=== PATIENT | female | born 1965 | race Asian ===

== ENCOUNTER 2017-09-02 23:56 | Emergency (ER) | payer OTHER ==
[2017-09-03 00:10] VITALS: BP 138/87
--- NOTE | 2017-09-03 02:49 | ED Physician Documentation ---
PD HPI SKIN - Stated complaint Stated Complaint: BODY PAIN - Chief complaint Chief Complaint: General - History obtained from History obtained from: Patient - History of Present Illness Timing - onset: How many days ago (chronic, but more severe past few days) Pain level now: 6 Location: Bodywide (pain is most pronounced in bilateral knees, ankles, and wrists) Associated symptoms: Joint pain. No: Fever Similar symptoms before: Diagnosis (psoriasis) - Additional information Additional information: patient with chronic and severe psoriasis c/o significantly worsening extent of skin lesions as well as joint pains over past few days. recently ran out of topical steroid. 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: None : None HEENT: None Psych: Depression, Anxiety Musculoskeletal: None Derm: Psoriasis - Past Surgical History Past Surgical History: No /GROUP CARE WORKER: section, Dilation and currettage - Present Medications Home Medications: Ambulatory Orders Medication Instructions Recorded Confirmed Lisinopril 40 mg PO DAILY 04/10/13 10/28/14 Simvastatin [Zocor] 40 mg PO HS 04/10/13 10/28/14 metFORMIN [Glucophage] 1,000 tab PO BID 04/10/13 10/28/14 Aspirin [Aspirin EC] 325 mg PO QDAC 11/15/13 10/28/14 Insulin Glargine,Hum.rec.anlog 50 units SQ BID 11/15/13 10/28/14 [Lantus] Gabapentin 400 mg PO TID 10/28/14 10/28/14 Hydroxyzine HCl 50 mg PO QID 10/28/14 10/28/14 Lorazepam [Ativan] 1 mg PO TID PRN #5 tablet 10/28/14 Propranolol [Inderal] 10 mg PO BID 10/28/14 10/28/14 Quetiapine Fumarate [Seroquel] 25 mg PO BID 10/28/14 10/28/14 Tizanidine/Irr Cntr-Irr Comb#2 4 mg PO QID 10/28/14 10/28/14 [Comfort Pac-Tizanidine Kit] Trazodone HCl 50 mg PO DAILY 10/28/14 10/28/14 Venlafaxine HCl [Venlafaxine HCl 225 mg PO DAILY 10/28/14 10/28/14 ER] Zolpidem [Ambien] 10 mg PO DAILY 10/28/14 10/28/14 Prednisone 10 mg PO [id number] #1 tab.ds.pk 09/03/17 oxyCODONE/ACET 5/325 [Percocet 5 1 - 2 each PO Q6H PRN #14 tablet 09/03/17 mg/325 mg] - Allergies Allergies/Adverse Reactions: Allergies Allergy/AdvReac Type Severity Reaction Status Date / Time tramadol Allergy Unknown Anxiety Verified 09/03/17 00:10 bupropion HCl * AdvReac Unknown Anxiety Verified 09/03/17 00:10 [From Wellbutrin] fluoxetine HCl * AdvReac Unknown Hallucinati Verified 09/03/17 00:10 [From Prozac] ons rosiglitazone AdvReac Unknown Rash Verified 09/03/17 00:10 - Social History Does the pt smoke?: Yes Smoking Status: Current every day smoker Does the pt drink ETOH?: Yes Does the pt have substance abuse?: Yes - Immunizations Immunizations are current?: Yes - POLST Patient has POLST: No PD ED PE NORMAL - Vitals Vital signs reviewed: Yes - General General: Alert and oriented X 3, No acute distress, Well developed/nourished PD ED PE EXPANDED - Derm Derm: Rash (extensive, diffuse psoriasis that appears to be body-wide) - Extremities Extremities: Pedal edema bilateral Results - Vitals Vitals: Vital Signs - 24 hr 09/03/17 03:13 Heart Rate 84 Respiratory 16 Rate O2 Saturation 99 Oxygen O2 Source Room air PD MEDICAL DECISION MAKING - ED course Complexity details: reviewed old records, considered differential, d/w patient Departure - Departure Disposition: 01 Home, Self Care Clinical Impression: Psoriasis Condition: Good Instructions: ED Psoriasis Follow-Up: LAN LEYVA [Primary Care Provider] - Prescriptions: oxyCODONE/ACET 5/325 [Percocet 5 mg/325 mg] 1 - 2 each PO Q6H PRN #14 tablet PRN Reason: Pain Prednisone 10 mg PO [id number] #1 tab.ds.pk Discharge Date/Time: 09/03/17 03:15
[2017-09-03] MEDS ORDERED: oxyCODONE/ACET 5/325 Prepack 4 PO STA (03:01)
[2017-09-03] MEDS ORDERED: predniSONE 20 MG TABLET PO STA (03:02)
[2017-09-03] MEDS ORDERED: predniSONE 20 MG TABLET ONE (03:11)
[2017-09-03] MEDS ORDERED: oxyCODONE/ACET 5/325 Prepack 4 PO ONE (03:11)
== END 2017-09-03 03:15 | disposition home or self-care (01) ==
LOC: ED 23:56
DX: L40.9 Psoriasis, unspecified (principal); I10 Essential (primary) hypertension; E11.9 Type 2 diabetes mellitus without complications; F17.200 Nicotine dependence, unspecified, uncomplicated; Z79.82 Long term (current) use of aspirin; Z79.4 Long term (current) use of insulin
CPT/HCPCS: 99283; J7512

== ENCOUNTER 2018-04-16 10:53 | Outpatient (CLI) | payer OTHER ==
[2018-04-16 12:45] LABS: BASOPHILS # (AUTO) 0.1 10^3/uL (0.0-0.1); BASOPHILS % (AUTO) 0.8 %; EOSINOPHILS # (AUTO) 0.2 10^3/uL (0.0-0.7); EOSINOPHILS % (AUTO) 2.7 %; HGB - HEMOGLOBIN 12.5 g/dL (12.0-16.0); LYMPHOCYTES # (AUTO) 1.8 10^3/uL (1.5-3.5); LYMPHOCYTES % (AUTO) 23.2 %; MEAN CORPUSCULAR HEMOGLOBIN 29.9 pg (27.0-31.0); MEAN CORPUSCULAR HGB CONC 34.4 g/dL (32.0-36.0); MEAN PLATELET VOLUME 8.5 fL (7.9-10.8); MONOCYTES # (AUTO) 0.5 10^3/uL (0.0-1.0); MONOCYTES % (AUTO) 6.8 %; NEUTROPHILS # (AUTO) 5.3 10^3/uL (1.5-6.6); NEUTROPHILS % (AUTO) 66.5 %; PLT - PLATELET COUNT 169 10^3/uL (130-450); RED BLOOD COUNT 4.18 10^6/uL (4.20-5.40); RED CELL DISTRIBUTION WIDTH 12.7 % (12.0-15.0)
[2018-04-16 12:56] LABS: BUN - BLOOD UREA NITROGEN 19 mg/dL (6-20); CALCIUM 8.6 mg/dL (8.5-10.3); CARBON DIOXIDE - CO2 29 mmol/L (21-32); CHLORIDE 93 mmol/L (101-111); CHOL/HDL RATIO 5.3 (<4.4); CHOLESTEROL 231 mg/dL; CREATININE 0.9 mg/dL (0.4-1.0); GFR - MDRD 66 (>89); GLUCOSE 309 mg/dL (70-100); HDL CHOLESTEROL 44 mg/dL; LDL CHOLESTEROL,CALCULATED 161 mg/dL; LDL/HDL RATIO 3.7 (<4.4); SODIUM 130 mmol/L (135-145); VLDL CHOLESTEROL 26 mg/dL
[2018-04-16 13:10] LABS: HB2 TOTAL 13.4 g/dL; HEMOGLOBIN A1C 1.65 g/dL; HEMOGLOBIN A1C % 13.4 % (4.6-6.2)
== END 2018-04-16 10:54 ==
LOC: LAB.N 10:53
PROVIDERS: ATTEND Physician Assistant Medical
DX: Z00.00 Encounter for general adult medical examination without abnormal findings (principal); I10 Essential (primary) hypertension; E11.9 Type 2 diabetes mellitus without complications; L04.9 Acute lymphadenitis, unspecified; F11.20 Opioid dependence, uncomplicated; F31.81 Bipolar II disorder
CPT/HCPCS: 36415; 80048; 80061; 83036; 83721; 84443; 85025

== ENCOUNTER 2018-05-07 08:31 | Day surgery (SDC) | payer OTHER ==
[2018-05-07] MEDS ORDERED: LACTATED RINGERS 1,000 ML IV ONE (09:10)
[2018-05-07] MEDS ORDERED: INSULIN REGULAR HUMAN 100 UNIT/1 ML 10 ML MDV ONE (09:43)
[2018-05-07] MEDS ORDERED: fentaNYL 100 MCG/2 ML VIAL IVP ONE (10:15)
[2018-05-07] MEDS ORDERED: MIDAZOLAM 2 MG/2 ML VIAL IVP ONE (10:15)
[2018-05-07] MEDS: INSULIN REGULAR HUMAN 100 UNIT/1 ML 10 ML MDV ONE ×2 (10:56→10:58)
[2018-05-07] MEDS ORDERED: SODIUM CHLORIDE FLUSH 0.9% 10 ML SYRINGE ONE (11:06)
[2018-05-07 11:28] VITALS: BP 99/67
== END 2018-05-07 08:32 | disposition home or self-care (01) ==
LOC: SDS 08:31
PROVIDERS: ATTEND Surgery
PROC: 0DJD8ZZ Inspection of Lower Intestinal Tract, Via Natural or Artificial Opening Endoscopic (ICD-10-PCS; principal; 2018-05-07 10:00)
DX: Z12.11 Encounter for screening for malignant neoplasm of colon (principal); E11.9 Type 2 diabetes mellitus without complications; I10 Essential (primary) hypertension; E78.5 Hyperlipidemia, unspecified; Z79.4 Long term (current) use of insulin; Z79.84 Long term (current) use of oral hypoglycemic drugs; L40.0 Psoriasis vulgaris; Z87.891 Personal history of nicotine dependence
CPT/HCPCS: 45378; J1815; J7120

== ENCOUNTER 2018-09-23 16:59 | Outpatient (CLI) | payer OTHER | END 2018-09-23 17:00 | disposition critical access hospital (66) | LOC: EMS 16:59 | PROVIDERS: ATTEND Surgery | DX: R11.10 Vomiting, unspecified (principal); R47.81 Slurred speech | CPT/HCPCS: A0425; A0427 ==

== ENCOUNTER 2018-09-23 17:23 | Emergency (ER) | payer OTHER ==
[2018-09-23] MEDS ORDERED: SODIUM CHLORIDE 0.9% 1,000 ML IV ONE (17:45)
[2018-09-23] MEDS ORDERED: THIAMINE INJ 100 MG in SODIUM CHLORIDE 0.9% 50 ML IV STA (17:45)
[2018-09-23 18:12] LABS: MUDS CUTOFF CONCENTRATIONS CUTOFF CONC BELOW:
--- NOTE | 2018-09-23 18:20 | ED Physician Documentation ---
History of Present Illness - Stated complaint Stated Complaint: ETOH - Chief complaint Chief Complaint: General - History obtained from History obtained from: Patient, EMS - History of Present Illness Timing: Today (52-year-old woman, I am getting a different history from the nurse's notes then I am from the patient's. The nurse's notes were reviewed, I guess she was somnolent at home. She is awake and alert for me and says she is having trouble sleeping and would like something to help her sleep. She has had a lot of trouble with her demented father and his behavior at home and she plans for him to be soon going back to the [facility]. She has no specific complaints other than wanting to me to sleep. 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 : None HEENT: None Psych: Depression, Anxiety Musculoskeletal: None Derm: Psoriasis - Past Surgical History Past Surgical History: No /REGISTRATION SCHEDULING SPECIALIST: section, Dilation and currettage - Present Medications Home Medications: Ambulatory Orders Medication Instructions Recorded Confirmed Lisinopril 40 mg PO DAILY 04/10/13 05/07/18 Simvastatin [Zocor] 40 mg PO HS 04/10/13 05/07/18 Insulin Glargine,Hum.rec.anlog 50 units SQ DAILY PM 11/15/13 05/07/18 [Lantus] Gabapentin 1 mg PO TID 10/28/14 05/07/18 Hydroxyzine HCl 50 mg PO QID PRN 10/28/14 10/28/14 Venlafaxine HCl [Venlafaxine HCl 225 mg PO DAILY 10/28/14 05/07/18 ER] Zolpidem [Ambien] 10 mg PO DAILY 10/28/14 05/07/18 Aspirin [Adult Aspirin Regimen] 1 mg PO DAILY 05/06/18 05/07/18 metFORMIN [Glucophage] 1 mg PO BID 05/06/18 05/07/18 - Allergies Allergies/Adverse Reactions: Allergies Allergy/AdvReac Type Severity Reaction Status Date / Time tramadol Allergy Unknown Anxiety Verified 09/03/17 00:10 bupropion HCl * AdvReac Unknown Anxiety Verified 09/03/17 00:10 [From Wellbutrin] fluoxetine HCl * AdvReac Unknown Hallucinati Verified 09/03/17 00:10 [From Prozac] ons rosiglitazone AdvReac Unknown Rash Verified 09/03/17 00:10 - Social History Does the pt smoke?: Yes Smoking Status: Current every day smoker Does the pt drink ETOH?: Yes ETOH Use: Liquor Does the pt have substance abuse?: Yes - Immunizations Immunizations are current?: Yes - POLST Patient has POLST: No PD ED PE NORMAL - Vitals Vital signs reviewed: Yes - General General: Alert and oriented X 3, No acute distress - HEENT HEENT: PERRL, EOMI - Neck Neck: Supple, no meningeal sign, No bony TTP - Derm Derm: Other (Chronic bad psoriasis) - Neuro Neuro: Alert and oriented X 3, Normal speech - Psych Psych: Normal mood, Normal affect Results - Vitals Vitals: Vital Signs - 24 hr 09/23/18 17:27 Temperature 36.2 C L Heart Rate 103 H Respiratory 20 Rate Blood Pressure 114/74 O2 Saturation 100 Oxygen O2 Source Room air - Labs Labs: Laboratory Tests 09/23/18 09/23/18 09/23/18 18:00 18:20 18:20 WBC 4.4 L RBC 4.64 Hgb 13.8 Hct 40.1 MCV 86.5 MCH 29.7 MCHC 34.4 RDW 13.6 Plt Count 250 MPV 7.9 Neut # (Auto) 1.8 Lymph # (Auto) 2.1 [place] # (Auto) 0.4 Eos # (Auto) 0.1 Baso # (Auto) 0.1 Absolute Nucleated RBC 0.01 Nucleated RBC % 0.2 Sodium 136 Potassium 4.5 Chloride 98 L Carbon Dioxide 26 Anion Gap 12.0 BUN 18 Creatinine 1.1 H Estimated GFR (MDRD) 53 L Glucose 370 H Calcium 8.6 Total Bilirubin 0.5 AST 62 H ALT 45 Alkaline Phosphatase 84 Total Protein 7.5 Albumin 3.5 Globulin 4.0 Albumin/Globulin Ratio 0.9 L Lipase 54 H Urine Color YELLOW Urine Clarity CLEAR Urine pH 7.0 Ur Specific [place] 1.010 Urine Protein NEGATIVE Urine Glucose (UA) >=1000 H Urine Ketones NEGATIVE Urine Occult Blood NEGATIVE Urine Nitrite NEGATIVE Urine Bilirubin NEGATIVE Urine Urobilinogen 0.2 (NORMAL) Ur Leukocyte Esterase NEGATIVE Ur Microscopic Review NOT INDICATED Urine Culture Comments NOT INDICATED Salicylates < 6.0 Urine Opiates Screen NEGATIVE Ur Oxycodone Screen NEGATIVE Urine Methadone Screen NEGATIVE Ur Propoxyphene Screen NEGATIVE Acetaminophen < 10 L Ur Barbiturates Screen NEGATIVE Ur Tricyclics Screen NEGATIVE Ur Phencyclidine Scrn NEGATIVE Ur Amphetamine Screen NEGATIVE U Methamphetamines Scrn NEGATIVE U Benzodiazepines Scrn NEGATIVE Urine Cocaine Screen NEGATIVE U Cannabinoids Screen NEGATIVE Ethyl Alcohol 160.0 PD MEDICAL DECISION MAKING - ED course ED course: 52-year-old woman presents after being obtunded at home related to alcohol abuse but complaining of poor sleep with no evidence of obtundation here. She was observed and had normal mental status. Labs as shown. She was given 2 trazodone to go for tonight. 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 Follow-up with your physician. You can also call Paulie napoles for outpatient alcohol counseling, .
[2018-09-23 18:21] LABS: BILIRUBIN,URINE NEGATIVE (NEGATIVE); GLUCOSE, URINE (UA) >=1000 mg/dL (NEGATIVE); KETONES,URINE (UA) NEGATIVE (NEGATIVE); LEUKOCYTE ESTERASE, URINE NEGATIVE (NEGATIVE); NITRITE,URINE NEGATIVE (NEGATIVE); OCCULT BLOOD,URINE NEGATIVE (NEGATIVE); PROTEIN,URINE NEGATIVE (NEGATIVE); UROBILINOGEN,URINE 0.2 (NORMAL) E.U./dL (NORMAL)
[2018-09-23 18:23] LABS: CLARITY,URINE CLEAR (CLEAR)
[2018-09-23 18:32] LABS: AMPHETAMINE SCREEN,URINE NEGATIVE (NEGATIVE); BENZODIAZEPINES SCREEN, URINE NEGATIVE (NEGATIVE); COCAINE SCREEN URINE NEGATIVE (NEGATIVE); METHADONE SCREEN, URINE NEGATIVE (NEGATIVE); METHAMPHETAMINES SCREEN, URINE NEGATIVE (NEGATIVE); OPIATE SCREEN, URINE NEGATIVE (NEGATIVE); OXYCODONE SCREEN, URINE NEGATIVE (NEGATIVE); PROPOXYPHENE SCREEN, URINE NEGATIVE (NEGATIVE); TRICYCLIC ANTIDEPRESSANT,URINE NEGATIVE (NEGATIVE)
[2018-09-23 18:38] LABS: BASOPHILS # (AUTO) 0.1 10^3/uL (0.0-0.1); EOSINOPHILS # (AUTO) 0.1 10^3/uL (0.0-0.7); EOSINOPHILS % (AUTO) 2.5 %; HGB - HEMOGLOBIN 13.8 g/dL (12.0-16.0); LYMPHOCYTES # (AUTO) 2.1 10^3/uL (1.5-3.5); LYMPHOCYTES % (AUTO) 47.1 %; MEAN CORPUSCULAR HEMOGLOBIN 29.7 pg (27.0-31.0); MEAN CORPUSCULAR HGB CONC 34.4 g/dL (32.0-36.0); MEAN CORPUSCULAR VOLUME 86.5 fL (81.0-99.0); MEAN PLATELET VOLUME 7.9 fL (7.9-10.8); MONOCYTES # (AUTO) 0.4 10^3/uL (0.0-1.0); MONOCYTES % (AUTO) 8.4 %; NEUTROPHILS # (AUTO) 1.8 10^3/uL (1.5-6.6); PLT - PLATELET COUNT 250 10^3/uL (130-450); RED BLOOD COUNT 4.64 10^6/uL (4.20-5.40); RED CELL DISTRIBUTION WIDTH 13.6 % (12.0-15.0); WHITE BLOOD COUNT 4.4 x10^3/uL (4.8-10.8)
[2018-09-23 18:42] LABS: ACETAMINOPHEN < 10 ug/mL (10-30); ALBUMIN 3.5 g/dL (3.2-5.5); ALBUMIN/GLOBULIN RATIO 0.9 (1.0-2.2); ALKALINE PHOSPHATASE 84 IU/L (42-121); ALT ALANINE AMINOTRANSFERASE 45 IU/L (10-60); AST ASPARTATE AMINOTRANSFERASE 62 IU/L (10-42); BILIRUBIN,TOTAL 0.5 mg/dL (0.2-1.0); BUN - BLOOD UREA NITROGEN 18 mg/dL (6-20); CALCIUM 8.6 mg/dL (8.5-10.3); CARBON DIOXIDE - CO2 26 mmol/L (21-32); CHLORIDE 98 mmol/L (101-111); CREATININE 1.1 mg/dL (0.4-1.0); GFR - MDRD 53 (>89); GLUCOSE 370 mg/dL (70-100); LIPASE 54 U/L (22-51); SALICYLATE < 6.0 mg/dL; SODIUM 136 mmol/L (135-145); TOTAL PROTEIN 7.5 g/dL (6.7-8.2)
[2018-09-23] MEDS ORDERED: traZODone 50 MG TABLET PO STA (18:46)
[2018-09-23 19:37] VITALS: BP 127/85
== END 2018-09-23 19:42 | disposition home or self-care (01) ==
LOC: EDUNIT# → ED 17:23
DX: F10.129 Alcohol abuse with intoxication, unspecified (principal); I10 Essential (primary) hypertension; E11.9 Type 2 diabetes mellitus without complications; Z79.4 Long term (current) use of insulin; Z79.82 Long term (current) use of aspirin; F17.200 Nicotine dependence, unspecified, uncomplicated
CPT/HCPCS: 36415; 80053; 80306; 80307; 80320; 80329; 81003; 83690; 85025; 96374; 99283; A9270; 81001; 87086

== ENCOUNTER 2018-10-03 14:44 | Outpatient (CLI) | payer OTHER | END 2018-10-03 14:45 | disposition critical access hospital (66) | LOC: EMS 14:44 | PROVIDERS: ATTEND Surgery | DX: R41.82 Altered mental status, unspecified (principal) | CPT/HCPCS: A0425; A0429 ==

== ENCOUNTER 2018-10-03 15:07 | Emergency (ER) | payer OTHER ==
[2018-10-03] MEDS ORDERED: OLANZapine 10 MG VIAL IM STA (15:12)
--- NOTE | 2018-10-03 15:25 | ED Physician Documentation ---
PD HPI ALTERED MENTAL STATUS - Stated complaint Stated Complaint: ETOH - Chief complaint Chief Complaint: Neuro - History obtained from History obtained from: Patient, EMS - History of Present Illness Timing - onset: Today Timing - duration: Days (1) Timing - details: Other (unknown) Quality / character: Confused, Combative Associated symptoms: Other (patient reportedly drinking etoh today, ran from police and fell.) Contributing factors: Diabetic, Other (etoh) Basline status: Alert and oriented X 3 Similar symptoms before: Diagnosis (etoh intoxication) Review of Systems Unable to obtain: Confused PD PAST MEDICAL HISTORY - Past Medical History Past Medical History: Yes Cardiovascular: Hypertension, High cholesterol Respiratory: Asthma Endocrine/Autoimmune: Type 2 diabetes GI: GERD 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 : None HEENT: None Psych: Depression, Anxiety Musculoskeletal: None Derm: Psoriasis - Past Surgical History Past Surgical History: No /DRIVER 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: section, 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 and currettage - Present Medications Home Medications: Ambulatory Orders Medication Instructions Recorded Confirmed Lisinopril 40 mg PO DAILY 04/10/13 05/07/18 Simvastatin [Zocor] 40 mg PO HS 04/10/13 05/07/18 Insulin Glargine,Hum.rec.anlog 50 units SQ DAILY PM 11/15/13 05/07/18 [Lantus] Gabapentin 1 mg PO TID 10/28/14 05/07/18 Hydroxyzine HCl 50 mg PO QID PRN 10/28/14 10/28/14 Venlafaxine HCl [Venlafaxine HCl 225 mg PO DAILY 10/28/14 05/07/18 ER] Zolpidem [Ambien] 10 mg PO DAILY 10/28/14 05/07/18 Aspirin [Adult Aspirin Regimen] 1 mg PO DAILY 05/06/18 05/07/18 metFORMIN [Glucophage] 1 mg PO BID 05/06/18 05/07/18 Nitrofurantoin Monohyd/M-Cryst 100 mg PO BID #10 capsule 10/03/18 [Macrobid 100 mg Capsule] - Allergies Allergies/Adverse Reactions: Allergies Allergy/AdvReac Type Severity Reaction Status Date / Time tramadol Allergy Unknown Anxiety Verified 10/03/18 15:14 bupropion HCl * AdvReac Unknown Anxiety Verified 10/03/18 15:14 [From Wellbutrin] fluoxetine HCl * AdvReac Unknown Hallucinati Verified 10/03/18 15:14 [From Prozac] ons rosiglitazone AdvReac Unknown Rash Verified 10/03/18 15:14 - Social History Does the pt smoke?: Yes Smoking Status: Current every day smoker Does the pt drink ETOH?: Yes Does the pt have substance abuse?: Yes - Immunizations Immunizations are current?: Yes - POLST Patient has POLST: No PD ED PE NORMAL - Vitals Vital signs reviewed: Yes - General General: No acute distress - HEENT HEENT: PERRL, Ears normal, Moist mucous membranes, Pharynx benign - Neck Neck: Supple, no meningeal sign, No adenopathy - Cardiac Cardiac: RRR, Strong equal pulses - Respiratory Respiratory: No respiratory distress, Clear bilaterally - Abdomen Abdomen: Soft, Non tender, Non distended - Back Back: No spinal TTP - Derm Derm: Warm and dry, Other (diffuse eczema) - Extremities Extremities: No edema - Neuro Neuro: Other (alert, combative) Results - Vitals Vitals: Vital Signs - 24 hr 10/03/18 10/03/18 10/03/18 15:09 16:09 17:20 Temperature 36.0 C L Heart Rate 100 88 66 Respiratory 12 20 Rate Blood Pressure 94/65 122/79 O2 Saturation 100 99 100 Oxygen O2 Source Room air - Labs Labs: Laboratory Tests 10/03/18 10/03/18 10/03/18 15:25 15:25 15:25 WBC 5.5 RBC 4.14 L Hgb 12.4 Hct 36.1 L MCV 87.1 MCH 29.9 MCHC 34.3 RDW 13.4 Plt Count 234 MPV 7.6 L Neut # (Auto) 3.0 Lymph # (Auto) 1.9 [place] # (Auto) 0.3 Eos # (Auto) 0.2 Baso # (Auto) 0.1 Absolute Nucleated RBC 0.00 Nucleated RBC % 0.1 Sodium 135 Potassium 3.7 Chloride 101 Carbon Dioxide 25 Anion Gap 9.0 BUN 8 Creatinine 0.9 Estimated GFR (MDRD) 66 L Glucose 295 H Calcium 8.8 Total Bilirubin 0.4 AST 37 ALT 27 Alkaline Phosphatase 77 Total Protein 7.7 Albumin 3.5 Globulin 4.2 Albumin/Globulin Ratio 0.8 L Lipase 62 H TSH 0.39 Urine Color Urine Clarity Urine pH Ur Specific [place] Urine Protein Urine Glucose (UA) Urine Ketones Urine Occult Blood Urine Nitrite Urine Bilirubin Urine Urobilinogen Ur Leukocyte Esterase Urine RBC Urine WBC Urine WBC Clumps Ur Squamous Epith Cells Urine Bacteria Ur Microscopic Review Urine Culture Comments Urine HCG, Qual Salicylates < 6.0 Urine Opiates Screen Ur Oxycodone Screen Urine Methadone Screen Ur Propoxyphene Screen Acetaminophen < 10 L Ur Barbiturates Screen Ur Tricyclics Screen Ur Phencyclidine Scrn Ur Amphetamine Screen U Methamphetamines Scrn U Benzodiazepines Scrn Urine Cocaine Screen U Cannabinoids Screen Ethyl Alcohol 242.7 10/03/18 10/03/18 17:10 17:10 WBC RBC Hgb Hct MCV MCH MCHC RDW Plt Count MPV Neut # (Auto) Lymph # (Auto) [place] # (Auto) Eos # (Auto) Baso # (Auto) Absolute Nucleated RBC Nucleated RBC % Sodium Potassium Chloride Carbon Dioxide Anion Gap BUN Creatinine Estimated GFR (MDRD) Glucose Calcium Total Bilirubin AST ALT Alkaline Phosphatase Total Protein Albumin Globulin Albumin/Globulin Ratio Lipase TSH Urine Color YELLOW Urine Clarity CLEAR Urine pH 6.0 Ur Specific [place] <=1.005 <=1.005 Urine Protein NEGATIVE Urine Glucose (UA) >=1000 H Urine Ketones NEGATIVE Urine Occult Blood NEGATIVE Urine Nitrite NEGATIVE Urine Bilirubin NEGATIVE Urine Urobilinogen 0.2 (NORMAL) Ur Leukocyte Esterase TRACE H Urine RBC 0-5 Urine WBC 11-25 H Urine WBC Clumps PRESENT Ur Squamous Epith Cells FEW Squamous Urine Bacteria Many H Ur Microscopic Review INDICATED Urine Culture Comments INDICATED Urine HCG, Qual NEGATIVE Salicylates Urine Opiates Screen NEGATIVE Ur Oxycodone Screen NEGATIVE Urine Methadone Screen NEGATIVE Ur Propoxyphene Screen NEGATIVE Acetaminophen Ur Barbiturates Screen NEGATIVE Ur Tricyclics Screen NEGATIVE Ur Phencyclidine Scrn NEGATIVE Ur Amphetamine Screen NEGATIVE U Methamphetamines Scrn NEGATIVE U Benzodiazepines Scrn POSITIVE H Urine Cocaine Screen NEGATIVE U Cannabinoids Screen NEGATIVE Ethyl Alcohol - Rads (name of study) head w/o ct Radiology: Prelim report reviewed, EMP read contemporaneously, See rad report (Negative nonenhanced head CT. ) PD MEDICAL DECISION MAKING - ED course Complexity details: reviewed results, re-evaluated patient, considered differential, d/w patient, d/w family ED course: Patient is a 52-year-old female who presents to the emergency department with altered mental status secondary to alcohol intoxication. No acute findings on laboratory testing or head CT other than her elevated alcohol level. She was given Zyprexa and placed in restraints initially, then slept in the emergency department. Her mental status is improved when she awoke. is comfortable taking her home at this time. Patient and family counseled regarding signs and symptoms for which I believe and urgent re-evaluation would be necessary. Patient with good understanding of and agreement to plan and is comfortable going home at this time This document was made in part using voice recognition software. While efforts are made to proofread this document, sound alike and grammatical errors may occur. Departure - Departure Disposition: Home, Self Care Clinical Impression: Alcohol intoxication UTI (urinary tract infection) Qualifiers: Urinary tract infection type: acute cystitis Hematuria presence: without aaron turia Qualified Code(s): N30.00 - Acute cystitis without hematuria Condition: Good Instructions: ED Alcohol Intoxication Follow-Up: Joel Andujar PA-C [Primary Care Provider] - Within 1 week Prescriptions: Nitrofurantoin Monohyd/M-Cryst [Macrobid 100 mg Capsule] 100 mg PO BID #10 capsule Comments: Return if you worsen. You need to stop drinking alcohol as eventually this will kill you. You need to take all antibiotics for your bladder infection. Discharge Date/Time: 10/03/18 17:55
[2018-10-03 15:31] LABS: BASOPHILS # (AUTO) 0.1 10^3/uL (0.0-0.1); BASOPHILS % (AUTO) 0.9 %; EOSINOPHILS # (AUTO) 0.2 10^3/uL (0.0-0.7); EOSINOPHILS % (AUTO) 3.2 %; HGB - HEMOGLOBIN 12.4 g/dL (12.0-16.0); LYMPHOCYTES # (AUTO) 1.9 10^3/uL (1.5-3.5); LYMPHOCYTES % (AUTO) 35.2 %; MEAN CORPUSCULAR HEMOGLOBIN 29.9 pg (27.0-31.0); MEAN CORPUSCULAR HGB CONC 34.3 g/dL (32.0-36.0); MEAN CORPUSCULAR VOLUME 87.1 fL (81.0-99.0); MEAN PLATELET VOLUME 7.6 fL (7.9-10.8); MONOCYTES # (AUTO) 0.3 10^3/uL (0.0-1.0); MONOCYTES % (AUTO) 6.3 %; NEUTROPHILS % (AUTO) 54.4 %; PLT - PLATELET COUNT 234 10^3/uL (130-450); RED BLOOD COUNT 4.14 10^6/uL (4.20-5.40); RED CELL DISTRIBUTION WIDTH 13.4 % (12.0-15.0); WHITE BLOOD COUNT 5.5 x10^3/uL (4.8-10.8)
[2018-10-03 15:46] LABS: ACETAMINOPHEN < 10 ug/mL (10-30); ALBUMIN 3.5 g/dL (3.2-5.5); ALBUMIN/GLOBULIN RATIO 0.8 (1.0-2.2); ALKALINE PHOSPHATASE 77 IU/L (42-121); ALT ALANINE AMINOTRANSFERASE 27 IU/L (10-60); AST ASPARTATE AMINOTRANSFERASE 37 IU/L (10-42); BILIRUBIN,TOTAL 0.4 mg/dL (0.2-1.0); BUN - BLOOD UREA NITROGEN 8 mg/dL (6-20); CALCIUM 8.8 mg/dL (8.5-10.3); CARBON DIOXIDE - CO2 25 mmol/L (21-32); CHLORIDE 101 mmol/L (101-111); CREATININE 0.9 mg/dL (0.4-1.0); GFR - MDRD 66 (>89); GLUCOSE 295 mg/dL (70-100); LIPASE 62 U/L (22-51); SALICYLATE < 6.0 mg/dL; SODIUM 135 mmol/L (135-145); TOTAL PROTEIN 7.7 g/dL (6.7-8.2)
--- NOTE | 2018-10-03 16:21 | CT Report ---
Reason: GABY WHITE Procedure Date: 10/03/2018 Accession Number: [id number] / [id number] Procedure: CT - Head W/O CPT Code: FULL RESULT: EXAM: CT HEAD EXAM DATE: 10/03/2018 04:05 PM. CLINICAL HISTORY: GABY WHITE. COMPARISON: HEAD W/O 12/20/2013 7:07 AM. TECHNIQUE: Multiaxial CT images were obtained from the foramen magnum to the vertex. Reformats: Sagittal and coronal. IV contrast: None. In accordance with CT protocol optimization, one or more of the following dose reduction techniques were utilized for this exam: automated exposure control, adjustment of mA and/or KV based on patient size, or use of iterative reconstructive technique. FINDINGS: Parenchyma: No intraparenchymal hemorrhage. No evidence of mass, midline shift, or CT findings of infarction. Bentley-white differentiation is distinct. Extraaxial Spaces: Normal for age. No subdural or epidural collections identified. Ventricles: Normal in size and position. Sinuses and Orbits: Imaged paranasal sinuses, orbits, and mastoids show no significant abnormality. Bones: No evidence of fracture or calvarial defect. Other: None. IMPRESSION: Negative nonenhanced head CT. RADIA
[2018-10-03 17:12] LABS: MUDS CUTOFF CONCENTRATIONS CUTOFF CONC BELOW:
[2018-10-03 17:19] LABS: BILIRUBIN,URINE NEGATIVE (NEGATIVE); GLUCOSE, URINE (UA) >=1000 mg/dL (NEGATIVE); KETONES,URINE (UA) NEGATIVE (NEGATIVE); LEUKOCYTE ESTERASE, URINE TRACE (NEGATIVE); NITRITE,URINE NEGATIVE (NEGATIVE); OCCULT BLOOD,URINE NEGATIVE (NEGATIVE); PROTEIN,URINE NEGATIVE (NEGATIVE); UROBILINOGEN,URINE 0.2 (NORMAL) E.U./dL (NORMAL)
[2018-10-03 17:21] VITALS: BP 122/79
[2018-10-03 17:31] LABS: CLARITY,URINE CLEAR (CLEAR)
[2018-10-03 17:32] LABS: AMPHETAMINE SCREEN,URINE NEGATIVE (NEGATIVE); BENZODIAZEPINES SCREEN, URINE POSITIVE (NEGATIVE); COCAINE SCREEN URINE NEGATIVE (NEGATIVE); HCG UR QUAL NEGATIVE; METHADONE SCREEN, URINE NEGATIVE (NEGATIVE); METHAMPHETAMINES SCREEN, URINE NEGATIVE (NEGATIVE); OPIATE SCREEN, URINE NEGATIVE (NEGATIVE); OXYCODONE SCREEN, URINE NEGATIVE (NEGATIVE); PROPOXYPHENE SCREEN, URINE NEGATIVE (NEGATIVE); TRICYCLIC ANTIDEPRESSANT,URINE NEGATIVE (NEGATIVE)
[2018-10-03 17:35] LABS: RBC,URINE 0-5 /HPF (0-5); WBC CLUMPS,URINE PRESENT
[2018-10-03 17:36] LABS: BACTERIA,URINE Many /HPF (None Seen); SQUAMOUS EPITHELIAL CELL,UR FEW Squamous (<= Few)
[2018-10-03] MEDS ORDERED: LIDOCAINE 1% 2 ML VIAL SUBQ ONE (17:37)
[2018-10-03] MEDS ORDERED: cefTRIAXone 1 GM VIAL IM STA (17:37)
== END 2018-10-03 17:55 | disposition home or self-care (01) ==
LOC: EDUNIT# → ED 15:07
DX: F10.129 Alcohol abuse with intoxication, unspecified (principal); N30.00 Acute cystitis without hematuria; I10 Essential (primary) hypertension; E11.9 Type 2 diabetes mellitus without complications; F17.200 Nicotine dependence, unspecified, uncomplicated; Z79.4 Long term (current) use of insulin
CPT/HCPCS: 36415; 70450; 80053; 80306; 80307; 80320; 80329; 81001; 81003; 81025; 83690; 84443; 85025; 87086; 87181; 96372; 99283; 99284

== ENCOUNTER 2018-10-05 09:55 | Outpatient (CLI) | payer OTHER | END 2018-10-05 09:56 | disposition critical access hospital (66) | LOC: EMS 09:55 | PROVIDERS: ATTEND Surgery | DX: R07.81 Pleurodynia (principal); W10.9XXA Fall (on) (from) unspecified stairs and steps, initial encounter | CPT/HCPCS: A0425; A0429 ==

== ENCOUNTER 2018-10-05 10:16 | Emergency (ER) | payer OTHER ==
[2018-10-05] MEDS ORDERED: SODIUM CHLORIDE 0.9% 1,000 ML IV ONE (10:37)
[2018-10-05 10:59] LABS: BASOPHILS # (AUTO) 0.1 10^3/uL (0.0-0.1); BASOPHILS % (AUTO) 1.4 %; EOSINOPHILS # (AUTO) 0.2 10^3/uL (0.0-0.7); EOSINOPHILS % (AUTO) 3.7 %; LYMPHOCYTES # (AUTO) 1.5 10^3/uL (1.5-3.5); LYMPHOCYTES % (AUTO) 33.6 %; MEAN CORPUSCULAR VOLUME 88.1 fL (81.0-99.0); MEAN PLATELET VOLUME 7.5 fL (7.9-10.8); MONOCYTES # (AUTO) 0.3 10^3/uL (0.0-1.0); MONOCYTES % (AUTO) 7.6 %; NEUTROPHILS # (AUTO) 2.4 10^3/uL (1.5-6.6); NEUTROPHILS % (AUTO) 53.7 %; PLT - PLATELET COUNT 232 10^3/uL (130-450); RED BLOOD COUNT 4.32 10^6/uL (4.20-5.40); RED CELL DISTRIBUTION WIDTH 13.7 % (12.0-15.0); WHITE BLOOD COUNT 4.5 x10^3/uL (4.8-10.8)
[2018-10-05 11:09] LABS: CALCIUM 8.8 mg/dL (8.5-10.3); CREATININE 0.8 mg/dL (0.4-1.0)
--- NOTE | 2018-10-05 11:14 | ED Physician Documentation ---
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 : None HEENT: None Psych: Depression, Anxiety Musculoskeletal: None Derm: Psoriasis - Past Surgical History Past Surgical History: No /SEXUAL HEALTH PHYSICIAN: section, Dilation and currettage - Present Medications Home Medications: Ambulatory Orders Medication Instructions Recorded Confirmed Lisinopril 40 mg PO DAILY 04/10/13 05/07/18 Simvastatin [Zocor] 40 mg PO HS 04/10/13 05/07/18 Insulin Glargine,Hum.rec.anlog 50 units SQ DAILY PM 11/15/13 05/07/18 [Lantus] Gabapentin 1 mg PO TID 10/28/14 05/07/18 Hydroxyzine HCl 50 mg PO QID PRN 10/28/14 10/28/14 Venlafaxine HCl [Venlafaxine HCl 225 mg PO DAILY 10/28/14 05/07/18 ER] Zolpidem [Ambien] 10 mg PO DAILY 10/28/14 05/07/18 Aspirin [Adult Aspirin Regimen] 1 mg PO DAILY 05/06/18 05/07/18 metFORMIN [Glucophage] 1 mg PO BID 05/06/18 05/07/18 Nitrofurantoin Monohyd/M-Cryst 100 mg PO BID #10 capsule 10/03/18 [Macrobid 100 mg Capsule] - Allergies Allergies/Adverse Reactions: Allergies Allergy/AdvReac Type Severity Reaction Status Date / Time tramadol Allergy Unknown Anxiety Verified 10/05/18 10:32 bupropion HCl * AdvReac Unknown Anxiety Verified 10/05/18 10:32 [From Wellbutrin] fluoxetine HCl * AdvReac Unknown Hallucinati Verified 10/05/18 10:32 [From Prozac] ons rosiglitazone AdvReac Unknown Rash Verified 10/05/18 10:32 - Social History Does the pt smoke?: Yes Smoking Status: Current every day smoker Does the pt drink ETOH?: Yes Does the pt have substance abuse?: Yes - Immunizations Immunizations are current?: Yes - POLST Patient has POLST: No PD ED PE NORMAL - Vitals Vital signs reviewed: Yes - General General: No: Alert and oriented X 3 - HEENT HEENT: PERRL, Other (abrasion R cheek) - Neck Neck: No bony TTP (buit will need imaging 2/2 AMS) - Cardiac Cardiac: RRR - Respiratory Respiratory: No respiratory distress, Other (TTP L chest wall s crepitus) - Abdomen Abdomen: Soft, Non tender, Other (LUQ TTP) - Neuro Neuro: Other (moves fingers and toes otherwise not cooperative with neuro exam). No: Alert and oriented X 3 Results - Vitals Vitals: Vital Signs - 24 hr 10/05/18 10/05/18 10:25 13:11 Temperature 36.2 C L Heart Rate 102 H 97 Respiratory 20 12 Rate Blood Pressure 109/62 149/90 H O2 Saturation 99 100 Oxygen O2 Source Room air - Labs Labs: Laboratory Tests 10/05/18 10/05/18 10/05/18 10:45 10:45 11:40 WBC 4.5 L RBC 4.32 Hgb 13.0 Hct 38.1 MCV 88.1 MCH 30.0 MCHC 34.0 RDW 13.7 Plt Count 232 MPV 7.5 L Neut # (Auto) 2.4 Lymph # (Auto) 1.5 [place] # (Auto) 0.3 Eos # (Auto) 0.2 Baso # (Auto) 0.1 Absolute Nucleated RBC 0.00 Nucleated RBC % 0.0 Sodium 138 Potassium 3.1 L Chloride 100 L Carbon Dioxide 24 Anion Gap 14.0 H BUN 9 Creatinine 0.8 Estimated GFR (MDRD) 76 L Glucose 439 H Calcium 8.8 Serum HCG, Qual NEGATIVE Ethyl Alcohol 283.8 - Rads (name of study) CTH Radiology: See rad report (neg) CTCS Radiology: See rad report (no acute) CT chest Radiology: See rad report (no acute) CT AP Radiology: See rad report (no acute) PD MEDICAL DECISION MAKING - ED course ED course: long wait for CT pt awoke and was seen up and ambulating about the ED and talking on the phone I asked her how she felt and she said fine CT reports neg pt eloped without getting her blood sugar rechecked and without her dc instructions explaining not to take metformin for three days - called her phone and got no answer - left a message but no call back - should have been given a notice by [employer] Departure - Departure Disposition: ED [place] Clinical Impression: Alcohol abuse Mental status alteration Qualifiers: Altered mental status type: unspecified Qualified Code(s): R41.82 - Altered mental status, unspecified Fall down stairs Qualifiers: Encounter type: initial encounter Qualified Code(s): W10.8XXA - Fall (on) (from) other stairs and steps, initial encounter Condition: Fair Comments: Do not take your metformin for three days after getting contrast for the CT scan Discharge Date/Time: 10/05/18 15:10
[2018-10-05] MEDS ORDERED: IOPAMIDOL-300 100 ML VIAL ONE (12:01)
[2018-10-05] MEDS ORDERED: INSULIN REGULAR HUMAN 100 UNIT/1 ML 10 ML MDV IVP STA (12:52)
[2018-10-05 13:13] VITALS: BP 149/90
--- NOTE | 2018-10-05 13:50 | CT Report ---
Reason: fall down stairs AMS EtOH Procedure Date: 10/05/2018 Accession Number: [id number] / [id number] Procedure: CT - Head W/O CPT Code: FULL RESULT: EXAM: CT HEAD EXAM DATE: 10/05/2018 12:39 PM. CLINICAL HISTORY: Fall down stairs, altered mental status, alcohol. COMPARISON: HEAD W/O 10/03/2018 3:54 PM. TECHNIQUE: Multiaxial CT images were obtained from the foramen magnum to the vertex. Reformats: Sagittal and coronal. IV contrast: None. In accordance with CT protocol optimization, one or more of the following dose reduction techniques were utilized for this exam: automated exposure control, adjustment of mA and/or KV based on patient size, or use of iterative reconstructive technique. FINDINGS: Parenchyma: No intraparenchymal hemorrhage. No evidence of mass, midline shift, or CT findings of infarction. Bentley-white differentiation is distinct. Extraaxial Spaces: Normal for age. No subdural or epidural collections identified. Ventricles: Normal in size and position. Sinuses and Orbits: Imaged paranasal sinuses, orbits, and mastoids show no significant abnormality. Bones: No evidence of fracture or calvarial defect. Other: None. IMPRESSION: Normal head CT. RADIA
--- NOTE | 2018-10-05 14:02 | CT Report ---
Reason: fell down stairs EtOH AMS cant clear Procedure Date: 10/05/2018 Accession Number: [id number] / [id number] Procedure: CT - Cervical Spine W/O CPT Code: FULL RESULT: EXAM: CT CERVICAL SPINE WITHOUT CONTRAST DATE: 10/05/2018 12:39 PM. HISTORY: Fell down stairs EtOH AMS cant clear. COMPARISONS: HEAD W/O 10/03/2018 3:54 PM CERVICAL SPINE W/O 12/20/2013 7:10 AM. TECHNIQUE: Thin-section axial images were acquired of the cervical spine without contrast. Post-processing: Coronal and sagittal reformats. Other: None. In accordance with CT protocol optimization, one or more of the following dose reduction techniques were utilized for this exam: automated exposure control, adjustment of mA and/or KV based on patient size, or use of iterative reconstructive technique. FINDINGS: Alignment: No scoliosis or spondylolisthesis. Bones/discs: No acute fracture, subluxation, or compression deformity. Redemonstrated well-corticated ossicle adjacent to the anterior arch of C1 without change from the prior exam. The craniocervical junction is intact. Facet joint alignment is normal. There is mild to moderate multilevel degenerative facet arthropathy. Disc spaces are preserved. Musculature: Unremarkable. Other: The paravertebral and prevertebral soft tissues are unremarkable. The lung apices are clear. IMPRESSION: No acute fracture or malalignment of the cervical spine. RADIA
--- NOTE | 2018-10-05 14:17 | CT Report ---
Reason: fell down stairs EtOH LUQ abd pain Procedure Date: 10/05/2018 Accession Number: [id number] / [id number] Procedure: CT - Abdomen/Pelvis W/ CPT Code: FULL RESULT: EXAM: CT ABDOMEN AND PELVIS EXAM DATE: 10/05/2018 12:59 PM. CLINICAL HISTORY: Fell down stairs EtOH LUQ abd pain. COMPARISONS: ABDOMEN/PELVIS W/ 12/20/2013 7:20 AM. TECHNIQUE: Routine helical CT imaging was performed through the abdomen and pelvis. IV contrast: 100 mL Isovue-300. Enteric contrast: No. Reconstructions: Coronal and sagittal. In accordance with CT protocol optimization, one or more of the following dose reduction techniques were utilized for this exam: automated exposure control, adjustment of mA and/or KV based on patient size, or use of iterative reconstructive technique. FINDINGS: Lung Bases: Unremarkable. Liver: Normal. No masses. Gallbladder/Bile Ducts: Unremarkable. Spleen: Normal. Pancreas: Normal. Adrenal Glands: Normal. Kidneys: Normal. No masses or hydronephrosis. Peritoneal Cavity/Bowel: Nonobstructive bowel gas pattern. Moderate to large volume stool. No free air or free fluid. The appendix is not visualized. No pericecal inflammatory changes. Pelvic Organs: Normal. The bladder and visualized pelvic organs are within normal limits. Vasculature: No aneurysms or other significant abnormality. Mild scattered calcified plaques. Bones: No acute fracture or dislocation visualized. Other: None. IMPRESSION: No acute findings in the abdomen or pelvis. RADIA
--- NOTE | 2018-10-05 14:22 | CT Report ---
Reason: fell down stairs L chest pain Procedure Date: 10/05/2018 Accession Number: [id number] / [id number] Procedure: CT - Chest W/ CPT Code: FULL RESULT: EXAM: CT CHEST EXAM DATE: 10/05/2018 12:59 PM. CLINICAL HISTORY: Fell down stairs L chest pain. COMPARISONS: Chest radiograph 07/19/2009. TECHNIQUE: Routine helical CT imaging was performed through the chest. IV contrast: 100 mL Isovue-300. Reconstructions: Coronal and sagittal. In accordance with CT protocol optimization, one or more of the following dose reduction techniques were utilized for this exam: automated exposure control, adjustment of mA and/or KV based on patient size, or use of iterative reconstructive technique. FINDINGS: Lungs/Pleura: No consolidation, pleural effusion, or pneumothorax. Mild patchy opacities in the lateral lingula likely atelectasis. Mediastinum: Heart size is normal. No pericardial effusion. No mediastinal lymphadenopathy. The thoracic aorta is normal in course and caliber. No evidence of aneurysm or dissection. Bones: No acute fracture or dislocation visualized. Other: None. IMPRESSION: No acute findings in the chest. RADIA
[2018-10-05 15:35] LABS: HCG,QUALITATIVE BLOOD NEGATIVE
[2018-10-05] MEDS ORDERED: IOPAMIDOL-300 100 ML VIAL IVP ONE (18:37)
== END 2018-10-05 15:10 | disposition left against medical advice (07) ==
LOC: EDUNIT# → ED 10:16
DX: F10.10 Alcohol abuse, uncomplicated (principal); R41.82 Altered mental status, unspecified; S00.81XA Abrasion of other part of head, initial encounter; W10.9XXA Fall (on) (from) unspecified stairs and steps, initial encounter; I10 Essential (primary) hypertension; E11.9 Type 2 diabetes mellitus without complications; F17.200 Nicotine dependence, unspecified, uncomplicated; Z79.84 Long term (current) use of oral hypoglycemic drugs; Z53.20 Procedure and treatment not carried out because of patient's decision for unspecified reasons
CPT/HCPCS: 36415; 70450; 71260; 72125; 74177; 80048; 80320; 84703; 85025; 96360; 96361; 99283; 99284; J1815; Q9967

== ENCOUNTER 2018-10-11 00:23 | Outpatient (CLI) | payer OTHER | END 2018-10-11 00:24 | disposition critical access hospital (66) | LOC: EMS 00:23 | PROVIDERS: ATTEND Surgery | DX: R07.81 Pleurodynia (principal) | CPT/HCPCS: A0425; A0429 ==

== ENCOUNTER 2018-10-11 00:43 | Emergency (ER) | payer OTHER ==
--- NOTE | 2018-10-11 02:23 | ED Physician Documentation ---
History of Present Illness - Stated complaint Stated Complaint: SOA - Chief complaint Chief Complaint: Resp - History obtained from History obtained from: Patient - History of Present Illness Timing: How many days ago (3) Pain level now: 7 Improved by: rest Worsened by: movement, palpation - Additonal information Additional information: "I fell down my stairs in my house" (per patient), "three or four days ago". C/O pain across upper abdomen, lower chest; she c/o pain with inspiration Review of Systems Constitutional: denies: Fever, Chills, Sweats Cardiac: reports: Chest pain / pressure (lower chest wall pain) Respiratory: denies: Dyspnea (pain with inspiration, but not dyspneic per se), Cough, Hemoptysis GI: reports: Abdominal Pain. denies: Nausea, Vomiting Musculoskeletal: denies: Neck pain, Back pain, Extremity pain Neurologic: denies: Generalized weakness, Focal weakness, Numbness, Headache, Head injury PD PAST MEDICAL HISTORY - Past Medical History Past Medical History: Yes Cardiovascular: Hypertension, High cholesterol Respiratory: Asthma Endocrine/Autoimmune: Type 2 diabetes GI: GERD CHIEF ENGINEER RESEARCH: None : None HEENT: None Psych: Depression, Anxiety Musculoskeletal: None Derm: Psoriasis - Past Surgical History Past Surgical History: No /CHIEF ENGINEER RESEARCH: section, Dilation and currettage - Present Medications Home Medications: Ambulatory Orders Medication Instructions Recorded Confirmed Lisinopril 40 mg PO DAILY 04/10/13 05/07/18 Simvastatin [Zocor] 40 mg PO HS 04/10/13 05/07/18 Insulin Glargine,Hum.rec.anlog 50 units SQ DAILY PM 11/15/13 05/07/18 [Lantus] Gabapentin 1 mg PO TID 10/28/14 05/07/18 Hydroxyzine HCl 50 mg PO QID PRN 10/28/14 10/28/14 Venlafaxine HCl [Venlafaxine HCl 225 mg PO DAILY 10/28/14 05/07/18 ER] Zolpidem [Ambien] 10 mg PO DAILY 10/28/14 05/07/18 Aspirin [Adult Aspirin Regimen] 1 mg PO DAILY 05/06/18 05/07/18 metFORMIN [Glucophage] 1 mg PO BID 05/06/18 05/07/18 Nitrofurantoin Monohyd/M-Cryst 100 mg PO BID #10 capsule 10/03/18 [Macrobid 100 mg Capsule] Ibuprofen 600 mg PO Q6HR PRN #14 tablet 10/11/18 - Allergies Allergies/Adverse Reactions: Allergies Allergy/AdvReac Type Severity Reaction Status Date / Time tramadol Allergy Unknown Anxiety Verified 10/11/18 00:53 bupropion HCl * AdvReac Unknown Anxiety Verified 10/11/18 00:53 [From Wellbutrin] fluoxetine HCl * AdvReac Unknown Hallucinati Verified 10/11/18 00:53 [From Prozac] ons rosiglitazone AdvReac Unknown Rash Verified 10/11/18 00:53 - Social History Does the pt smoke?: Yes Smoking Status: Current every day smoker Does the pt drink ETOH?: Yes Does the pt have substance abuse?: Yes - Immunizations Immunizations are current?: Yes - POLST Patient has POLST: No PD ED PE NORMAL - Vitals Vital signs reviewed: Yes - General General: Alert and oriented X 3, Well developed/nourished, Other (appears to be uncomfortable at times during HPI/ROS/PE) - HEENT HEENT: Atraumatic, PERRL, EOMI - Neck Neck: No bony TTP - Cardiac Cardiac: RRR, No murmur, No gallop, No rub - Respiratory Respiratory: No respiratory distress, Clear bilaterally - Abdomen Abdomen: Soft, Non distended, Other (tender across upper abdomen, LUQ>epigastrium>RUQ) - Back Back: No spinal TTP - Derm Derm: Other (diffuse hypertrophic, scaly patches c/w severe psoriasis) - Extremities Extremities: Normal ROM s pain - Neuro Neuro: Alert and oriented X 3, respiratory technician 2-12 intact, No motor deficit, No sensory deficit, Normal speech Results - Vitals Vitals: Vital Signs - 24 hr 10/11/18 10/11/18 10/11/18 00:45 02:17 03:01 Temperature 37.0 C Heart Rate 92 80 73 Respiratory 16 18 18 Rate Blood Pressure 145/92 H 115/77 115/83 H O2 Saturation 98 100 100 10/11/18 10/11/18 10/11/18 03:19 03:50 04:12 Temperature Heart Rate 85 81 88 Respiratory 16 16 20 Rate Blood Pressure 114/61 139/73 H 134/77 H O2 Saturation 100 100 100 10/11/18 05:21 Temperature 36.0 C L Heart Rate 90 Respiratory 18 Rate Blood Pressure 127/66 O2 Saturation 99 Oxygen O2 Source Room air - Labs Labs: Laboratory Tests 10/11/18 10/11/18 10/11/18 02:45 02:45 03:32 WBC 5.9 RBC 4.18 L Hgb 12.5 Hct 36.2 L MCV 86.6 MCH 30.0 MCHC 34.6 RDW 13.3 Plt Count 232 MPV 7.7 L Neut # (Auto) 3.2 Lymph # (Auto) 2.0 [place] # (Auto) 0.4 Eos # (Auto) 0.3 Baso # (Auto) 0.1 Absolute Nucleated RBC 0.01 Nucleated RBC % 0.1 Sodium 129 L Potassium 4.0 Chloride 90 L Carbon Dioxide 28 Anion Gap 11.0 BUN 16 Creatinine 1.0 Estimated GFR (MDRD) 58 L Glucose 445 H Calcium 9.1 Total Bilirubin 0.4 AST 48 H ALT 29 Alkaline Phosphatase 96 Total Protein 7.9 Albumin 3.6 Globulin 4.3 H Albumin/Globulin Ratio 0.8 L Lipase 79 H Urine Color YELLOW Urine Clarity CLEAR Urine pH 7.5 Ur Specific [place] 1.010 Urine Protein NEGATIVE Urine Glucose (UA) >=1000 H Urine Ketones NEGATIVE Urine Occult Blood NEGATIVE Urine Nitrite NEGATIVE Urine Bilirubin NEGATIVE Urine Urobilinogen 0.2 (NORMAL) Ur Leukocyte Esterase NEGATIVE Ur Microscopic Review NOT INDICATED Urine Culture Comments NOT INDICATED Urine HCG, Qual NEGATIVE Serum Ketones Cancelled - Rads (name of study) CT A/P with IV contrast Radiology: Prelim report reviewed, See rad report chest xray Radiology: Prelim report reviewed, See rad report PD MEDICAL DECISION MAKING - ED course Complexity details: reviewed old records, reviewed results, re-evaluated patient, considered differential, d/w patient ED course: patient requests pain medication on initial HPI, given 2mg IV morphine. After tests resulted, I discussed the results with her and explained that the results are reassuring, showing no evidence of injury on chest xray and CT A/P. She says she is still having pain and requests more pain medication. given 4mg IV morphine. I asks about what she can take at home for the pain, and I recommended ibuprofen and will write rx for this. She asks about tylenol; specifically if she can take 1 in the morning and 1 in the evening. I told her this would be alright as long as she is no longer drinking alcohol (two previous ED visits this month for alcohol-related problems). She says she has stopped drinking. She then asks if she can take vicodin, 1 in the morning and 1 in the evening. Seeking clarification of what she was asking, I asked if she has this at home and she says she does not and requests this rx. I explained that I do not feel a narcotic/opiate rx is appropriate at this time, given lack of demonstrable injury on the studies performed. Departure - Departure Disposition: 01 Home, Self Care Clinical Impression: Fall down stairs Qualifiers: Encounter type: initial encounter Qualified Code(s): W10.8XXA - Fall (on) (from) other stairs and steps, initial encounter Abdominal contusion Qualifiers: Encounter type: initial encounter Qualified Code(s): S30.1XXA - Contusion of abdominal wall, initial encounter Contusion of chest Qualifiers: Encounter type: initial encounter Laterality: unspecified laterality Qualified Code(s): S20.219A - Contusion of unspecified front wall of thorax, initial encounter Condition: Good Instructions: ED Abdominal Injury Blunt Benign, ED Contusion Chest Wall Prescriptions: Ibuprofen 600 mg PO Q6HR PRN #14 tablet PRN Reason: Pain Discharge Date/Time: 10/11/18 05:44
[2018-10-11] MEDS ORDERED: SODIUM CHLORIDE 0.9% 1,000 ML IV STA (02:44)
[2018-10-11] MEDS ORDERED: INSULIN REGULAR HUMAN 100 UNIT/1 ML 10 ML MDV IVP STA (02:44)
[2018-10-11] MEDS ORDERED: MORPHINE 2 MG/ML CARPUJECT IVP STA ×2 (02:44→05:28)
[2018-10-11 02:55] LABS: BASOPHILS # (AUTO) 0.1 10^3/uL (0.0-0.1); BASOPHILS % (AUTO) 1.3 %; EOSINOPHILS # (AUTO) 0.3 10^3/uL (0.0-0.7); EOSINOPHILS % (AUTO) 4.4 %; HGB - HEMOGLOBIN 12.5 g/dL (12.0-16.0); LYMPHOCYTES % (AUTO) 33.5 %; MEAN CORPUSCULAR HGB CONC 34.6 g/dL (32.0-36.0); MEAN CORPUSCULAR VOLUME 86.6 fL (81.0-99.0); MEAN PLATELET VOLUME 7.7 fL (7.9-10.8); MONOCYTES # (AUTO) 0.4 10^3/uL (0.0-1.0); MONOCYTES % (AUTO) 6.8 %; NEUTROPHILS # (AUTO) 3.2 10^3/uL (1.5-6.6); PLT - PLATELET COUNT 232 10^3/uL (130-450); RED BLOOD COUNT 4.18 10^6/uL (4.20-5.40); RED CELL DISTRIBUTION WIDTH 13.3 % (12.0-15.0); WHITE BLOOD COUNT 5.9 x10^3/uL (4.8-10.8)
[2018-10-11 03:07] LABS: ALBUMIN 3.6 g/dL (3.2-5.5); ALBUMIN/GLOBULIN RATIO 0.8 (1.0-2.2); BILIRUBIN,TOTAL 0.4 mg/dL (0.2-1.0); CALCIUM 9.1 mg/dL (8.5-10.3); TOTAL PROTEIN 7.9 g/dL (6.7-8.2)
[2018-10-11] MEDS ORDERED: IOPAMIDOL-300 100 ML VIAL ONE (03:22)
[2018-10-11] MEDS ORDERED: IOPAMIDOL-300 100 ML VIAL IVP ONE (04:05)
--- NOTE | 2018-10-11 04:14 | CT Report ---
Reason: injury, pain across upper abdomen Procedure Date: 10/11/2018 Accession Number: [id number] / [id number] Procedure: CT - Abdomen/Pelvis W/ CPT Code: FULL RESULT: EXAM: CT ABDOMEN AND PELVIS EXAM DATE: 10/11/2018 03:43 AM. CLINICAL HISTORY: Injury, pain across upper abdomen. COMPARISONS: ABDOMEN/PELVIS W/ 10/05/2018 12:57 PM, CHEST W/ 10/05/2018 12:57 PM. TECHNIQUE: Routine helical CT imaging was performed through the abdomen and pelvis. IV contrast: Yes. Enteric contrast: No. Reconstructions: Coronal and sagittal. In accordance with CT protocol optimization, one or more of the following dose reduction techniques were utilized for this exam: automated exposure control, adjustment of mA and/or KV based on patient size, or use of iterative reconstructive technique. FINDINGS: Lung Bases: Unremarkable. Liver: Fatty. No suspicious masses. Gallbladder/Bile Ducts: Unremarkable. Spleen: Unremarkable. Pancreas: Unremarkable. Adrenal Glands: Unremarkable. Kidneys: Unremarkable. No suspicious masses or hydronephrosis. Peritoneal Cavity/Bowel: No bowel obstruction or inflammatory process seen. No free air or significant free fluid. No masses or adenopathy. The appendix is not seen. Moderate stool burden. Pelvic Organs: Bladder, uterus, and adnexa appear unremarkable with exception of possible urothelial inflammation. Vasculature: No aneurysms or other significant abnormality. Bones: No significant abnormality. Other: None. IMPRESSION: 1. No acute injury seen in the abdomen or pelvis. 2. Moderate stool burden. 3. Fatty liver. 4. Correlation with urinalysis suggested to exclude cystitis. [facility]
--- NOTE | 2018-10-11 04:15 | XRAY Report ---
Reason: fall, low chest pain, dyspnea Procedure Date: 10/11/2018 Accession Number: [id number] / [id number] Procedure: XR - Chest 2 View X-Ray CPT Code: 35835 FULL RESULT: EXAM: CHEST RADIOGRAPHY EXAM DATE: 10/11/2018 03:59 AM. CLINICAL HISTORY: Fall, low chest pain, dyspnea. COMPARISON: XR CHEST PA AND LAT 07/19/2009 2:00 PM ABDOMEN/PELVIS W/ 10/05/2018 12:57 PM CHEST W10/05/2018 12:57 PM. TECHNIQUE: 2 views. FINDINGS: Lungs/Pleura: No focal opacities evident. No pleural effusion. No pneumothorax. Normal volumes. Mediastinum: Heart and mediastinal contours are unremarkable. Other: None. IMPRESSION: Stable negative 2-view chest radiography. RADIA
[2018-10-11 04:19] LABS: BILIRUBIN,URINE NEGATIVE (NEGATIVE); GLUCOSE, URINE (UA) >=1000 mg/dL (NEGATIVE); KETONES,URINE (UA) NEGATIVE (NEGATIVE); LEUKOCYTE ESTERASE, URINE NEGATIVE (NEGATIVE); NITRITE,URINE NEGATIVE (NEGATIVE); OCCULT BLOOD,URINE NEGATIVE (NEGATIVE); PH,URINE 7.5 PH (5.0-7.5); PROTEIN,URINE NEGATIVE (NEGATIVE); UROBILINOGEN,URINE 0.2 (NORMAL) E.U./dL (NORMAL)
[2018-10-11 04:21] LABS: CLARITY,URINE CLEAR (CLEAR); HCG UR QUAL NEGATIVE
[2018-10-11 05:28] VITALS: BP 127/66
== END 2018-10-11 05:44 | disposition home or self-care (01) ==
LOC: EDUNIT# → ED 00:43
DX: S30.1XXA Contusion of abdominal wall, initial encounter (principal); S20.219A Contusion of unspecified front wall of thorax, initial encounter; I10 Essential (primary) hypertension; E11.9 Type 2 diabetes mellitus without complications; Z79.4 Long term (current) use of insulin; Z79.82 Long term (current) use of aspirin; F17.200 Nicotine dependence, unspecified, uncomplicated; W10.9XXA Fall (on) (from) unspecified stairs and steps, initial encounter; Y92.009 Unspecified place in unspecified non-institutional (private) residence as the place of occurrence of the external cause
CPT/HCPCS: 36415; 71046; 74177; 80053; 81003; 81025; 83690; 85025; 96361; 96374; 96376; 99284; 99285; J1815; Q9967; 81001; 82009; 87086

== ENCOUNTER 2019-02-18 08:00 | Outpatient (CLI) | payer OTHER ==
[2019-02-18 20:20] LABS: HB2 TOTAL 15.4 g/dL; HEMOGLOBIN A1C 1.8 g/dL; HEMOGLOBIN A1C % 12.8 % (4.6-6.2)
== END 2019-02-18 23:59 | disposition home or self-care (01) ==
LOC: LAB.N 08:00
PROVIDERS: ATTEND Physician Assistant Medical
DX: E11.65 Type 2 diabetes mellitus with hyperglycemia (principal)
CPT/HCPCS: 36415; 83036

== ENCOUNTER 2019-04-15 00:57 | Outpatient (CLI) | payer OTHER | END 2019-04-15 00:58 | disposition critical access hospital (66) | LOC: EMS 00:57 | PROVIDERS: ATTEND Surgery | DX: R46.89 Other symptoms and signs involving appearance and behavior (principal); M54.9 Dorsalgia, unspecified; R73.09 Other abnormal glucose | CPT/HCPCS: A0425; A0427 ==

== ENCOUNTER 2019-04-15 01:14 | Emergency (ER) | payer OTHER ==
[2019-04-15] MEDS ORDERED: SODIUM CHLORIDE 0.9% 1,000 ML IV ONE (01:26)
[2019-04-15 02:43] VITALS: BP 121/93
== END 2019-04-15 01:39 | disposition left against medical advice (07) ==
LOC: EDUNIT# → ED 01:14
DX: Z53.21 Procedure and treatment not carried out due to patient leaving prior to being seen by health care provider (principal)
CPT/HCPCS: 80053; 80320; 83690; 84484; 85025

== ENCOUNTER 2019-04-15 02:23 | Emergency (ER) | payer OTHER ==
[2019-04-15 02:57] LABS: BILIRUBIN,URINE NEGATIVE (NEGATIVE); GLUCOSE, URINE (UA) >=1000 mg/dL (NEGATIVE); KETONES,URINE (UA) NEGATIVE (NEGATIVE); LEUKOCYTE ESTERASE, URINE NEGATIVE (NEGATIVE); NITRITE,URINE NEGATIVE (NEGATIVE); OCCULT BLOOD,URINE TRACE-LYSE (NEGATIVE); PH,URINE 6.5 PH (5.0-7.5); PROTEIN,URINE NEGATIVE (NEGATIVE); UROBILINOGEN,URINE 0.2 (NORMAL) E.U./dL (NORMAL)
[2019-04-15 02:58] LABS: CLARITY,URINE CLEAR (CLEAR)
[2019-04-15 03:00] LABS: BASOPHILS # (AUTO) 0.1 10^3/uL (0.0-0.1); BASOPHILS % (AUTO) 1.1 %; EOSINOPHILS # (AUTO) 0.2 10^3/uL (0.0-0.7); EOSINOPHILS % (AUTO) 2.9 %; LYMPHOCYTES # (AUTO) 2.5 10^3/uL (1.5-3.5); LYMPHOCYTES % (AUTO) 40.9 %; MEAN CORPUSCULAR HEMOGLOBIN 29.7 pg (27.0-31.0); MEAN CORPUSCULAR HGB CONC 34.1 g/dL (32.0-36.0); MEAN CORPUSCULAR VOLUME 86.9 fL (81.0-99.0); MEAN PLATELET VOLUME 7.9 fL (7.9-10.8); MONOCYTES # (AUTO) 0.4 10^3/uL (0.0-1.0); MONOCYTES % (AUTO) 7.4 %; NEUTROPHILS # (AUTO) 2.9 10^3/uL (1.5-6.6); NEUTROPHILS % (AUTO) 47.7 %; PLT - PLATELET COUNT 191 10^3/uL (130-450); RED CELL DISTRIBUTION WIDTH 13.1 % (12.0-15.0)
[2019-04-15 03:13] LABS: ALBUMIN 3.9 g/dL (3.2-5.5); ALBUMIN/GLOBULIN RATIO 1.1 (1.0-2.2); BILIRUBIN,TOTAL 0.7 mg/dL (0.2-1.0); CALCIUM 8.8 mg/dL (8.5-10.3); CREATININE 0.9 mg/dL (0.4-1.0); TOTAL PROTEIN 7.5 g/dL (6.7-8.2)
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
[2019-04-15] MEDS ORDERED: INSULIN REGULAR HUMAN 100 UNIT in SODIUM CHLORIDE 0.9% 100ML 99 ML IV STA (03:36)
[2019-04-15 04:02] LABS: KETONES, SERUM (ACETEST) NEGATIVE (NEGATIVE)
[2019-04-15 04:05] LABS: VBG PCO2 42.1 mmHg (41-51); VBG PH 7.306 (7.31-7.41); VBG PO2 66.6 mmHg (25-47)
[2019-04-15 04:06] LABS: VBG BASE EXCESS -5.5 mmol/L (-2 - +2); VBG TOTAL CO2 21.8 mmol/L (24-29)
[2019-04-15] MEDS ORDERED: SODIUM CHLORIDE 0.9% 1,000 ML IV ONE ×2 (04:16)
[2019-04-15] MEDS ORDERED: ACETAMINOPHEN/CODEINE 300 MG/30 MG TABLET PO STA (05:11)
[2019-04-15] MEDS ORDERED: POTASSIUM CHLORIDE 20 MEQ TABLET PO STA (05:23)
[2019-04-15 06:29] VITALS: BP 134/83
== END 2019-04-15 06:32 | disposition home or self-care (01) ==
LOC: ED 02:23
DX: F10.129 Alcohol abuse with intoxication, unspecified (principal); E11.65 Type 2 diabetes mellitus with hyperglycemia; Z79.4 Long term (current) use of insulin; T38.3X6A Underdosing of insulin and oral hypoglycemic [antidiabetic] drugs, initial encounter; Z91.128 Patient's intentional underdosing of medication regimen for other reason; E86.0 Dehydration; I10 Essential (primary) hypertension; L40.9 Psoriasis, unspecified; F31.9 Bipolar disorder, unspecified; F17.200 Nicotine dependence, unspecified, uncomplicated; Z79.82 Long term (current) use of aspirin
CPT/HCPCS: 36415; 80053; 80320; 81003; 82009; 82803; 83690; 84484; 85025; 96360; 96361; 99284; A9270; J1815; 81001; 87086

== ENCOUNTER 2019-05-01 13:41 | Outpatient (CLI) | payer OTHER | END 2019-05-01 13:42 | disposition critical access hospital (66) | LOC: EMS 13:41 | PROVIDERS: ATTEND Surgery | DX: R45.851 Suicidal ideations (principal); R73.09 Other abnormal glucose | CPT/HCPCS: A0425; A0427 ==

== ENCOUNTER 2019-05-01 14:02 | Inpatient (IN) | payer OTHER ==
[2019-05-01] MEDS ORDERED: SODIUM CHLORIDE 0.9% 1,000 ML IV ONE ×2 (14:18→22:29)
[2019-05-01] MEDS ORDERED: diphenhydrAMINE INJ 50 MG/ML VIAL IVP STA (14:19)
[2019-05-01] MEDS ORDERED: HALOPERIDOL 5 MG/ML VIAL IVP ONE (14:19)
[2019-05-01] MEDS ORDERED: INSULIN REGULAR HUMAN 100 UNIT/1 ML 10 ML MDV IVP STA (14:20)
--- NOTE | 2019-05-01 14:25 | ED Physician Documentation ---
History of Present Illness - Stated complaint Stated Complaint: ETOH - Chief complaint Chief Complaint: General - History obtained from History obtained from: Patient - History of Present Illness Timing: Unknown (This is a 53-year-old woman with history of diabetes, severe psoriasis, and alcohol abuse who presents by ambulance. For me her chief complaint is an exacerbation of her psoriasis with intolerable itching. For the paramedics her chief complaint was suicidal ideation which she admits to me with unclear time course only stating that it has been going on for "a while." Her diabetes is also uncontrolled with blood sugars that are high. It is unclear she has been taking her insulin. She is intoxicated so history is limited. 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 and currettage - Present Medications Home Medications: Ambulatory Orders Medication Instructions Recorded Confirmed Gabapentin 300 mg PO TID 05/01/19 05/01/19 Halobetasol Propionate 1 applic TOP BID PRN 05/01/19 05/01/19 Insulin Aspart [NovoLOG] 6 units SUBQ TIDWM 05/01/19 05/01/19 Metoprolol Tartrate 25 mg PO BID 05/01/19 05/01/19 Venlafaxine ER [Effexor ER] 75 mg PO DAILY 05/01/19 05/01/19 Zolpidem Tartrate [Zolpidem 12.5 mg PO QPM PRN 05/01/19 05/01/19 Tartrate ER] amLODIPine [Norvasc] 5 mg PO DAILY 05/01/19 05/01/19 hydrOXYzine pamoate [Hydroxyzine 25 mg PO QPM PRN 05/01/19 05/01/19 Pamoate] - Allergies Allergies/Adverse Reactions: Allergies Allergy/AdvReac Type Severity Reaction Status Date / Time tramadol Allergy Unknown Anxiety Verified 05/01/19 14:06 bupropion HCl * AdvReac Unknown Anxiety Verified 05/01/19 14:06 [From Wellbutrin] fluoxetine HCl * AdvReac Unknown Hallucinati Verified 05/01/19 14:06 [From Prozac] ons rosiglitazone AdvReac Unknown Rash Verified 05/01/19 14:06 - Social History Does the pt smoke?: Yes Smoking Status: Current every day smoker Does the pt drink ETOH?: Yes ETOH Use: Liquor Does the pt have substance abuse?: Yes - Immunizations Immunizations are current?: Yes - POLST Patient has POLST: No PD ED PE NORMAL - Vitals Vital signs reviewed: Yes - General General: Other (She is alert and oriented to person and place but not time. She is moaning and somewhat cooperative. She is scratching a lot at her legs where there is severe psoriasis.) - HEENT HEENT: PERRL, Other (Uncooperative with extraocular movements but clearly has nystagmus. There is some ecchymosis around the left eye without facial bony tenderness.) - Neck Neck: Supple, no meningeal sign, No bony TTP - Cardiac Cardiac: RRR, No murmur - Respiratory Respiratory: No respiratory distress, Clear bilaterally - Abdomen Abdomen: Soft, Non tender - Back Back: No CVA TTP, No spinal TTP - Derm Derm: Other (Severe psoriasis) - Neuro Neuro: hand reamer 2-12 intact, No motor deficit, No sensory deficit Eye Opening: Spontaneous Motor: Obeys Commands Verbal: Confused GCS Score: 14 Results - Vitals Vitals: Vital Signs - 24 hr 05/01/19 14:06 Temperature 35.9 C L Heart Rate 116 H Respiratory 18 Rate Blood Pressure 112/81 H O2 Saturation 99 Oxygen O2 Source Room air - EKG (time done) 1447 Rate: Rate (enter#) (112) Rhythm: Sinus tachycardia [place]: Normal Intervals: Normal [place] QRS: Normal Ischemia: Normal ST segments Computer interpretation: Agree with computer - Labs Labs: Laboratory Tests 05/01/19 05/01/19 05/01/19 14:29 14:29 14:29 WBC 5.9 RBC 4.58 Hgb 14.1 Hct 42.2 MCV 92.2 MCH 30.8 MCHC 33.4 RDW 13.9 Plt Count 201 MPV 8.2 Neut # (Auto) 3.3 Lymph # (Auto) 2.1 [place] # (Auto) 0.4 Eos # (Auto) 0.1 Baso # (Auto) 0.1 Absolute Nucleated RBC 0.00 Nucleated RBC % 0.1 VBG pH 7.220 L VBG pCO2 51.4 H VBG pO2 33.5 VBG HCO3 20.6 L VBG Total CO2 22.1 L VBG O2 Saturation 54.9 L VBG Base Excess -7.5 L Sodium 134 L Potassium 3.9 Chloride 95 L Carbon Dioxide 20 L Anion Gap 19.0 H BUN 18 Creatinine 1.1 H Estimated GFR (MDRD) 52 L Glucose 776 H* Calcium 8.6 Total Bilirubin 0.3 AST 28 ALT 18 Alkaline Phosphatase 76 Total Protein 8.0 Albumin 4.0 Globulin 4.0 Albumin/Globulin Ratio 1.0 Lipase 87 H Urine Color Urine Clarity Urine pH Ur Specific Bradley Urine Protein Urine Glucose (UA) Urine Ketones Urine Occult Blood Urine Nitrite Urine Bilirubin Urine Urobilinogen Ur Leukocyte Esterase Ur Microscopic Review Urine Culture Comments Salicylates < 6.0 Urine Opiates Screen Ur Oxycodone Screen Urine Methadone Screen Ur Propoxyphene Screen Acetaminophen < 10 L Ur Barbiturates Screen Ur Tricyclics Screen Ur Phencyclidine Scrn Ur Amphetamine Screen U Methamphetamines Scrn U Benzodiazepines Scrn Urine Cocaine Screen U Cannabinoids Screen Ethyl Alcohol 307.0 Serum Ketones SMALL H 05/01/19 14:42 WBC RBC Hgb Hct MCV MCH MCHC RDW Plt Count MPV Neut # (Auto) Lymph # (Auto) [place] # (Auto) Eos # (Auto) Baso # (Auto) Absolute Nucleated RBC Nucleated RBC % VBG pH VBG pCO2 VBG pO2 VBG HCO3 VBG Total CO2 VBG O2 Saturation VBG Base Excess Sodium Potassium Chloride Carbon Dioxide Anion Gap BUN Creatinine Estimated GFR (MDRD) Glucose Calcium Total Bilirubin AST ALT Alkaline Phosphatase Total Protein Albumin Globulin Albumin/Globulin Ratio Lipase Urine Color YELLOW Urine Clarity CLEAR Urine pH 6.0 Ur Specific Bradley <=1.005 Urine Protein NEGATIVE Urine Glucose (UA) >=1000 H Urine Ketones NEGATIVE Urine Occult Blood NEGATIVE Urine Nitrite NEGATIVE Urine Bilirubin NEGATIVE Urine Urobilinogen 0.2 (NORMAL) Ur Leukocyte Esterase NEGATIVE Ur Microscopic Review NOT INDICATED Urine Culture Comments NOT INDICATED Salicylates Urine Opiates Screen NEGATIVE Ur Oxycodone Screen NEGATIVE Urine Methadone Screen NEGATIVE Ur Propoxyphene Screen NEGATIVE Acetaminophen Ur Barbiturates Screen NEGATIVE Ur Tricyclics Screen NEGATIVE Ur Phencyclidine Scrn NEGATIVE Ur Amphetamine Screen NEGATIVE U Methamphetamines Scrn NEGATIVE U Benzodiazepines Scrn POSITIVE H Urine Cocaine Screen NEGATIVE U Cannabinoids Screen NEGATIVE Ethyl Alcohol Serum Ketones - Rads (name of study) CT Head and Cspine Radiology: EMP read contemporaneously (NAD) PD MEDICAL DECISION MAKING - ED course ED course: 53-year-old woman presents by ambulance for complaints of suicidal ideation and intoxication but also her psoriasis is out of control. It complicated by mild DKA. For which she was administered IV fluids and insulin. Spoke with the hospitalist for admission at 3:05 PM. Departure - Departure Disposition: 66 [facility] DC/Xfer Clinical Impression: Anxiety, Psoriasis, Depressive disorder, Alcohol intoxication DKA, type 1 Qualifiers: Diabetes mellitus complication detail: without coma Qualified Code(s): E10.10 - Type 1 diabetes mellitus with ketoacidosis without coma Condition: Serious
[2019-05-01 14:36] LABS: VBG BASE EXCESS -7.5 mmol/L (-2 - +2); VBG PCO2 51.4 mmHg (41-51); VBG PH 7.22 (7.31-7.41); VBG PO2 33.5 mmHg (25-47); VBG TOTAL CO2 22.1 mmol/L (24-29)
[2019-05-01 14:37] LABS: BASOPHILS # (AUTO) 0.1 10^3/uL (0.0-0.1); BASOPHILS % (AUTO) 1.3 %; EOSINOPHILS # (AUTO) 0.1 10^3/uL (0.0-0.7); EOSINOPHILS % (AUTO) 1.4 %; HGB - HEMOGLOBIN 14.1 g/dL (12.0-16.0); LYMPHOCYTES # (AUTO) 2.1 10^3/uL (1.5-3.5); LYMPHOCYTES % (AUTO) 35.9 %; MEAN CORPUSCULAR HEMOGLOBIN 30.8 pg (27.0-31.0); MEAN CORPUSCULAR HGB CONC 33.4 g/dL (32.0-36.0); MEAN CORPUSCULAR VOLUME 92.2 fL (81.0-99.0); MEAN PLATELET VOLUME 8.2 fL (7.9-10.8); MONOCYTES # (AUTO) 0.4 10^3/uL (0.0-1.0); MONOCYTES % (AUTO) 6.3 %; NEUTROPHILS # (AUTO) 3.3 10^3/uL (1.5-6.6); NEUTROPHILS % (AUTO) 55.1 %; PLT - PLATELET COUNT 201 10^3/uL (130-450); RED BLOOD COUNT 4.58 10^6/uL (4.20-5.40); RED CELL DISTRIBUTION WIDTH 13.9 % (12.0-15.0); WHITE BLOOD COUNT 5.9 x10^3/uL (4.8-10.8)
[2019-05-01 14:46] LABS: KETONES, SERUM (ACETEST) SMALL (NEGATIVE)
[2019-05-01 14:51] LABS: MUDS CUTOFF CONCENTRATIONS CUTOFF CONC BELOW:
[2019-05-01 14:56] LABS: BILIRUBIN,URINE NEGATIVE (NEGATIVE); GLUCOSE, URINE (UA) >=1000 mg/dL (NEGATIVE); KETONES,URINE (UA) NEGATIVE (NEGATIVE); LEUKOCYTE ESTERASE, URINE NEGATIVE (NEGATIVE); NITRITE,URINE NEGATIVE (NEGATIVE); OCCULT BLOOD,URINE NEGATIVE (NEGATIVE); PROTEIN,URINE NEGATIVE (NEGATIVE); UROBILINOGEN,URINE 0.2 (NORMAL) E.U./dL (NORMAL)
[2019-05-01 14:58] LABS: CLARITY,URINE CLEAR (CLEAR)
[2019-05-01 15:02] LABS: ACETAMINOPHEN < 10 ug/mL (10-30); ALKALINE PHOSPHATASE 76 IU/L (42-121); ALT ALANINE AMINOTRANSFERASE 18 IU/L (10-60); AST ASPARTATE AMINOTRANSFERASE 28 IU/L (10-42); BILIRUBIN,TOTAL 0.3 mg/dL (0.2-1.0); BUN - BLOOD UREA NITROGEN 18 mg/dL (6-20); CALCIUM 8.6 mg/dL (8.5-10.3); CARBON DIOXIDE - CO2 20 mmol/L (21-32); CHLORIDE 95 mmol/L (101-111); CREATININE 1.1 mg/dL (0.4-1.0); GFR - MDRD 52 (>89); LIPASE 87 U/L (22-51); SALICYLATE < 6.0 mg/dL; SODIUM 134 mmol/L (135-145)
[2019-05-01 15:04] LABS: GLUCOSE 776 mg/dL (70-100)
[2019-05-01] MEDS ORDERED: NS W/20 MEQ KCL 1,000 ML IV STA (15:04)
[2019-05-01] MEDS ORDERED: INSULIN REGULAR HUMAN 100 UNIT in SODIUM CHLORIDE 0.9% 100ML 99 ML IV STA (15:08)
[2019-05-01 15:09] LABS: AMPHETAMINE SCREEN,URINE NEGATIVE (NEGATIVE); BENZODIAZEPINES SCREEN, URINE POSITIVE (NEGATIVE); COCAINE SCREEN URINE NEGATIVE (NEGATIVE); METHADONE SCREEN, URINE NEGATIVE (NEGATIVE); METHAMPHETAMINES SCREEN, URINE NEGATIVE (NEGATIVE); OPIATE SCREEN, URINE NEGATIVE (NEGATIVE); OXYCODONE SCREEN, URINE NEGATIVE (NEGATIVE); PROPOXYPHENE SCREEN, URINE NEGATIVE (NEGATIVE); TRICYCLIC ANTIDEPRESSANT,URINE NEGATIVE (NEGATIVE)
[2019-05-01] MEDS ORDERED: PROCHLORPERAZINE 10 MG/2 ML VIAL IVP PRN (15:26)
[2019-05-01] MEDS ORDERED: SODIUM CHLORIDE FLUSH 0.9% 10 ML SYRINGE IVP PRN (15:26)
[2019-05-01] MEDS ORDERED: ACETAMINOPHEN 325 MG TABLET PO PRN (15:26)
--- NOTE | 2019-05-01 15:41 | CT Report ---
Reason: head inj, etoh Procedure Date: 05/01/2019 Accession Number: [id number] / [id number] Procedure: CT - CERVICAL SPINE WO CPT Code: FULL RESULT: EXAM: CT HEAD. CT SCAN OF THE CERVICAL SPINE. EXAM DATE: 05/01/2019 03:24 PM. CLINICAL HISTORY: Ethanol intoxication. Head injury. COMPARISON: CERVICAL SPINE W/O 10/05/2018 12:46 PM CERVICAL SPINE W/O 05/01/2019 3:10 PM. TECHNIQUE: Noncontrast axial sections through the head and cervical spine. Reformats: Sagittal and coronal of the head, coronal and sagittal of the cervical spine. In accordance with CT protocol optimization, one or more of the following dose reduction techniques were utilized for this exam: automated exposure control, adjustment of mA and/or KV based on patient size, or use of iterative reconstructive technique. FINDINGS CT HEAD: Parenchyma: No intraparenchymal hemorrhage. No evidence of mass, midline shift, or CT findings of infarction. Bentley-white differentiation is distinct. Extraaxial Spaces: Normal for age. No subdural or epidural collections identified. Ventricles: Normal in size and position. Sinuses and orbits: Imaged paranasal sinuses, orbits, and mastoids show no significant abnormality. Bones: No evidence of fracture or calvarial defect. Stable irregularity above the anterior aspect of C1. Other: None. FINDINGS CT CERVICAL SPINE: Alignment: Normal. No scoliosis or spondylolisthesis. Bones: No fracture or bone lesion. Interspace Levels/Facets: C1-C2: Unremarkable. C2-C3: Unremarkable. C3-C4: Unremarkable. C4-C5: Unremarkable. C5-C6: Unremarkable. C6-C7: Unremarkable. C7-T1: Unremarkable. Spinal Canal: Normal. Musculature: Normal. No fatty atrophy. Other: The paravertebral and prevertebral soft tissues are unremarkable. The lung apices are clear. Prominent bilateral lymph nodes do not meet size criteria, less than 1 cm in short axis. IMPRESSION: Head CT: Negative. Cervical Spine CT: Negative for acute trauma. RADIA
--- NOTE | 2019-05-01 15:41 | CT Report ---
Reason: head inj, etoh Procedure Date: 05/01/2019 Accession Number: [id number] / [id number] Procedure: CT - HEAD WO CPT Code: FULL RESULT: EXAM: CT HEAD. CT SCAN OF THE CERVICAL SPINE. EXAM DATE: 05/01/2019 03:24 PM. CLINICAL HISTORY: Ethanol intoxication. Head injury. COMPARISON: CERVICAL SPINE W/O 10/05/2018 12:46 PM CERVICAL SPINE W/O 05/01/2019 3:10 PM. TECHNIQUE: Noncontrast axial sections through the head and cervical spine. Reformats: Sagittal and coronal of the head, coronal and sagittal of the cervical spine. In accordance with CT protocol optimization, one or more of the following dose reduction techniques were utilized for this exam: automated exposure control, adjustment of mA and/or KV based on patient size, or use of iterative reconstructive technique. FINDINGS CT HEAD: Parenchyma: No intraparenchymal hemorrhage. No evidence of mass, midline shift, or CT findings of infarction. Bentley-white differentiation is distinct. Extraaxial Spaces: Normal for age. No subdural or epidural collections identified. Ventricles: Normal in size and position. Sinuses and orbits: Imaged paranasal sinuses, orbits, and mastoids show no significant abnormality. Bones: No evidence of fracture or calvarial defect. Stable irregularity above the anterior aspect of C1. Other: None. FINDINGS CT CERVICAL SPINE: Alignment: Normal. No scoliosis or spondylolisthesis. Bones: No fracture or bone lesion. Interspace Levels/Facets: C1-C2: Unremarkable. C2-C3: Unremarkable. C3-C4: Unremarkable. C4-C5: Unremarkable. C5-C6: Unremarkable. C6-C7: Unremarkable. C7-T1: Unremarkable. Spinal Canal: Normal. Musculature: Normal. No fatty atrophy. Other: The paravertebral and prevertebral soft tissues are unremarkable. The lung apices are clear. Prominent bilateral lymph nodes do not meet size criteria, less than 1 cm in short axis. IMPRESSION: Head CT: Negative. Cervical Spine CT: Negative for acute trauma. RADIA
[2019-05-01] MEDS ORDERED: SODIUM CHLORIDE 0.9% 1,000 ML IV SCH (16:00)
[2019-05-01] MEDS ORDERED: INSULIN REGULAR HUMAN 100 UNIT in SODIUM CHLORIDE 0.9% 100ML 99 ML IV SCH (16:00)
[2019-05-01 16:14] LABS: BASOPHILS % (AUTO) 0.7 %; EOSINOPHILS # (AUTO) 0.1 10^3/uL (0.0-0.7); EOSINOPHILS % (AUTO) 2.3 %; HGB - HEMOGLOBIN 14.6 g/dL (12.0-16.0); LYMPHOCYTES % (AUTO) 40.7 %; MEAN CORPUSCULAR HEMOGLOBIN 30.1 pg (27.0-31.0); MEAN CORPUSCULAR HGB CONC 33.1 g/dL (32.0-36.0); MEAN CORPUSCULAR VOLUME 90.9 fL (81.0-99.0); MEAN PLATELET VOLUME 8.3 fL (7.9-10.8); MONOCYTES # (AUTO) 0.3 10^3/uL (0.0-1.0); MONOCYTES % (AUTO) 5.8 %; NEUTROPHILS # (AUTO) 2.5 10^3/uL (1.5-6.6); NEUTROPHILS % (AUTO) 50.5 %; PLT - PLATELET COUNT 169 10^3/uL (130-450); RED BLOOD COUNT 4.85 10^6/uL (4.20-5.40); RED CELL DISTRIBUTION WIDTH 14.1 % (12.0-15.0); WHITE BLOOD COUNT 4.9 x10^3/uL (4.8-10.8)
[2019-05-01 16:19] LABS: VBG PH 7.256 (7.31-7.41)
[2019-05-01 16:20] LABS: VBG BASE EXCESS -8.6 mmol/L (-2 - +2); VBG PCO2 41.6 mmHg (41-51); VBG PO2 41.9 mmHg (25-47); VBG TOTAL CO2 19.4 mmol/L (24-29)
[2019-05-01 16:21] LABS: INR 0.9 (0.8-1.2); KETONES, SERUM (ACETEST) NEGATIVE (NEGATIVE); PT - PROTHROMBIN TIME 9.7 secs (9.9-12.6)
[2019-05-01 16:35] LABS: BUN - BLOOD UREA NITROGEN 16 mg/dL (6-20); CARBON DIOXIDE - CO2 18 mmol/L (21-32); CHLORIDE 103 mmol/L (101-111); GFR - MDRD 58 (>89); SODIUM 140 mmol/L (135-145)
[2019-05-01 16:36] LABS: GLUCOSE 502 mg/dL (70-100)
[2019-05-01 16:48] LABS: HCG UR QUAL NEGATIVE
[2019-05-01 17:16] LABS: BUN - BLOOD UREA NITROGEN 15 mg/dL (6-20); CALCIUM 9.1 mg/dL (8.5-10.3); CARBON DIOXIDE - CO2 18 mmol/L (21-32); CHLORIDE 103 mmol/L (101-111); CREATININE 0.8 mg/dL (0.4-1.0); GFR - MDRD 76 (>89); GLUCOSE 385 mg/dL (70-100); SODIUM 140 mmol/L (135-145)
[2019-05-01 17:18] LABS: HB2 TOTAL 16.5 g/dL; HEMOGLOBIN A1C 2.03 g/dL; HEMOGLOBIN A1C % 13.4 % (4.6-6.2)
[2019-05-01] MEDS: TRIAMCINOLONE ACETONIDE 454 APPLIC/454 GM JAR TP PRN (17:29)
[2019-05-01 17:38] LABS: KETONES, SERUM (ACETEST) NEGATIVE (NEGATIVE)
[2019-05-01] MEDS ORDERED: POTASSIUM CHLOR 10 MEQ/100 ML 10 MEQ/100 ML BAG IV ONE ×2 (18:00→19:45)
[2019-05-01 19:01] LABS: BUN - BLOOD UREA NITROGEN 14 mg/dL (6-20); CALCIUM 8.6 mg/dL (8.5-10.3); CARBON DIOXIDE - CO2 20 mmol/L (21-32); CHLORIDE 108 mmol/L (101-111); CREATININE 0.8 mg/dL (0.4-1.0); GFR - MDRD 76 (>89); GLUCOSE 227 mg/dL (70-100); SODIUM 142 mmol/L (135-145)
[2019-05-01 19:02] LABS: KETONES, SERUM (ACETEST) NEGATIVE (NEGATIVE)
--- NOTE | 2019-05-01 19:07 | HISTORY & PHYSICAL EXAMINATION ---
DATE OF SERVICE: 05/01/2019 Physician: Sheila Ryan MD HISTORY OF PRESENT ILLNESS: This is a 53-year-old white female with history of insulin-dependent diabetes, severe psoriasis and alcohol abuse history. She has never been hospitalized here before. The patient presented to the ER because of being very distraught over severe itching related to her psoriasis and "giving up for a while." In the emergency room, she was found to be in DKA and to also have a high blood alcohol level. The patient was not adequately awake to give a detailed history. There is some bruising around the left eye, and she did admit in the ER, to falling a couple of days ago, but cannot give details about this. The paramedics that brought her in said that her chief complaint to them was suicidal ideation and she did admit this to the emergency room doctor, but there was no clear time course or plan stated. She is being admitted to the ICU for DKA management, suicidal watch and potential alcohol withdrawal. PAST MEDICAL HISTORY 1. Hypertension. 2. Hyperlipidemia 3. Asthma. 4. Diabetes on insulin. 5. GERD. 6. Depression. 7. Anxiety. 8. Psoriasis. 9. history. 10. Smoking history. MEDICATIONS AT HOME 1. Gabapentin 300 mg t.i.d. 2. Topical cream of some kind. 3. NovoLog insulin 6 units t.i.d. 4. Metoprolol tartrate 25 b.i.d. 5. Effexor 75 mg daily. 6. Zolpidem p.r.n. 7. Amlodipine 5 mg daily. 8. Hydroxyzine 25 mg q.p.m. p.r.n. ALLERGIES 1. TRAMADOL, WHICH CAUSED ANXIETY. 2. WELLBUTRIN, WHICH CAUSED ANXIETY. 3. PROZAC, WHICH CAUSED HALLUCINATIONS. 4. ROSIGLITAZONE WHICH CAUSED A RASH. SOCIAL HISTORY: The patient is a smoker, drinks alcohol and had a history of substance abuse. There is no POLST that is signed or on record. FAMILY HISTORY: No inherited diseases. REVIEW OF SYSTEMS: This was done from chart review, the pertinent positives are listed, the rest are negative or unknown. PHYSICAL EXAMINATION GENERAL: White female who appears older than her age. She is somnolent and in no apparent distress. VITAL SIGNS: Blood pressure 132/80, heart rate 100-116 in sinus tachycardia, afebrile, room air saturation 97%. HEENT: Shows dry oral mucosa. NECK: Without JVD. LUNGS: Clear. HEART: Tachycardic. ABDOMEN: Soft, nontender. EXTREMITIES: No clubbing, cyanosis or edema. SKIN: Has severe excoriations, diffuse plaquing and redness and areas of hypopigmentation especially of the left arm. NEUROLOGIC: She had nystagmus noted in the ER. She was moving all extremities spontaneously. She awakens briefly to her name but is currently somnolent. LABORATORIES: Admission sodium 134, potassium 3.9, BUN 18, creatinine 1.1, glucose 776, anion gap 19, magnesium 2. Normal liver tests. Lipase 87. CBC entirely normal with a platelet count of 201. INR normal at 0.9. Venous blood gas had a pH of 7.22. Urinalysis had a pH of 6, specific gravity less than 1.005, glucose high, negative leukocyte esterase and negative urine hCG. Toxicology showed positive benzodiazepines and a serum alcohol level of 307. Her serum ketones are small. CHEST X-RAY: No active pulmonary disease. Head CT: No hemorrhage or fracture. EKG: Sinus tachycardia, left atrial and right atrial enlargement, borderline findings for early R/S transition. There is no old EKG available for comparison. IMPRESSION 1. Diabetic ketoacidosis, with probably pseudohyponatremia from her hyperglycemia. 2. Dehydration. 3. Suicidal ideation. 4. Alcohol intoxication. 5. History of alcohol abuse. 6. Tobacco use history. 7. Psoriasis with extensive skin involvement and symptomatic. 8. Hypertension. 9. History of asthma, but no current exacerbation. 10. Anxiety and Depression. 11. History of gastroesophageal reflux disease. PLAN: Admit the patient to the ICU. Start telemetry. Started DKA protocol including insulin drip, frequent fingerstick checks and serum checks of her glucose, ketones, electrolytes and serum pH. Transition to subcutaneous insulin when the ketones have improved and glucose is under 200. N.p.o. diet except ice chips and treat for nausea prn. Begin clear liquids following this. Start a CIWA protocol with Ativan p.r.n. With this high of an alcohol serum level, expect that she would not have withdrawal symptoms at least until tomorrow or as the alcohol level drops. Monitor daily morning alcohol level. Begin a Banana Bag and then daily oral Thiamine and multivitamin. Monitor her electrolytes, magnesium, calcium, phosphorus daily and replace these as needed. Begin a nicotine patch for her tobacco habit. Social work to see her regarding assessment for suicide risk when she is more alert. She will need one-to-one nursing care because of the possibility for continued suicidal ideations. DEEP VENOUS THROMBOSIS PROPHYLAXIS: Pharmacotherapy. CODE STATUS: FULL CODE. ATTESTATION: The patient is expected to be discharged or transferred to another facility within 96 hours: Yes. TD: 05/01/2019 18:41 MTDCorrine
[2019-05-01] MEDS ORDERED: POTASSIUM PHOSPHATE 15 MMOL in SODIUM CHLORIDE 0.9% 250 ML IV ONE (19:44)
[2019-05-01] MEDS ORDERED: DEXTROSE 5% 1,000 ML IV SCH (20:00)
[2019-05-01] MEDS ORDERED: NS W/20 MEQ KCL 1,000 ML IV SCH (20:00)
[2019-05-01] MEDS: SODIUM CHLORIDE FLUSH 0.9% 10 ML SYRINGE IVP SCH (20:02)
[2019-05-01] MEDS ORDERED: SODIUM CHLORIDE 0.9% 250 ML IV ONE (20:11)
[2019-05-01] MEDS: METOPROLOL TARTRATE 25 MG TABLET PO SCH (20:33)
[2019-05-01] MEDS: hydrOXYzine PAMOATE 25 MG CAPSULE PO PRN (20:35)
[2019-05-01] MEDS: FAMOTIDINE 20 MG/2 ML VIAL IVP SCH (20:35)
[2019-05-01] MEDS: GABAPENTIN 300 MG CAPSULE PO SCH (21:39)
[2019-05-01] MEDS: oxyCODONE 5 MG TABLET PO PRN (21:39)
[2019-05-01 21:47] LABS: CALCIUM 7.7 mg/dL (8.5-10.3); CREATININE 0.6 mg/dL (0.4-1.0)
[2019-05-01] MEDS ORDERED: INSULIN REGULAR HUMAN 100 UNIT/1 ML 10 ML MDV SUBQ ONE (22:22)
[2019-05-01] MEDS ORDERED: ZOLPIDEM 5 MG TABLET PO PRN (22:51)
[2019-05-01] MEDS: INSULIN GLARGINE 300 UNIT/3 ML PEN SUBQ SCH (23:13)
[2019-05-01 23:42] LABS: VBG PH 7.26 (7.31-7.41)
[2019-05-01 23:51] LABS: MAGNESIUM 1.6 mg/dL (1.7-2.8); PHOSPHORUS 3.5 mg/dL (2.5-4.6)
[2019-05-02] MEDS: SODIUM CHLORIDE FLUSH 0.9% 10 ML SYRINGE IVP SCH ×4 (00:26→23:33)
[2019-05-02] MEDS: MAGNESIUM OXIDE 400 MG TABLET PO SCH ×2 (00:32→05:39)
[2019-05-02] MEDS: LORazepam 2 MG/ML VIAL IVP PRN ×8 (04:54→22:27)
[2019-05-02] MEDS: GABAPENTIN 300 MG CAPSULE PO SCH ×3 (05:39→21:06)
[2019-05-02 05:51] LABS: BUN - BLOOD UREA NITROGEN 16 mg/dL (6-20); CALCIUM 7.6 mg/dL (8.5-10.3); CARBON DIOXIDE - CO2 24 mmol/L (21-32); CHLORIDE 108 mmol/L (101-111); CREATININE 0.8 mg/dL (0.4-1.0); GFR - MDRD 76 (>89); GLUCOSE 108 mg/dL (70-100); MAGNESIUM 1.8 mg/dL (1.7-2.8); PHOSPHORUS 3.2 mg/dL (2.5-4.6); SODIUM 140 mmol/L (135-145)
[2019-05-02 06:01] LABS: VBG PH 7.285 (7.31-7.41)
[2019-05-02] MEDS: INSULIN ASPART 300 UNIT/3 ML PEN SUBQ SCH ×7 (08:29→20:38)
[2019-05-02] MEDS: FAMOTIDINE 20 MG/2 ML VIAL IVP SCH ×2 (08:31→20:33)
[2019-05-02] MEDS: THIAMINE 100 MG TABLET PO SCH (08:37)
[2019-05-02] MEDS: amLODIPine 5 MG TABLET PO SCH (08:37)
[2019-05-02] MEDS: VENLAFAXINE ER 37.5 MG CAPSULE PO SCH (08:37)
[2019-05-02] MEDS: ENOXAPARIN 40 MG/0.4 ML SYRINGE SUBQ SCH (08:38)
[2019-05-02] MEDS: CALCIUM CITRATE 250 MG TABLET PO SCH ×4 (08:38→20:32)
[2019-05-02] MEDS: METOPROLOL TARTRATE 25 MG TABLET PO SCH ×2 (08:38→20:33)
[2019-05-02] MEDS: PRENATAL VITAMIN TABLET PO SCH (08:41)
[2019-05-02] MEDS ORDERED: MULTIVITAMIN 10 ML, THIAMINE INJ 100 MG, FOLIC ACID INJ 1 MG in SODIUM CHLORIDE 0.9% 1,... IV SCH (09:00)
[2019-05-02] MEDS: INSULIN GLARGINE 300 UNIT/3 ML PEN SUBQ SCH ×2 (09:22→20:39)
--- NOTE | 2019-05-02 10:59 | PROVIDER PROGRESS NOTE ---
Assessment/Plan - Problem List (1) DKA, type 1 Qualifiers: Diabetes mellitus complication detail: without coma Qualified Code(s): E10.10 - Type 1 diabetes mellitus with ketoacidosis without coma Assessment/Plan: The insulin drip improved her glucose, anion gap but pH is still 7.3 today. She was switched over to her usual subq insulin today and diet is being advanced to clear liquids and a full carb controlled diet for lunch. She can be transferred out of the ICU later today[facility]. Nutrition consult ordered to address the poor glucose control with an A1c of 13. She will be transferred out of the ICU today. Probable discharge home tomorrow, after eval by PT. (2) Suicidal ideation Assessment/Plan: She will continue 1:1 care and will be seen by SW today, since the blood alcohol level is not measurable any longer. (3) Alcohol intoxication Assessment/Plan: She was intoxicated on admission yesterday with a REBECCA of . Today it is <5. (4) Alcohol abuse Assessment/Plan: Pt on a CIWA protocol and needed Ativan. She told her RN that she has had 3 detox in the past and that Ativan and Librium both work. Will ask SW to evaluate her today, regarding further detox. She is on iv Banana Bag today, po Thiamine replacement to start today with a mutivitamin. (5) Psoriasis Assessment/Plan: Part of her depression was over the uncontrolled itching of her extensive psoroasis. The Hydroxyzine was continued, but she may need more aggressive mangement. Will start topical creams if appropriate. Will add vit D3 5000 U po daily and Lovaza 1gm po bid, as per recommendation of Fabricating Machine Operator. (6) Depression with anxiety Assessment/Plan: Her home meds were continued - Current Meds Current Meds: Current Medications Generic Name Dose Route Start Last Admin Trade Name Freq PRN Reason Stop Dose Admin Amlodipine Besylate 5 mg 05/02/19 09:00 05/02/19 08:37 Norvasc PO 5 mg DAILY SYEDA Administration Calcium Citrate 500 mg 05/02/19 09:00 05/02/19 08:38 PO 05/02/19 21:01 500 mg QID SYEDA Administration Protocol Enoxaparin Sodium 40 mg 05/02/19 09:00 05/02/19 08:38 Lovenox SUBQ 40 mg DAILY SYEDA Administration Famotidine 20 mg 05/01/19 21:00 05/02/19 08:31 Pepcid IVP 20 mg BID SYEDA Administration Gabapentin 300 mg 05/01/19 22:00 05/02/19 05:39 Neurontin PO 300 mg TID SYEDA Administration Hydroxyzine Pamoate 25 mg 05/01/19 15:44 05/01/19 20:35 Vistaril PO 25 mg QPM PRN Administration ITCHING Multivitamins 10 ml/ Thiamine 1,011.2 mls @ 100 mls/hr 05/02/19 09:00 05/02/19 09:05 HCl 100 mg/ Folic Acid 1 mg/ IV 100 mls/hr Sodium Chloride DAILY SYEDA Administration Insulin Aspart 6 unit 05/02/19 08:00 05/02/19 08:29 Novolog SUBQ 6 unit TIDWM SYEDA Administration Insulin Aspart 1 - 9 unit 05/02/19 08:00 05/02/19 08:29 Novolog SUBQ Not Given 0800,1200,1700,2100 [facility] Protocol Insulin Glargine 27 unit 05/01/19 23:00 05/02/19 09:22 Lantus Solostar SUBQ 27 unit BID SYEDA Administration Lorazepam 1 mg 05/01/19 15:40 05/02/19 09:02 Ativan Inj (Vial) IVP 1 mg Q30M PRN Administration CIWA >8 Protocol Metoprolol Tartrate 25 mg 05/01/19 21:00 05/02/19 08:38 Lopressor PO 25 mg BID SYEDA Administration Oxycodone HCl 5 mg 05/01/19 20:50 05/01/19 21:39 Roxicodone PO 5 mg Q4HR PRN Administration PAIN Multivit/Folic Acid/Iron 1 tab 05/02/19 09:00 05/02/19 08:41 Trinatal Rx 1 PO 1 tab DAILY SYEDA Administration Sodium Chloride 10 ml 05/01/19 17:00 05/02/19 09:12 Normal Saline Flush 0.9% IVP 10 ml 0100,0900,1700 SYEDA Administration Thiamine HCl 100 mg 05/02/19 09:00 05/02/19 08:37 Vitamin B-1 PO 100 mg DAILY SYEDA Administration Triamcinolone Acetonide 1 applic 05/01/19 17:00 05/01/19 17:29 Triamcinolone Acetonide TP 1 applic BID PRN Administration ITCHY AREAS Venlafaxine HCl 75 mg 05/02/19 09:00 05/02/19 08:37 Effexor Er PO 75 mg DAILY SYEDA Administration - Lab Result Fish Bone Diagrams: 05/01/19 16:06 05/02/19 04:30 - Additional Planning My Orders: My Active Orders 05/01/19 15:26 Activity Orders [RC] Q2HR Daily Weight [RC] 0600 IO [RC] Q1HR IV Insert [RC] ONCE Initiate Flu Vaccine Screening [RC] ONCE Initiate ICU Electrolyte Prot. [RC] .protocol Initiate Personal Care Protoco [RC] .protocol Initiate Pneumonia Vaccine Scr [RC] ONCE Vital Signs [RC] Q3HR Nutrition Consult [CONS] Routine Acetaminophen [Tylenol] 650 mg PO Q4HR PRN Prochlorperazine Inj [Compazine Inj] 10 mg IVP Q6HR PRN Sodium Chloride Flush 0.9% [Normal Saline Flush 0.9%] 10 ml IVP PRN PRN Code Status [OTHERS] Routine Condition of Patient [OTHERS] Routine DVT Prophylaxis [OTHERS] Routine 05/01/19 15:29 Telemetry- [RC] Q4HR 05/01/19 15:31 Oral Care - Nursing [RC] Routine 05/01/19 15:32 Oxygen Therapy [RC] .PRN 05/01/19 15:33 Initiate Line Care Protocol [RC] QSHIFT 05/01/19 15:37 Initiate DKA RN Protocol [RC] .protocol Initiate Hypoglycemia Protocol [RC] .protocol Notify Provider - Specific Ins [RC] PRN 05/01/19 15:38 Straight Catheter Insertion [RC] PRN 05/01/19 15:40 CIWA - AR Score Card [RC] Routine Routine Neuro Check [RC] Routine Routine Social Work Consult [CONS] Routine LORazepam INJ [Ativan Inj (Vial)] 1 mg IVP Q30M PRN 05/01/19 15:44 hydrOXYzine PAMOATE [Vistaril] 25 mg PO QPM PRN 05/01/19 16:06 CULTURE, BLOOD (NOTE DRAW #) [RM] Routine 05/01/19 17:00 Sodium Chloride Flush 0.9% [Normal Saline Flush 0.9%] 10 ml IVP 0100,0900,1700 Triamcinolone Acetonide 0.1% [Triamcinolone Acetonide] 1 applic TP BID PRN 05/01/19 18:58 1:1 Observation [RC] once 05/01/19 21:00 Famotidine [Pepcid] 20 mg IVP BID Metoprolol Tartrate [Lopressor] 25 mg PO BID 05/01/19 22:00 Gabapentin [Neurontin] 300 mg PO TID 05/02/19 09:00 Calcium Citrate 500 mg PO QID Enoxaparin [Lovenox] 40 mg SUBQ DAILY Multivitamin [Infuvite] 10 ml Thiamine Inj [Vitamin B-1 Inj] 100 mg Folic Acid Inj 1 mg Sodium Chloride 0.9% [Normal Saline 0.9%] 1,000 ml IV DAILY Vitamin [Trinatal Rx 1] 1 tab PO DAILY Thiamine [Vitamin B-1] 100 mg PO DAILY Venlafaxine ER [Effexor ER] 75 mg PO DAILY amLODIPine [Norvasc] 5 mg PO DAILY 05/02/19 Lunch Carb-controlled Diet [DIET] 05/03/19 05:00 BMP - BASIC METABOLIC PANEL [CHEM] DAILYLAB CBC - COMP BLD CT W/AUTO DIFF [HEME] DAILYLAB MAGNESIUM [CHEM] DAILYLAB Objective Vital Signs: Vital Signs - 24 hr 05/01/19 05/01/19 05/01/19 14:06 17:00 17:32 Temperature 35.9 C L 35.3 C L 35.9 C L Heart Rate 116 H 116 H Heart Rate [ 101 H Monitoring electrodes] Respiratory 18 16 18 Rate Blood Pressure 112/81 H Blood Pressure 132/81 H [Left Brachial artery] O2 Saturation 99 99 97 05/01/19 05/01/19 05/01/19 19:00 20:33 21:00 Temperature Heart Rate Heart Rate [ 97 101 H Monitoring electrodes] Respiratory 14 13 Rate Blood Pressure 158/92 H Blood Pressure 122/83 H 131/85 H [Left Brachial artery] O2 Saturation 100 100 05/01/19 05/02/19 05/02/19 23:00 00:00 01:00 Temperature 36.4 C L Heart Rate Heart Rate [ 83 88 89 Monitoring electrodes] Respiratory 15 14 14 Rate Blood Pressure Blood Pressure 142/69 H 115/80 126/78 [Left Brachial artery] O2 Saturation 99 100 98 06/06/1305/02/19 05/02/19 02:00 03:00 05:00 Temperature 36.2 C L Heart Rate Heart Rate [ 88 94 91 Monitoring electrodes] Respiratory 13 14 16 Rate Blood Pressure Blood Pressure 144/79 H 135/77 H 129/72 [Left Brachial artery] O2 Saturation 97 97 100 05/02/19 05/02/19 05/02/19 07:00 07:47 08:38 Temperature 36.4 C L Heart Rate Heart Rate [ 92 93 Monitoring electrodes] Respiratory 16 19 Rate Blood Pressure 156/84 H Blood Pressure 127/75 128/70 [Left Brachial artery] O2 Saturation 99 100 Oxygen O2 Source Room air I&O (Last 24 Hrs): Intake and Output Totals x24h 04/30/19 05/01/19 05/02/19 23:59 23:59 23:59 Intake Total 3217.409 6715 Output Total 800 400 Balance 2417.409 6315 General: Other (Somnolent) HEENT: Mucous membr. moist/pink Neck: Supple Neuro: Non Focal Cardiovascular: Regular rate Respiratory: No respiratory distress Abdomen: Soft Extremities: Other (Diffuse redness and plaques of psoriasis on all 4 extremities and torso, the neck and head appear not to be involved.) - Results Results: Laboratory Results WBC 4.9 x10^3/uL (4.8-10.8) 05/01/19 16:06 RBC 4.85 10^6/uL (4.20-5.40) 05/01/19 16:06 Hgb 14.6 g/dL (12.0-16.0) 05/01/19 16:06 Hct 44.1 % (37.0-47.0) 05/01/19 16:06 MCV 90.9 fL (81.0-99.0) 05/01/19 16:06 MCH 30.1 pg (27.0-31.0) 05/01/19 16:06 MCHC 33.1 g/dL (32.0-36.0) 05/01/19 16:06 RDW 14.1 % (12.0-15.0) 05/01/19 16:06 Plt Count 169 10^3/uL (130-450) 05/01/19 16:06 MPV 8.3 fL (7.9-10.8) 05/01/19 16:06 Neut # (Auto) 2.5 10^3/uL (1.5-6.6) 05/01/19 16:06 Lymph # (Auto) 2.0 10^3/uL (1.5-3.5) 05/01/19 16:06 [place] # (Auto) 0.3 10^3/uL (0.0-1.0) 05/01/19 16:06 Eos # (Auto) 0.1 10^3/uL (0.0-0.7) 05/01/19 16:06 Baso # (Auto) 0.0 10^3/uL (0.0-0.1) 05/01/19 16:06 Absolute Nucleated RBC 0.01 x10^3/uL 05/01/19 16:06 Nucleated RBC % 0.1 /100WBC 05/01/19 16:06 PT 9.7 secs (9.9-12.6) L 05/01/19 16:06 INR 0.9 (0.8-1.2) 05/01/19 16:06 VBG pH 7.285 (7.31-7.41) L 05/02/19 04:30 VBG pCO2 41.6 mmHg (41-51) 05/01/19 16:06 VBG pO2 41.9 mmHg (25-47) 05/01/19 16:06 VBG HCO3 18.1 mmol/L (23-28) L 05/01/19 16:06 VBG Total CO2 19.4 mmol/L (24-29) L 05/01/19 16:06 VBG O2 Saturation 70.8 % (60-80) 05/01/19 16:06 VBG Base Excess -8.6 mmol/L (-2 - +2) L 05/01/19 16:06 Ionized Calcium 1.06 mmol/L (1.15-1.33) L 05/02/19 04:30 Sodium 140 mmol/L (135-145) 05/02/19 04:30 Potassium 3.7 mmol/L (3.5-5.0) 05/02/19 04:30 Chloride 108 mmol/L (101-111) 05/02/19 04:30 Carbon Dioxide 24 mmol/L (21-32) 05/02/19 04:30 Anion Gap 8.0 (6-13) 05/02/19 04:30 BUN 16 mg/dL (6-20) 05/02/19 04:30 Creatinine 0.8 mg/dL (0.4-1.0) 05/02/19 04:30 Estimated GFR (MDRD) 76 (>89) L 05/02/19 04:30 Glucose 108 mg/dL (70-100) H 05/02/19 04:30 Glycated Hemoglobin 13.4 % (4.6-6.2) H 05/01/19 16:06 Estim Average Glucose 338 (70-100) H 05/01/19 16:06 Calcium 7.6 mg/dL (8.5-10.3) L 05/02/19 04:30 Ionized Calcium YES 05/02/19 04:30 Phosphorus 3.2 mg/dL (2.5-4.6) 05/02/19 04:30 Magnesium 1.8 mg/dL (1.7-2.8) 05/02/19 04:30 Total Bilirubin 0.3 mg/dL (0.2-1.0) 05/01/19 14:29 AST 28 IU/L (10-42) 05/01/19 14:29 ALT 18 IU/L (10-60) 05/01/19 14:29 Alkaline Phosphatase 76 IU/L (42-121) 05/01/19 14:29 Total Protein 8.0 g/dL (6.7-8.2) 05/01/19 14:29 Albumin 4.0 g/dL (3.2-5.5) 05/01/19 14:29 Globulin 4.0 g/dL (2.1-4.2) 05/01/19 14:29 Albumin/Globulin Ratio 1.0 (1.0-2.2) 05/01/19 14:29 Lipase 87 U/L (22-51) H 05/01/19 14:29 Urine Color YELLOW 05/01/19 14:42 Urine Clarity CLEAR (CLEAR) 05/01/19 14:42 Urine pH 6.0 PH (5.0-7.5) 05/01/19 14:42 Ur Specific [place] <=1.005 (1.002-1.030) 05/01/19 15:46 Urine Protein NEGATIVE mg/dL (NEGATIVE) 05/01/19 14:42 Urine Glucose (UA) >=1000 mg/dL (NEGATIVE) H 05/01/19 14:42 Urine Ketones NEGATIVE mg/dL (NEGATIVE) 05/01/19 14:42 Urine Occult Blood NEGATIVE (NEGATIVE) 05/01/19 14:42 Urine Nitrite NEGATIVE (NEGATIVE) 05/01/19 14:42 Urine Bilirubin NEGATIVE (NEGATIVE) 05/01/19 14:42 Urine Urobilinogen 0.2 (NORMAL) E.U./dL (NORMAL) 05/01/19 14:42 Ur Leukocyte Esterase NEGATIVE (NEGATIVE) 05/01/19 14:42 Ur Microscopic Review NOT INDICATED 05/01/19 14:42 Urine Culture Comments NOT INDICATED 05/01/19 14:42 Urine HCG, Qual NEGATIVE 05/01/19 15:46 Nasal Screen MRSA (PCR) NEGATIVE (NEGATIVE) 05/01/19 16:20 Salicylates < 6.0 mg/dL 05/01/19 14:29 Urine Opiates Screen NEGATIVE (NEGATIVE) 05/01/19 14:42 Ur Oxycodone Screen NEGATIVE (NEGATIVE) 05/01/19 14:42 Urine Methadone Screen NEGATIVE (NEGATIVE) 05/01/19 14:42 Ur Propoxyphene Screen NEGATIVE (NEGATIVE) 05/01/19 14:42 Acetaminophen < 10 ug/mL (10-30) L 05/01/19 14:29 Ur Barbiturates Screen NEGATIVE (NEGATIVE) 05/01/19 14:42 Ur Tricyclics Screen NEGATIVE (NEGATIVE) 05/01/19 14:42 Ur Phencyclidine Scrn NEGATIVE (NEGATIVE) 05/01/19 14:42 Ur Amphetamine Screen NEGATIVE (NEGATIVE) 05/01/19 14:42 U Methamphetamines Scrn NEGATIVE (NEGATIVE) 05/01/19 14:42 U Benzodiazepines Scrn POSITIVE (NEGATIVE) H 05/01/19 14:42 Urine Cocaine Screen NEGATIVE (NEGATIVE) 05/01/19 14:42 U Cannabinoids Screen NEGATIVE (NEGATIVE) 05/01/19 14:42 Ethyl Alcohol < 5.0 mg/dL 05/02/19 04:30 Serum Ketones NEGATIVE (NEGATIVE) 05/01/19 21:30 - Procedures Procedures: Procedures INSPECTION OF LOWER INTESTINAL TRACT, ENDO (05/07/18)
[2019-05-02] MEDS: TRIAMCINOLONE ACETONIDE 454 APPLIC/454 GM JAR TP PRN (13:46)
[2019-05-02] MEDS: CHOLECALCIFEROL 5,000 UNIT CAPSULE PO SCH ×2 (14:55→17:00)
[2019-05-02] MEDS ORDERED: SODIUM CHLORIDE 0.9% 500 ML IV PRN (19:26)
[2019-05-02] MEDS: OMEGA-3 ACID ETHYL ESTERS 1 GM CAPSULE PO SCH (20:33)
[2019-05-02] MEDS: oxyCODONE 5 MG TABLET PO PRN (20:46)
[2019-05-02] MEDS: hydrOXYzine PAMOATE 25 MG CAPSULE PO PRN (20:47)
[2019-05-02] MEDS ORDERED: ATORVASTATIN 10 MG TABLET PO SCH (21:00)
[2019-05-02] MEDS: chlordiazePOXIDE 25 MG CAPSULE PO SCH (23:33)
[2019-05-03] MEDS: oxyCODONE 5 MG TABLET PO PRN ×2 (04:25→08:11)
[2019-05-03 05:46] LABS: BASOPHILS % (AUTO) 0.7 %; EOSINOPHILS # (AUTO) 0.2 10^3/uL (0.0-0.7); EOSINOPHILS % (AUTO) 3.7 %; HGB - HEMOGLOBIN 11.4 g/dL (12.0-16.0); LYMPHOCYTES # (AUTO) 1.8 10^3/uL (1.5-3.5); LYMPHOCYTES % (AUTO) 33.1 %; MEAN CORPUSCULAR HEMOGLOBIN 30.2 pg (27.0-31.0); MEAN CORPUSCULAR HGB CONC 34.4 g/dL (32.0-36.0); MEAN CORPUSCULAR VOLUME 87.9 fL (81.0-99.0); MEAN PLATELET VOLUME 8.4 fL (7.9-10.8); MONOCYTES # (AUTO) 0.4 10^3/uL (0.0-1.0); MONOCYTES % (AUTO) 8.1 %; NEUTROPHILS # (AUTO) 2.9 10^3/uL (1.5-6.6); NEUTROPHILS % (AUTO) 54.4 %; PLT - PLATELET COUNT 129 10^3/uL (130-450); RED BLOOD COUNT 3.76 10^6/uL (4.20-5.40); WHITE BLOOD COUNT 5.3 x10^3/uL (4.8-10.8)
[2019-05-03 05:54] LABS: CALCIUM 8.9 mg/dL (8.5-10.3); CREATININE 0.6 mg/dL (0.4-1.0); MAGNESIUM 1.8 mg/dL (1.7-2.8)
[2019-05-03] MEDS: GABAPENTIN 300 MG CAPSULE PO SCH (06:30)
[2019-05-03] MEDS: chlordiazePOXIDE 25 MG CAPSULE PO SCH (06:30)
[2019-05-03] MEDS: VENLAFAXINE ER 37.5 MG CAPSULE PO SCH (08:11)
[2019-05-03] MEDS: SODIUM CHLORIDE FLUSH 0.9% 10 ML SYRINGE IVP SCH (08:11)
[2019-05-03] MEDS: amLODIPine 5 MG TABLET PO SCH (08:11)
[2019-05-03] MEDS: PRENATAL VITAMIN TABLET PO SCH (08:11)
[2019-05-03] MEDS: FAMOTIDINE 20 MG/2 ML VIAL IVP SCH (08:12)
[2019-05-03] MEDS: THIAMINE 100 MG TABLET PO SCH (08:12)
[2019-05-03] MEDS: CHOLECALCIFEROL 5,000 UNIT CAPSULE PO SCH (08:12)
[2019-05-03] MEDS: METOPROLOL TARTRATE 25 MG TABLET PO SCH (08:12)
[2019-05-03] MEDS: ENOXAPARIN 40 MG/0.4 ML SYRINGE SUBQ SCH (08:13)
[2019-05-03] MEDS: INSULIN GLARGINE 300 UNIT/3 ML PEN SUBQ SCH (08:17)
[2019-05-03] MEDS: OMEGA-3 ACID ETHYL ESTERS 1 GM CAPSULE PO SCH (08:17)
[2019-05-03] MEDS: INSULIN ASPART 300 UNIT/3 ML PEN SUBQ SCH ×2 (08:18→08:19)
[2019-05-03 08:22] VITALS: BP 153/85
--- NOTE | 2019-05-03 09:08 | Discharge Plan ---
Discharge Plan Disposition: Home, Self Care Condition: Stable Prescriptions: chlordiazePOXIDE [Librium] 25 mg PO UD #6 capsule Cholecalciferol [Vitamin D3] 5,000 unit PO DAILY #30 capsule [place]-3 Acid Ethyl Esters [Lovaza] 1 gm PO BID #60 capsule Diet: Diabetic Activity Restrictions: Activity as Tolerated Shower Restrictions: No Driving Restrictions: No Instruction Topics: Abuse Alcohol Life After Combat, Addiction Alcohol, DKA Prevent Ch Additional Instructions or Follow Up instructions: You were admitted to the hospital in diabetic ketoacidosis, this is a serious condition. You required stay in the intensive care unit. The blood test called A1c shows that your overall glucose control is poor. You should have closer diabetic management with your PCP or consider coming to the [facility] diabetic clinic here for education and other help. Resume all your prehospital medications. You also have been started on vitamin D3 and omega-3 capsules, which have been shown to help psoriasis. These new prescriptions were electronically sent to your [facility] pharmacy. You should have a bank appraiser treat your psoriasis condition with more aggressive therapy, so that you do not suffer with itching and the mental stress that psoriasis causes. Please refrain from alcohol abuse. Our City Carrier gave you many resources and contacts. You are being sent home with a prescription for Librium to take in a tapering down schedule to help with detox. You should see your PCP in approximately 1 week for hospital follow-up. If you have new or worsening symptoms, call your PCP for advice, or come to the ER. Follow-Up Care: [facility] - Diabetes Ed No Smoking: If you smoke, Please STOP! Call for help.
--- NOTE | 2019-05-03 18:43 | DISCHARGE SUMMARY ---
Discharge Summary Admit Date: 05/01/19 Discharge Date: 05/03/19 Discharging Provider: Sheila Ryan MD Primary Care Provider: MARQUIS Sotelo Code Status: Attempt Resuscitation Condition at Discharge: Stable Discharge Disposition: 01 Home, Self Care - DIAGNOSES Admission Diagnoses: 1) DKA 2) Alcohol intoxication 3) Psoriasis Discharge Diagnoses with Status of Each Condition: 1) DKA, type 1 She was started on an insulin drip which improved her glucose, anion gap and pH. She was switched over to her usual subq insulin and diet advanced. She was transferred out of the ICU. Nutrition consult was ordered to address the poor glucose control with an A1c of 13. Perhaps noncompliance plus her alcohol abuse led to this episode of DKA. At discharge, she had orders to resume her usual doses of insulin and diabetic diet. (2) Suicidal ideation She was on 1:1 care until seen by SW. The patient told the social media marketing analyst that she was "just talking out of her butt" and that she really had no intention or plan to kill herself. Social work advised her to get more counseling and management with medications if needed. She was mostly frustrated about her psoriasis being so symptomatic and reported lack of interest in intimacy with her .. (3) Alcohol intoxication She was intoxicated on admission with a REBECCA of 166. She was mostly somnolent for the first 2 days. On the third day she started to feel "creepy crawly's" and required some Ativan on a CIWA protocol. She was discharged with Librium, 6 tablets to take prn withdrawal. (4) Alcohol abuse She told her RN that she has had 3 detox in the past and that Ativan and Librium both work. SW also gave her contacts regarding alcohol detox. She received iv Banana Bag then po Thiamine and daily multivitamin. She received the Librium doses at discharge, as described above (5) Psoriasis Part of her depression was over the uncontrolled itching with her extensive psoroasis. The Hydroxyzine was continued, but she may need more aggressive management (with lights or tar) with a Waste Machine Operator. We started vitamin D3 5000 U po daily and Lovaza 1gm po bid, as per recommendation of Novelty Chain Maker and this was prescribed at discharge. (6) Depression with anxiety Her home meds were continued (7) HTN She was continued on her home medications while here, had good control of blood pressure. (8) Tobacco abuse She was on a Nicotine patch while here. On the day of discharge, she had gone outside to smoke cigarettes, but came in to be officially discharged. - HPI History of Present Illness: This is a 53-year-old [place]ian female With a history of alcohol abuse, severe psoriasis, insulin-dependent diabetes. Patient has never been hospitalized here before. She presented to the emergency room, called an ambulance because she w as distraught over severe itching and told the paramedics that she was giving up and had suicidal ideations. In the ER she was found to be in DKA with pH of 7.2, anion gap of 19 and glucose of 788. She was somnolent. There was bruising around the left eye and she did say that she had fallen recently. She was admitted to the ICU for management of DKA, alcoholic intoxication and close observation for possible suicidal ideation. - HOSPITAL COURSE Hospital Course: As above - ALLERGIES Allergies/Adverse Reactions: Allergies Allergy/AdvReac Type Severity Reaction Status Date / Time tramadol Allergy Unknown Anxiety Verified 05/01/19 14:06 bupropion HCl * AdvReac Unknown Anxiety Verified 05/01/19 14:06 [From Wellbutrin] fluoxetine HCl * AdvReac Unknown Hallucinati Verified 05/01/19 14:06 [From Prozac] ons rosiglitazone AdvReac Unknown Rash Verified 05/01/19 14:06 - MEDICATIONS Home Medications: Ambulatory Orders Medication Instructions Recorded Confirmed Gabapentin 300 mg PO TID 05/01/19 05/01/19 Halobetasol Propionate 1 applic TOP BID PRN 05/01/19 05/01/19 Insulin Aspart [NovoLOG] 10 units SUBQ TIDWM 05/01/19 05/01/19 Insulin Glargine [Lantus Solostar] 54 units SUBQ DAILY 05/01/19 05/01/19 Lisinopril 40 mg PO DAILY 05/01/19 05/01/19 Metformin HCl 500 mg PO BIDWM 05/01/19 05/01/19 Metoprolol Tartrate 25 mg PO BID 05/01/19 05/01/19 Simvastatin 40 mg PO DAILY 05/01/19 05/01/19 Venlafaxine ER [Effexor ER] 75 mg PO DAILY 05/01/19 05/01/19 Zolpidem Tartrate [Zolpidem 12.5 mg PO QPM PRN 05/01/19 05/01/19 Tartrate ER] amLODIPine [Norvasc] 5 mg PO DAILY 05/01/19 05/01/19 hydrOXYzine pamoate [Hydroxyzine 25 mg PO QPM PRN 05/01/19 05/01/19 Pamoate] Cholecalciferol [Vitamin D3] 5,000 unit PO DAILY #30 capsule 05/03/19 [place]-3 Acid Ethyl Esters [Lovaza] 1 gm PO BID #60 capsule 05/03/19 chlordiazePOXIDE [Librium] 25 mg PO UD #6 capsule 05/03/19 chlordiazePOXIDE [Librium] See Taper PO UD 4 Days #13 capsule 05/04/19 - PHYSICAL EXAM AT DISCHARGE General Appearance: positive: No acute distress Respiratory: positive: No respiratory distress Cardiovascular: positive: Regular rate & rhythm, No murmur Abdomen: positive: No distention Extremities: positive: No pedal edema - LABS Result Diagrams: 05/03/19 05:14 05/03/19 05:14 - DIAGNOSTIC IMAGING Diagnostic Imaging Results: Final report reviewed - FOLLOW UP Follow Up: She was advised to see her PCP for follow-up of her DKA and poorly controlled psoriasis. - TIME SPENT Time Spent in Discharge (Minutes): 60
== END 2019-05-03 10:17 | disposition home or self-care (01) | DRG 638 ==
LOC: EDUNIT# → ED 14:02 → OBSVTOIN 15:26 → INTOOBSV 15:26 → ICU 15:26 → MS2 05-02 22:27
PROVIDERS: ADMIT Internal Medicine; ATTEND Internal Medicine
DX: E10.10 Type 1 diabetes mellitus with ketoacidosis without coma (principal); R45.851 Suicidal ideations; F10.129 Alcohol abuse with intoxication, unspecified; L40.0 Psoriasis vulgaris; S00.12XA Contusion of left eyelid and periocular area, initial encounter; W19.XXXA Unspecified fall, initial encounter; E86.0 Dehydration; F41.8 Other specified anxiety disorders; I10 Essential (primary) hypertension; E78.5 Hyperlipidemia, unspecified; H55.00 Unspecified nystagmus; Y90.6 Blood alcohol level of 120-199 mg/100 ml; F17.210 Nicotine dependence, cigarettes, uncomplicated; Z79.899 Other long term (current) drug therapy; Z87.09 Personal history of other diseases of the respiratory system; Z87.19 Personal history of other diseases of the digestive system
CPT/HCPCS: 36415; 70450; 72125; 80048; 80053; 80306; 80307; 80320; 80329; 81003; 81025; 82009; 82330; 82803; 83036; 83690; 83735; 84100; 85025; 85610; 87040; 87150; 93005; 96374; 99284; 99406; A9270; J1200; J1650; J1815; J2060; J3411; 81001; 82947; 87086

== ENCOUNTER 2019-05-04 03:12 | Emergency (ER) | payer OTHER ==
[2019-05-04 03:27] VITALS: BP 160/93
--- NOTE | 2019-05-04 04:19 | ED Physician Documentation ---
History of Present Illness - Stated complaint Stated Complaint: ETOH WITHDRAWAL - Chief complaint Chief Complaint: MHE - History obtained from History obtained from: Patient - History of Present Illness Timing: Today Improved by: medication (Librium) Worsened by: no apparent exacerbating factors - Additonal information Additional information: d/c from [facility] yesterday. discharge rx included librium 6 tabs total, prescribed for alcohol withdrawal. patient says she was to take 3 tabs the morning of d/c, then the one tablet in the afternoon, evening, and then at night before sleep. she has run out of these medications and feels anxiety and tremulousness as if she is experiencing alcohol w/d symptoms. she says she called her PMD and can be seen tomorrow. she is requesting librium to control symptoms until she can be seen tomorrow she also requests ativan and pain medication. Review of Systems Constitutional: reports: Reviewed and negative Cardiac: reports: Reviewed and negative Respiratory: reports: Reviewed and negative GI: reports: Nausea. denies: Vomiting Psychiatric: reports: Anxiety, Insomnia. denies: Depressed, Suicidal, Hallucinations PD PAST MEDICAL HISTORY - Past Medical History Cardiovascular: Hypertension, High cholesterol Respiratory: Asthma Endocrine/Autoimmune: Type 2 diabetes GI: GERD METALLURGY LABORATORY TECHNICIAN: None : None HEENT: None Psych: Depression, Anxiety, Other Musculoskeletal: None Derm: Psoriasis - Past Surgical History Past Surgical History: No /METALLURGY LABORATORY TECHNICIAN: section, Dilation and currettage - Present Medications Home Medications: Ambulatory Orders Medication Instructions Recorded Confirmed Gabapentin 300 mg PO TID 05/01/19 05/01/19 Halobetasol Propionate 1 applic TOP BID PRN 05/01/19 05/01/19 Insulin Aspart [NovoLOG] 10 units SUBQ TIDWM 05/01/19 05/01/19 Insulin Glargine [Lantus Solostar] 54 units SUBQ DAILY 05/01/19 05/01/19 Lisinopril 40 mg PO DAILY 05/01/19 05/01/19 Metformin HCl 500 mg PO BIDWM 05/01/19 05/01/19 Metoprolol Tartrate 25 mg PO BID 05/01/19 05/01/19 Simvastatin 40 mg PO DAILY 05/01/19 05/01/19 Venlafaxine ER [Effexor ER] 75 mg PO DAILY 05/01/19 05/01/19 Zolpidem Tartrate [Zolpidem 12.5 mg PO QPM PRN 05/01/19 05/01/19 Tartrate ER] amLODIPine [Norvasc] 5 mg PO DAILY 05/01/19 05/01/19 hydrOXYzine pamoate [Hydroxyzine 25 mg PO QPM PRN 05/01/19 05/01/19 Pamoate] Cholecalciferol [Vitamin D3] 5,000 unit PO DAILY #30 capsule 05/03/19 [place]-3 Acid Ethyl Esters [Lovaza] 1 gm PO BID #60 capsule 05/03/19 chlordiazePOXIDE [Librium] 25 mg PO UD #6 capsule 05/03/19 chlordiazePOXIDE [Librium] See Taper PO UD 4 Days #13 capsule 05/04/19 Lorazepam [Ativan] 1 mg PO TID PRN #2 tablet 05/05/19 - Allergies Allergies/Adverse Reactions: Allergies Allergy/AdvReac Type Severity Reaction Status Date / Time tramadol Allergy Unknown Anxiety Verified 05/01/19 14:06 bupropion HCl * AdvReac Unknown Anxiety Verified 05/01/19 14:06 [From Wellbutrin] fluoxetine HCl * AdvReac Unknown Hallucinati Verified 05/01/19 14:06 [From Prozac] ons rosiglitazone AdvReac Unknown Rash Verified 05/01/19 14:06 - Social History Does the pt smoke?: Yes Smoking Status: Current every day smoker Does the pt drink ETOH?: Yes Does the pt have substance abuse?: Yes - Immunizations Immunizations are current?: Yes - POLST Patient has POLST: No PD ED PE NORMAL - Vitals Vital signs reviewed: Yes - General General: Alert and oriented X 3, No acute distress, Well developed/nourished - Neck Neck: Supple, no meningeal sign - Cardiac Cardiac: No murmur - Respiratory Respiratory: No respiratory distress, Clear bilaterally - Neuro Neuro: Alert and oriented X 3 - Psych Psych: Normal mood, Normal affect PD ED PE EXPANDED - Cardiac Cardiac: Tachy, Regular Rhythm Results - Vitals Vitals: Oxygen O2 Source Room air PD MEDICAL DECISION MAKING - ED course Complexity details: reviewed old records, considered differential, d/w patient ED course: appears mildly anxious, paces in room at times but also smiling at times during H+P and no visible tremulousness. she expresses understanding when I explain that I do not feel pain medication nor ativan is appropriate at this time (pain is chronic and can be addressed in outpatient setting, and librium alone (without ativan) should control what appear to be mild symptoms). Patient seems to have misunderstood the directions regarding how to take the librium that was prescribed when discharged. given dose in ED and rx for four-day taper. Departure - Departure Disposition: 01 Home, Self Care Clinical Impression: Alcohol withdrawal Condition: Good Instructions: ED Withdrawal Alcohol Follow-Up: Joel Andujar PA-C [Primary Care Provider] - Prescriptions: chlordiazePOXIDE [Librium] See Taper PO UD 4 Days #13 capsule Discharge Date/Time: 05/04/19 05:28
[2019-05-04] MEDS ORDERED: chlordiazePOXIDE 25 MG CAPSULE PO STA ×2 (04:49→05:10)
== END 2019-05-04 05:28 | disposition home or self-care (01) ==
LOC: ED 03:12
DX: F10.230 Alcohol dependence with withdrawal, uncomplicated (principal); F41.9 Anxiety disorder, unspecified; I10 Essential (primary) hypertension; E11.9 Type 2 diabetes mellitus without complications; Z79.4 Long term (current) use of insulin; F17.200 Nicotine dependence, unspecified, uncomplicated
CPT/HCPCS: 99283; A9270

== ENCOUNTER 2019-05-05 16:31 | Outpatient (CLI) | payer OTHER | END 2019-05-05 16:32 | disposition critical access hospital (66) | LOC: EMS 16:31 | PROVIDERS: ATTEND Surgery | DX: R41.82 Altered mental status, unspecified (principal); R73.09 Other abnormal glucose | CPT/HCPCS: A0425; A0427 ==

== ENCOUNTER 2019-05-05 16:49 | Emergency (ER) | payer OTHER ==
[2019-05-05] MEDS ORDERED: SODIUM CHLORIDE 0.9% 1,000 ML IV ONE ×2 (16:55)
--- NOTE | 2019-05-05 16:58 | ED Physician Documentation ---
PD HPI OVERDOSE - Stated complaint Stated Complaint: ETOH - History obtained from History obtained from: EMS - History of Present Illness Timing - onset: Today (53-year-old woman with bad psoriasis and diabetes presents with alcohol intoxication. Reportedly she was found at home by her having drunk wine. There are also some lithium tablets missing. Blood sugar in route was 440. Patient is moaning and uncooperative, not giving any specific history.) Review of Systems Unable to obtain: Intoxicated, Uncooperative PD PAST MEDICAL HISTORY - Past Medical History Cardiovascular: Hypertension, High cholesterol Respiratory: Asthma Endocrine/Autoimmune: Type 2 diabetes GI: GERD SKATING CARHOP: None : None HEENT: None Psych: Depression, Anxiety, Other Musculoskeletal: None Derm: Psoriasis - Past Surgical History Past Surgical History: No /SKATING CARHOP: section, Dilation and currettage - Present Medications Home Medications: Ambulatory Orders Medication Instructions Recorded Confirmed Gabapentin 300 mg PO TID 05/01/19 05/01/19 Halobetasol Propionate 1 applic TOP BID PRN 05/01/19 05/01/19 Insulin Aspart [NovoLOG] 10 units SUBQ TIDWM 05/01/19 05/01/19 Insulin Glargine [Lantus Solostar] 54 units SUBQ DAILY 05/01/19 05/01/19 Lisinopril 40 mg PO DAILY 05/01/19 05/01/19 Metformin HCl 500 mg PO BIDWM 05/01/19 05/01/19 Metoprolol Tartrate 25 mg PO BID 05/01/19 05/01/19 Simvastatin 40 mg PO DAILY 05/01/19 05/01/19 Venlafaxine ER [Effexor ER] 75 mg PO DAILY 05/01/19 05/01/19 Zolpidem Tartrate [Zolpidem 12.5 mg PO QPM PRN 05/01/19 05/01/19 Tartrate ER] amLODIPine [Norvasc] 5 mg PO DAILY 05/01/19 05/01/19 hydrOXYzine pamoate [Hydroxyzine 25 mg PO QPM PRN 05/01/19 05/01/19 Pamoate] Cholecalciferol [Vitamin D3] 5,000 unit PO DAILY #30 capsule 05/03/19 [place]-3 Acid Ethyl Esters [Lovaza] 1 gm PO BID #60 capsule 05/03/19 chlordiazePOXIDE [Librium] 25 mg PO UD #6 capsule 05/03/19 chlordiazePOXIDE [Librium] See Taper PO UD 4 Days #13 capsule 05/04/19 Lorazepam [Ativan] 1 mg PO TID PRN #2 tablet 05/05/19 - Allergies Allergies/Adverse Reactions: Allergies Allergy/AdvReac Type Severity Reaction Status Date / Time tramadol Allergy Unknown Anxiety Verified 05/01/19 14:06 bupropion HCl * AdvReac Unknown Anxiety Verified 05/01/19 14:06 [From Wellbutrin] fluoxetine HCl * AdvReac Unknown Hallucinati Verified 05/01/19 14:06 [From Prozac] ons rosiglitazone AdvReac Unknown Rash Verified 05/01/19 14:06 - Social History Does the pt smoke?: Yes Smoking Status: Current every day smoker Does the pt drink ETOH?: Yes Does the pt have substance abuse?: Yes - Immunizations Immunizations are current?: Yes - POLST Patient has POLST: No PD ED PE NORMAL - Vitals Vital signs reviewed: Yes - General General: Other (She is alert and looks at me, she is moaning and uncooperative) - HEENT HEENT: PERRL, EOMI - Neck Neck: Supple, no meningeal sign, No bony TTP - Cardiac Cardiac: RRR, No murmur - Respiratory Respiratory: No respiratory distress, Clear bilaterally - Abdomen Abdomen: Soft, Non tender - Back Back: No CVA TTP, No spinal TTP - Derm Derm: Normal color, Warm and dry, Other (bad psoriasis) - Neuro Neuro: No motor deficit, No sensory deficit Eye Opening: Spontaneous Motor: Obeys Commands Verbal: Inappropriate GCS Score: 13 Results - Vitals Vitals: Vital Signs - 24 hr 05/05/19 05/05/19 05/05/19 16:52 17:24 17:34 Temperature 35.7 C L Heart Rate 94 101 H 97 Respiratory 21 16 24 Rate Blood Pressure 96/60 124/101 H 88/61 L O2 Saturation 100 100 100 05/05/19 05/05/19 05/05/19 18:00 18:30 19:00 Temperature Heart Rate 112 H 94 98 Respiratory 16 19 19 Rate Blood Pressure 109/95 H 100/61 87/59 L O2 Saturation 99 97 95 06/10/19 06/10/19 06/10/19 19:30 20:00 21:07 Temperature Heart Rate 92 95 98 Respiratory 19 21 20 Rate Blood Pressure 87/64 L 87/57 L 92/59 L O2 Saturation 100 99 100 05/05/19 21:46 Temperature Heart Rate 95 Respiratory 20 Rate Blood Pressure 102/53 L O2 Saturation 100 Oxygen O2 Source Nasal cannula - EKG (time done) 1710 Rate: Rate (enter#) (99) Rhythm: NSR [place]: Normal Intervals: Normal PA, Prolonged QT QRS: Normal Computer interpretation: Agree with computer - Labs Labs: Laboratory Tests 05/05/19 05/05/19 05/05/19 17:06 17:06 17:06 WBC 4.6 L RBC 4.24 Hgb 12.8 Hct 38.3 MCV 90.3 MCH 30.2 MCHC 33.4 RDW 13.9 Plt Count 164 MPV 8.1 Neut # (Auto) 2.5 Lymph # (Auto) 1.5 [place] # (Auto) 0.4 Eos # (Auto) 0.2 Baso # (Auto) 0.1 Absolute Nucleated RBC 0.00 Nucleated RBC % 0.0 VBG pH 7.307 L VBG pCO2 52.3 H VBG pO2 30.9 VBG HCO3 25.6 VBG Total CO2 27.2 VBG O2 Saturation 54.7 L VBG Base Excess -1.4 Sodium 136 Potassium 3.8 Chloride 97 L Carbon Dioxide 24 Anion Gap 15.0 H BUN 17 Creatinine 1.3 H Estimated GFR (MDRD) 43 L Glucose 431 H Calcium 8.7 Phosphorus 3.6 Magnesium 2.3 Total Bilirubin 0.4 AST 28 ALT 19 Alkaline Phosphatase 58 Total Protein 6.9 Albumin 3.4 Globulin 3.5 Albumin/Globulin Ratio 1.0 Lipase 53 H Urine Color Urine Clarity Urine pH Ur Specific [place] Urine Protein Urine Glucose (UA) Urine Ketones Urine Occult Blood Urine Nitrite Urine Bilirubin Urine Urobilinogen Ur Leukocyte Esterase Ur Microscopic Review Urine Culture Comments Last Dose Date Last Dose Time Salicylates < 6.0 Urine Opiates Screen Ur Oxycodone Screen Urine Methadone Screen Ur Propoxyphene Screen Acetaminophen < 10 L Ur Barbiturates Screen Ur Tricyclics Screen Ur Phencyclidine Scrn Ur Amphetamine Screen U Methamphetamines Scrn U Benzodiazepines Scrn Remy Urine Cocaine Screen U Cannabinoids Screen Ethyl Alcohol 228.7 Serum Ketones NEGATIVE 05/05/19 05/05/19 17:06 17:20 WBC RBC Hgb Hct MCV MCH MCHC RDW Plt Count MPV Neut # (Auto) Lymph # (Auto) [place] # (Auto) Eos # (Auto) Baso # (Auto) Absolute Nucleated RBC Nucleated RBC % VBG pH VBG pCO2 VBG pO2 VBG HCO3 VBG Total CO2 VBG O2 Saturation VBG Base Excess Sodium Potassium Chloride Carbon Dioxide Anion Gap BUN Creatinine Estimated GFR (MDRD) Glucose Calcium Phosphorus Magnesium Total Bilirubin AST ALT Alkaline Phosphatase Total Protein Albumin Globulin Albumin/Globulin Ratio Lipase Urine Color YELLOW Urine Clarity CLEAR Urine pH 6.5 Ur Specific [place] <=1.005 Urine Protein NEGATIVE Urine Glucose (UA) >=1000 H Urine Ketones NEGATIVE Urine Occult Blood NEGATIVE Urine Nitrite NEGATIVE Urine Bilirubin NEGATIVE Urine Urobilinogen 0.2 (NORMAL) Ur Leukocyte Esterase NEGATIVE Ur Microscopic Review NOT INDICATED Urine Culture Comments NOT INDICATED Last Dose Date UNKNOWN Last Dose Time UNKNOWN Salicylates Urine Opiates Screen NEGATIVE Ur Oxycodone Screen NEGATIVE Urine Methadone Screen NEGATIVE Ur Propoxyphene Screen NEGATIVE Acetaminophen Ur Barbiturates Screen NEGATIVE Ur Tricyclics Screen NEGATIVE Ur Phencyclidine Scrn NEGATIVE Ur Amphetamine Screen NEGATIVE U Methamphetamines Scrn NEGATIVE U Benzodiazepines Scrn POSITIVE H Remy < 0.05 Urine Cocaine Screen NEGATIVE U Cannabinoids Screen NEGATIVE Ethyl Alcohol Serum Ketones PD MEDICAL DECISION MAKING - ED course ED course: This is a 53-year-old woman with psoriasis, uncontrolled diabetes and history of alcohol and substance use who presents intoxicated with alcohol. She also had uncontrolled blood sugars which were actually relatively easy to control with her usual dose of Lantus and a single dose of IV insulin. On initial arrival she was uncooperative and clearly intoxicated. The nurse spoke with her who would like her to stay overnight for nursing home social worker evaluation which is not unreasonable. On reevaluation at 10 PM she was clinically sober. This was about almost 6 hours into her emergency department stay. She wanted to be di scharged. I recommended that she stay overnight for nursing home social worker evaluation but she declined. I have no basis on which to hold her against her will and she is discharged. She is somewhat pushy about prescriptions of benzodiazepines. She has a history of benzodiazepine abuse. As such we gave her 1 dose here prior to discharge and I will write her prescription for 2 Ativan. Departure - Departure Disposition: 01 Home, Self Care Clinical Impression: Alcohol intoxication Diabetes mellitus out of control Qualifiers: Diabetes mellitus type: type 2 Glycemic state: with hyperglycemia Qualified Code(s): E11.65 - Type 2 diabetes mellitus with hyperglycemia Condition: Good Record reviewed to determine appropriate education?: Yes Instructions: ED Alcohol Intoxication Prescriptions: Lorazepam [Ativan] 1 mg PO TID PRN #2 tablet PRN Reason: Anxiety Comments: Follow-up with your physician tomorrow as scheduled. Do not drink alcohol. Return for new or worsening symptoms.
[2019-05-05 17:12] LABS: BASOPHILS # (AUTO) 0.1 10^3/uL (0.0-0.1); BASOPHILS % (AUTO) 1.2 %; EOSINOPHILS # (AUTO) 0.2 10^3/uL (0.0-0.7); EOSINOPHILS % (AUTO) 4.6 %; HGB - HEMOGLOBIN 12.8 g/dL (12.0-16.0); LYMPHOCYTES # (AUTO) 1.5 10^3/uL (1.5-3.5); LYMPHOCYTES % (AUTO) 33.3 %; MEAN CORPUSCULAR HEMOGLOBIN 30.2 pg (27.0-31.0); MEAN CORPUSCULAR HGB CONC 33.4 g/dL (32.0-36.0); MEAN CORPUSCULAR VOLUME 90.3 fL (81.0-99.0); MEAN PLATELET VOLUME 8.1 fL (7.9-10.8); MONOCYTES # (AUTO) 0.4 10^3/uL (0.0-1.0); MONOCYTES % (AUTO) 7.8 %; NEUTROPHILS # (AUTO) 2.5 10^3/uL (1.5-6.6); NEUTROPHILS % (AUTO) 53.1 %; PLT - PLATELET COUNT 164 10^3/uL (130-450); RED BLOOD COUNT 4.24 10^6/uL (4.20-5.40); RED CELL DISTRIBUTION WIDTH 13.9 % (12.0-15.0); WHITE BLOOD COUNT 4.6 x10^3/uL (4.8-10.8)
[2019-05-05 17:27] LABS: ACETAMINOPHEN < 10 ug/mL (10-30); ALBUMIN 3.4 g/dL (3.2-5.5); ALKALINE PHOSPHATASE 58 IU/L (42-121); ALT ALANINE AMINOTRANSFERASE 19 IU/L (10-60); AST ASPARTATE AMINOTRANSFERASE 28 IU/L (10-42); BILIRUBIN,TOTAL 0.4 mg/dL (0.2-1.0); BUN - BLOOD UREA NITROGEN 17 mg/dL (6-20); CALCIUM 8.7 mg/dL (8.5-10.3); CARBON DIOXIDE - CO2 24 mmol/L (21-32); CHLORIDE 97 mmol/L (101-111); CREATININE 1.3 mg/dL (0.4-1.0); GFR - MDRD 43 (>89); GLUCOSE 431 mg/dL (70-100); LIPASE 53 U/L (22-51); MAGNESIUM 2.3 mg/dL (1.7-2.8); PHOSPHORUS 3.6 mg/dL (2.5-4.6); SALICYLATE < 6.0 mg/dL; SODIUM 136 mmol/L (135-145); TOTAL PROTEIN 6.9 g/dL (6.7-8.2)
[2019-05-05 17:36] LABS: MUDS CUTOFF CONCENTRATIONS CUTOFF CONC BELOW:
[2019-05-05 17:38] LABS: VBG PCO2 52.3 mmHg (41-51); VBG PH 7.307 (7.31-7.41); VBG PO2 30.9 mmHg (25-47)
[2019-05-05 17:39] LABS: VBG BASE EXCESS -1.4 mmol/L (-2 - +2); VBG TOTAL CO2 27.2 mmol/L (24-29)
[2019-05-05] MEDS ORDERED: INSULIN GLARGINE 300 UNIT/3 ML PEN SUBQ STA (17:40)
[2019-05-05] MEDS ORDERED: INSULIN REGULAR HUMAN 100 UNIT/1 ML 10 ML MDV IVP STA (17:40)
[2019-05-05 17:41] LABS: BILIRUBIN,URINE NEGATIVE (NEGATIVE); GLUCOSE, URINE (UA) >=1000 mg/dL (NEGATIVE); KETONES,URINE (UA) NEGATIVE (NEGATIVE); LEUKOCYTE ESTERASE, URINE NEGATIVE (NEGATIVE); NITRITE,URINE NEGATIVE (NEGATIVE); OCCULT BLOOD,URINE NEGATIVE (NEGATIVE); PH,URINE 6.5 PH (5.0-7.5); PROTEIN,URINE NEGATIVE (NEGATIVE); UROBILINOGEN,URINE 0.2 (NORMAL) E.U./dL (NORMAL)
[2019-05-05 17:45] LABS: KETONES, SERUM (ACETEST) NEGATIVE (NEGATIVE)
[2019-05-05 17:48] LABS: CLARITY,URINE CLEAR (CLEAR)
[2019-05-05 17:54] LABS: LITHIUM < 0.05 mmol/L
[2019-05-05 17:56] LABS: AMPHETAMINE SCREEN,URINE NEGATIVE (NEGATIVE); BENZODIAZEPINES SCREEN, URINE POSITIVE (NEGATIVE); COCAINE SCREEN URINE NEGATIVE (NEGATIVE); METHADONE SCREEN, URINE NEGATIVE (NEGATIVE); METHAMPHETAMINES SCREEN, URINE NEGATIVE (NEGATIVE); OPIATE SCREEN, URINE NEGATIVE (NEGATIVE); OXYCODONE SCREEN, URINE NEGATIVE (NEGATIVE); PROPOXYPHENE SCREEN, URINE NEGATIVE (NEGATIVE); TRICYCLIC ANTIDEPRESSANT,URINE NEGATIVE (NEGATIVE)
[2019-05-05] MEDS ORDERED: LORazepam 2 MG/ML VIAL IVP STA (18:03)
[2019-05-05] MEDS ORDERED: THIAMINE INJ 100 MG in SODIUM CHLORIDE 0.9% 50 ML IV STA (18:03)
[2019-05-05] MEDS ORDERED: LORazepam 1 MG TABLET PO STA (22:09)
[2019-05-05 23:02] VITALS: BP 127/81
== END 2019-05-05 23:03 | disposition home or self-care (01) ==
LOC: EDUNIT# → ED 16:49
DX: F10.120 Alcohol abuse with intoxication, uncomplicated (principal); E11.65 Type 2 diabetes mellitus with hyperglycemia; Z79.4 Long term (current) use of insulin; L40.9 Psoriasis, unspecified; I45.81 Long QT syndrome; I10 Essential (primary) hypertension; F41.9 Anxiety disorder, unspecified; F17.200 Nicotine dependence, unspecified, uncomplicated
CPT/HCPCS: 80053; 80178; 80320; 80329; 81003; 82009; 82803; 83690; 83735; 84100; 85025; 93005; 96361; 96365; 96366; 96375; 99284; 99285; J1815; J2060; J3411; J7040; J8499; 80306; 80307; 81001; 87086

== ENCOUNTER 2019-05-09 09:50 | Outpatient (CLI) | payer OTHER | END 2019-05-09 09:51 | disposition critical access hospital (66) | LOC: EMS 09:50 | PROVIDERS: ATTEND Surgery | DX: R45.89 Other symptoms and signs involving emotional state (principal); R11.0 Nausea; R06.00 Dyspnea, unspecified; R47.81 Slurred speech | CPT/HCPCS: A0425; A0427 ==

== ENCOUNTER 2019-05-09 10:10 | Emergency (ER) | payer OTHER ==
[2019-05-09 11:20] LABS: EOSINOPHILS # (AUTO) 0.2 10^3/uL (0.0-0.7); EOSINOPHILS % (AUTO) 4.1 %; HGB - HEMOGLOBIN 12.9 g/dL (12.0-16.0); LYMPHOCYTES # (AUTO) 1.6 10^3/uL (1.5-3.5); LYMPHOCYTES % (AUTO) 33.1 %; MEAN CORPUSCULAR HEMOGLOBIN 30.1 pg (27.0-31.0); MEAN CORPUSCULAR HGB CONC 33.1 g/dL (32.0-36.0); MEAN PLATELET VOLUME 8.4 fL (7.9-10.8); MONOCYTES # (AUTO) 0.3 10^3/uL (0.0-1.0); NEUTROPHILS # (AUTO) 2.7 10^3/uL (1.5-6.6); NEUTROPHILS % (AUTO) 55.8 %; PLT - PLATELET COUNT 205 10^3/uL (130-450); RED BLOOD COUNT 4.27 10^6/uL (4.20-5.40); RED CELL DISTRIBUTION WIDTH 14.3 % (12.0-15.0); WHITE BLOOD COUNT 4.9 x10^3/uL (4.8-10.8)
[2019-05-09 11:29] LABS: ALBUMIN 3.7 g/dL (3.2-5.5); ALBUMIN/GLOBULIN RATIO 0.9 (1.0-2.2); BILIRUBIN,TOTAL 0.3 mg/dL (0.2-1.0); CALCIUM 9.8 mg/dL (8.5-10.3); CREATININE 1.2 mg/dL (0.4-1.0); TOTAL PROTEIN 7.8 g/dL (6.7-8.2)
--- NOTE | 2019-05-09 12:29 | ED Physician Documentation ---
History of Present Illness - Stated complaint Stated Complaint: AMS/SOB/ANXIETY - Chief complaint Chief Complaint: General - History obtained from History obtained from: Patient, EMS - History of Present Illness Timing: Today Pain level max: 0 Pain level now: 0 Improved by: nothing Worsened by: nothing - Additonal information Additional information: 53-year-old female brought in by EMS for acute alcohol intoxication. She states that she normally drinks a pint of vodka in the morning. Drank her usual amount today. She has been to rehab 3 or 4 times in the past. No history of seizures. No history of hallucinations. Does not want to go to rehab today. She is not suicidal or homicidal. She is diabetic, her blood sugar was 415 with EMS. No fevers. No head injury. No fall. 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 : None HEENT: None Psych: Depression, Anxiety, Other Musculoskeletal: None Derm: Psoriasis - Past Surgical History Past Surgical History: No /ENTERTAINMENT PRODUCTION PROFESSIONAL: section, Dilation and currettage - Present Medications Home Medications: Ambulatory Orders Medication Instructions Recorded Confirmed Gabapentin 300 mg PO TID 05/01/19 05/01/19 Halobetasol Propionate 1 applic TOP BID PRN 05/01/19 05/01/19 Insulin Aspart [NovoLOG] 10 units SUBQ TIDWM 05/01/19 05/01/19 Insulin Glargine [Lantus Solostar] 54 units SUBQ DAILY 05/01/19 05/01/19 Lisinopril 40 mg PO DAILY 05/01/19 05/01/19 Metformin HCl 500 mg PO BIDWM 05/01/19 05/01/19 Metoprolol Tartrate 25 mg PO BID 05/01/19 05/01/19 Simvastatin 40 mg PO DAILY 05/01/19 05/01/19 Venlafaxine ER [Effexor ER] 75 mg PO DAILY 05/01/19 05/01/19 Zolpidem Tartrate [Zolpidem 12.5 mg PO QPM PRN 05/01/19 05/01/19 Tartrate ER] amLODIPine [Norvasc] 5 mg PO DAILY 05/01/19 05/01/19 hydrOXYzine pamoate [Hydroxyzine 25 mg PO QPM PRN 05/01/19 05/01/19 Pamoate] Cholecalciferol [Vitamin D3] 5,000 unit PO DAILY #30 capsule 05/03/19 [place]-3 Acid Ethyl Esters [Lovaza] 1 gm PO BID #60 capsule 05/03/19 chlordiazePOXIDE [Librium] 25 mg PO UD #6 capsule 05/03/19 chlordiazePOXIDE [Librium] See Taper PO UD 4 Days #13 capsule 05/04/19 Lorazepam [Ativan] 1 mg PO TID PRN #2 tablet 05/05/19 - Allergies Allergies/Adverse Reactions: Allergies Allergy/AdvReac Type Severity Reaction Status Date / Time tramadol Allergy Unknown Anxiety Verified 05/01/19 14:06 bupropion HCl * AdvReac Unknown Anxiety Verified 05/01/19 14:06 [From Wellbutrin] fluoxetine HCl * AdvReac Unknown Hallucinati Verified 05/01/19 14:06 [From Prozac] ons rosiglitazone AdvReac Unknown Rash Verified 05/01/19 14:06 - Social History Does the pt smoke?: Yes Smoking Status: Current every day smoker Does the pt drink ETOH?: Yes Does the pt have substance abuse?: Yes Substance Use and Type: Prescription Pills - Immunizations Immunizations are current?: Yes - POLST Patient has POLST: No PD ED PE NORMAL - Vitals Vital signs reviewed: Yes - General General: Alert and oriented X 3, No acute distress - HEENT HEENT: Moist mucous membranes - Neck Neck: Supple, no meningeal sign - Cardiac Cardiac: RRR - Respiratory Respiratory: No respiratory distress, Clear bilaterally - Abdomen Abdomen: Soft, Non tender, Non distended - Back Back: No CVA TTP, No spinal TTP - Derm Derm: Warm and dry, Other (diffuse psoriasis) - Extremities Extremities: No calf tenderness / cord - Neuro Neuro: Alert and oriented X 3 - Psych Psych: Normal mood, Normal affect Results - Vitals Vitals: Vital Signs - 24 hr 05/09/19 05/09/19 05/09/19 10:10 11:00 14:13 Temperature 36.1 C L Heart Rate 98 93 94 Respiratory 18 20 14 Rate Blood Pressure 125/80 103/62 123/91 H O2 Saturation 99 96 100 05/09/19 14:21 Temperature Heart Rate 110 H Respiratory 16 Rate Blood Pressure 123/91 H O2 Saturation 100 Oxygen O2 Source Room air - EKG (time done) 1023 Rate: Rate (enter#) (99) Rhythm: NSR [place]: Normal Intervals: Normal [place], Prolonged QT QRS: Normal Ischemia: Normal ST segments - Labs Labs: Laboratory Tests 05/09/19 05/09/19 05/09/19 10:40 10:40 10:40 WBC 4.9 RBC 4.27 Hgb 12.9 Hct 38.9 MCV 91.0 MCH 30.1 MCHC 33.1 RDW 14.3 Plt Count 205 MPV 8.4 Neut # (Auto) 2.7 Lymph # (Auto) 1.6 [place] # (Auto) 0.3 Eos # (Auto) 0.2 Baso # (Auto) 0.0 Absolute Nucleated RBC 0.00 Nucleated RBC % 0.0 VBG pH VBG pCO2 VBG pO2 VBG HCO3 VBG Total CO2 VBG O2 Saturation VBG Base Excess Sodium 137 Potassium 3.0 L Chloride 98 L Carbon Dioxide 22 Anion Gap 17.0 H BUN 13 Creatinine 1.2 H Estimated GFR (MDRD) 47 L Glucose 452 H Calcium 9.8 Phosphorus Magnesium Total Bilirubin 0.3 AST 37 ALT 21 Alkaline Phosphatase 63 Total Protein 7.8 Albumin 3.7 Globulin 4.1 Albumin/Globulin Ratio 0.9 L Lipase 63 H TSH 1.26 Urine Color Urine Clarity Urine pH Ur Specific [place] Urine Protein Urine Glucose (UA) Urine Ketones Urine Occult Blood Urine Nitrite Urine Bilirubin Urine Urobilinogen Ur Leukocyte Esterase Ur Microscopic Review Urine Culture Comments Salicylates Urine Opiates Screen Ur Oxycodone Screen Urine Methadone Screen Ur Propoxyphene Screen Acetaminophen Ur Barbiturates Screen Ur Tricyclics Screen Ur Phencyclidine Scrn Ur Amphetamine Screen U Methamphetamines Scrn U Benzodiazepines Scrn Urine Cocaine Screen U Cannabinoids Screen Ethyl Alcohol Serum Ketones 05/09/19 05/09/19 05/09/19 10:40 13:09 13:09 WBC RBC Hgb Hct MCV MCH MCHC RDW Plt Count MPV Neut # (Auto) Lymph # (Auto) [place] # (Auto) Eos # (Auto) Baso # (Auto) Absolute Nucleated RBC Nucleated RBC % VBG pH 7.366 VBG pCO2 45.3 VBG pO2 54.8 H VBG HCO3 25.4 VBG Total CO2 26.8 VBG O2 Saturation 86.9 H VBG Base Excess -0.3 Sodium Potassium Chloride Carbon Dioxide Anion Gap BUN Creatinine Estimated GFR (MDRD) Glucose Calcium Phosphorus Magnesium Total Bilirubin AST ALT Alkaline Phosphatase Total Protein Albumin Globulin Albumin/Globulin Ratio Lipase TSH Urine Color Urine Clarity Urine pH Ur Specific [place] Urine Protein Urine Glucose (UA) Urine Ketones Urine Occult Blood Urine Nitrite Urine Bilirubin Urine Urobilinogen Ur Leukocyte Esterase Ur Microscopic Review Urine Culture Comments Salicylates < 6.0 Urine Opiates Screen Ur Oxycodone Screen Urine Methadone Screen Ur Propoxyphene Screen Acetaminophen < 10 L Ur Barbiturates Screen Ur Tricyclics Screen Ur Phencyclidine Scrn Ur Amphetamine Screen U Methamphetamines Scrn U Benzodiazepines Scrn Urine Cocaine Screen U Cannabinoids Screen Ethyl Alcohol 150.9 Serum Ketones NEGATIVE 05/09/19 05/09/19 13:09 14:12 WBC RBC Hgb Hct MCV MCH MCHC RDW Plt Count MPV Neut # (Auto) Lymph # (Auto) [place] # (Auto) Eos # (Auto) Baso # (Auto) Absolute Nucleated RBC Nucleated RBC % VBG pH VBG pCO2 VBG pO2 VBG HCO3 VBG Total CO2 VBG O2 Saturation VBG Base Excess Sodium Potassium Chloride Carbon Dioxide Anion Gap BUN Creatinine Estimated GFR (MDRD) Glucose Calcium Phosphorus 4.5 Magnesium 1.8 Total Bilirubin AST ALT Alkaline Phosphatase Total Protein Albumin Globulin Albumin/Globulin Ratio Lipase TSH Urine Color YELLOW Urine Clarity CLEAR Urine pH 6.5 Ur Specific [place] <=1.005 Urine Protein NEGATIVE Urine Glucose (UA) >=1000 H Urine Ketones NEGATIVE Urine Occult Blood NEGATIVE Urine Nitrite NEGATIVE Urine Bilirubin NEGATIVE Urine Urobilinogen 0.2 (NORMAL) Ur Leukocyte Esterase NEGATIVE Ur Microscopic Review NOT INDICATED Urine Culture Comments NOT INDICATED Salicylates Urine Opiates Screen NEGATIVE Ur Oxycodone Screen NEGATIVE Urine Methadone Screen NEGATIVE Ur Propoxyphene Screen NEGATIVE Acetaminophen Ur Barbiturates Screen NEGATIVE Ur Tricyclics Screen NEGATIVE Ur Phencyclidine Scrn NEGATIVE Ur Amphetamine Screen NEGATIVE U Methamphetamines Scrn NEGATIVE U Benzodiazepines Scrn POSITIVE H Urine Cocaine Screen NEGATIVE U Cannabinoids Screen NEGATIVE Ethyl Alcohol Serum Ketones PD MEDICAL DECISION MAKING - ED course Complexity details: reviewed results, re-evaluated patient, considered differential, d/w patient ED course: Patient feels better after IV fluids. Given insulin for hyperglycemia. No DKA. Encouraged her to stop drinking. Does not want to go to detox or rehab today. Will follow up with her doctor for further care. Ambulating well. Patient counseled regarding signs and symptoms for which I believe and urgent re- evaluation would be necessary. Patient with good understanding of and agreement to plan and is comfortable going home at this time This document was made in part using voice recognition software. While efforts are made to proofread this document, sound alike and grammatical errors may occur. Departure - Departure Disposition: 01 Home, Self Care Clinical Impression: Alcohol intoxication, Hyperglycemia, Dehydration Condition: Good Instructions: ED Hyperglycemia Diabetic, ED Dehydration, ED Alcohol Intoxication Follow-Up: Joel Andujar PA-C [Primary Care Provider] - Within 3 Days Comments: Return if you worsen. Follow up with your doctor for further care. You need to stop drinking alcohol. Discharge Date/Time: 05/09/19 15:37
[2019-05-09 12:36] LABS: ACETAMINOPHEN < 10 ug/mL (10-30); SALICYLATE < 6.0 mg/dL
[2019-05-09] MEDS ORDERED: INSULIN REGULAR HUMAN 100 UNIT/1 ML 10 ML MDV SUBQ STA (12:50)
[2019-05-09] MEDS ORDERED: SODIUM CHLORIDE 0.9% 1,000 ML IV ONE (12:50)
[2019-05-09 13:16] LABS: VBG BASE EXCESS -0.3 mmol/L (-2 - +2); VBG PCO2 45.3 mmHg (41-51); VBG PH 7.366 (7.31-7.41); VBG PO2 54.8 mmHg (25-47); VBG TOTAL CO2 26.8 mmol/L (24-29)
[2019-05-09 13:37] LABS: MAGNESIUM 1.8 mg/dL (1.7-2.8); PHOSPHORUS 4.5 mg/dL (2.5-4.6)
[2019-05-09] MEDS ORDERED: MAGNESIUM SULFATE 2 GRAM 2 GM/50 ML BAG IV ONE (13:41)
[2019-05-09 14:15] VITALS: BP 123/91
[2019-05-09 14:27] LABS: MUDS CUTOFF CONCENTRATIONS CUTOFF CONC BELOW:
[2019-05-09 14:40] LABS: BILIRUBIN,URINE NEGATIVE (NEGATIVE); GLUCOSE, URINE (UA) >=1000 mg/dL (NEGATIVE); KETONES,URINE (UA) NEGATIVE (NEGATIVE); LEUKOCYTE ESTERASE, URINE NEGATIVE (NEGATIVE); NITRITE,URINE NEGATIVE (NEGATIVE); OCCULT BLOOD,URINE NEGATIVE (NEGATIVE); PH,URINE 6.5 PH (5.0-7.5); PROTEIN,URINE NEGATIVE (NEGATIVE); UROBILINOGEN,URINE 0.2 (NORMAL) E.U./dL (NORMAL)
[2019-05-09 14:41] LABS: CLARITY,URINE CLEAR (CLEAR)
[2019-05-09] MEDS ORDERED: LORazepam 1 MG TABLET PO STA (14:43)
[2019-05-09 14:51] LABS: AMPHETAMINE SCREEN,URINE NEGATIVE (NEGATIVE); BENZODIAZEPINES SCREEN, URINE POSITIVE (NEGATIVE); COCAINE SCREEN URINE NEGATIVE (NEGATIVE); METHADONE SCREEN, URINE NEGATIVE (NEGATIVE); METHAMPHETAMINES SCREEN, URINE NEGATIVE (NEGATIVE); OPIATE SCREEN, URINE NEGATIVE (NEGATIVE); OXYCODONE SCREEN, URINE NEGATIVE (NEGATIVE); PROPOXYPHENE SCREEN, URINE NEGATIVE (NEGATIVE); TRICYCLIC ANTIDEPRESSANT,URINE NEGATIVE (NEGATIVE)
== END 2019-05-09 15:37 | disposition home or self-care (01) ==
LOC: EDUNIT# → ED 10:10
DX: F10.120 Alcohol abuse with intoxication, uncomplicated (principal); E86.0 Dehydration; E11.65 Type 2 diabetes mellitus with hyperglycemia; Z79.4 Long term (current) use of insulin; I45.81 Long QT syndrome; I10 Essential (primary) hypertension; L40.9 Psoriasis, unspecified; F17.200 Nicotine dependence, unspecified, uncomplicated
CPT/HCPCS: 80320; 80329; 81003; 82009; 82803; 83690; 83735; 84100; 93005; 96361; 96365; 99283; 99284; J8499; 80053; 80306; 80307; 81001; 84443; 85025; 87086

== ENCOUNTER 2019-05-13 10:31 | Outpatient (CLI) | payer OTHER | END 2019-05-13 10:32 | disposition other institution (70) | LOC: EMS 10:31 | PROVIDERS: ATTEND Surgery | DX: R06.02 Shortness of breath (principal) | CPT/HCPCS: A0425; A0427 ==

== ENCOUNTER 2019-05-13 12:09 | Outpatient (CLI) | payer OTHER | END 2019-05-13 12:10 | disposition short-term general hospital (02) | LOC: EMS 12:09 | PROVIDERS: ATTEND Surgery | DX: R06.02 Shortness of breath (principal) | CPT/HCPCS: A0425; A0427 ==

== ENCOUNTER 2019-05-14 09:07 | Outpatient (CLI) | payer OTHER | END 2019-05-14 09:08 | disposition EMS.NT | LOC: EMS 09:07 | PROVIDERS: ATTEND Surgery | DX: Z03.89 Encounter for observation for other suspected diseases and conditions ruled out (principal) ==

== ENCOUNTER 2019-05-15 01:54 | Outpatient (CLI) | payer OTHER | END 2019-05-15 01:55 | disposition EMS.NT | LOC: EMS 01:54 | PROVIDERS: ATTEND Surgery | DX: R06.02 Shortness of breath (principal) ==

== ENCOUNTER 2019-05-15 04:17 | Outpatient (CLI) | payer OTHER | END 2019-05-15 04:18 | disposition critical access hospital (66) | LOC: EMS 04:17 | PROVIDERS: ATTEND Surgery | DX: R06.02 Shortness of breath (principal) | CPT/HCPCS: A0425; A0427 ==

== ENCOUNTER 2019-05-15 04:37 | Emergency (ER) | payer OTHER ==
--- NOTE | 2019-05-15 04:40 | ED Physician Documentation ---
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 : None HEENT: None Psych: Depression, Anxiety, Other Musculoskeletal: None Derm: Psoriasis - Past Surgical History Past Surgical History: No /AIR QUALITY CHEMIST: section, Dilation and currettage - Present Medications Home Medications: Ambulatory Orders Medication Instructions Recorded Confirmed Gabapentin 300 mg PO TID 05/01/19 05/01/19 Halobetasol Propionate 1 applic TOP BID PRN 05/01/19 05/01/19 Insulin Aspart [NovoLOG] 10 units SUBQ TIDWM 05/01/19 05/01/19 Insulin Glargine [Lantus Solostar] 54 units SUBQ DAILY 05/01/19 05/01/19 Lisinopril 40 mg PO DAILY 05/01/19 05/01/19 Metformin HCl 500 mg PO BIDWM 05/01/19 05/01/19 Metoprolol Tartrate 25 mg PO BID 05/01/19 05/01/19 Simvastatin 40 mg PO DAILY 05/01/19 05/01/19 Venlafaxine ER [Effexor ER] 75 mg PO DAILY 05/01/19 05/01/19 Zolpidem Tartrate [Zolpidem 12.5 mg PO QPM PRN 05/01/19 05/01/19 Tartrate ER] amLODIPine [Norvasc] 5 mg PO DAILY 05/01/19 05/01/19 hydrOXYzine pamoate [Hydroxyzine 25 mg PO QPM PRN 05/01/19 05/01/19 Pamoate] Cholecalciferol [Vitamin D3] 5,000 unit PO DAILY #30 capsule 05/03/19 [place]-3 Acid Ethyl Esters [Lovaza] 1 gm PO BID #60 capsule 05/03/19 chlordiazePOXIDE [Librium] 25 mg PO UD #6 capsule 05/03/19 chlordiazePOXIDE [Librium] See Taper PO UD 4 Days #13 capsule 05/04/19 Lorazepam [Ativan] 1 mg PO TID PRN #2 tablet 05/05/19 - Allergies Allergies/Adverse Reactions: Allergies Allergy/AdvReac Type Severity Reaction Status Date / Time tramadol Allergy Unknown Anxiety Verified 05/01/19 14:06 cyclosporine Allergy Unknown Verified 05/12/19 08:48 bupropion HCl * AdvReac Unknown Anxiety Verified 05/01/19 14:06 [From Wellbutrin] fluoxetine HCl * AdvReac Unknown Hallucinati Verified 05/01/19 14:06 [From Prozac] ons rosiglitazone AdvReac Unknown Rash Verified 05/01/19 14:06 - Social History Does the pt smoke?: Yes Smoking Status: Current every day smoker Does the pt drink ETOH?: Yes Does the pt have substance abuse?: Yes - Immunizations Immunizations are current?: Yes - POLST Patient has POLST: No Results - Vitals Vitals: Oxygen O2 Source Room air
[2019-05-15 04:45] VITALS: BP 131/40
== END 2019-05-15 05:00 | disposition left against medical advice (07) ==
LOC: EDUNIT# → ED 04:37
DX: Z53.21 Procedure and treatment not carried out due to patient leaving prior to being seen by health care provider (principal)

== ENCOUNTER 2019-05-15 05:18 | Emergency (ER) | payer OTHER ==
[2019-05-15 05:29] VITALS: BP 149/89
--- NOTE | 2019-05-15 05:41 | ED Physician Documentation ---
History of Present Illness - Stated complaint Stated Complaint: SOA - Chief complaint Chief Complaint: Resp - History obtained from History obtained from: Patient, EMS - History of Present Illness Timing: Unknown - Additonal information Additional information: BIBA. Patient called 911 at approximately 2 AM, medics say that patient refused medical and wouldn't offer any substantial information as to why she called 911. Thus they left the scene. 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 She did offer c/o dyspnea to medics, and they administered duoneb en route although she had clear lungs to auscultation bilaterally with upper 90s pulse ox room air. She was triaged but shortly after triage, she left ED to waiting room before I was able to evaluate her. Within 30 minutes, she checks back into ED from waiting room. On my HPI, she cannot tell me why she is here nor what she wants done for her in the emergency department. She tells me "you know my problems; drinking, psoriasis". Despite long conversation with patient, she cannot provide me with a chief complaint nor describe what issue or issues she wants me to address at this time. She denies SI, denies feeling unsafe at home. She denies dyspnea, says she just filled rx for inhalers and nebulizers yesterday. She admits to drinking alcohol tonight. 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 : None HEENT: None Psych: Depression, Anxiety, Other Musculoskeletal: None Derm: Psoriasis - Past Surgical History Past Surgical History: No /FURNITURE REFINISHER: section, Dilation and currettage - Present Medications Home Medications: Ambulatory Orders Medication Instructions Recorded Confirmed Gabapentin 300 mg PO TID 05/01/19 05/01/19 Halobetasol Propionate 1 applic TOP BID PRN 05/01/19 05/01/19 Insulin Aspart [NovoLOG] 10 units SUBQ TIDWM 05/01/19 05/01/19 Insulin Glargine [Lantus Solostar] 54 units SUBQ DAILY 05/01/19 05/01/19 Lisinopril 40 mg PO DAILY 05/01/19 05/01/19 Metformin HCl 500 mg PO BIDWM 05/01/19 05/01/19 Metoprolol Tartrate 25 mg PO BID 05/01/19 05/01/19 Simvastatin 40 mg PO DAILY 05/01/19 05/01/19 Venlafaxine ER [Effexor ER] 75 mg PO DAILY 05/01/19 05/01/19 Zolpidem Tartrate [Zolpidem 12.5 mg PO QPM PRN 05/01/19 05/01/19 Tartrate ER] amLODIPine [Norvasc] 5 mg PO DAILY 05/01/19 05/01/19 hydrOXYzine pamoate [Hydroxyzine 25 mg PO QPM PRN 05/01/19 05/01/19 Pamoate] Cholecalciferol [Vitamin D3] 5,000 unit PO DAILY #30 capsule 05/03/19 [place]-3 Acid Ethyl Esters [Lovaza] 1 gm PO BID #60 capsule 05/03/19 chlordiazePOXIDE [Librium] 25 mg PO UD #6 capsule 05/03/19 chlordiazePOXIDE [Librium] See Taper PO UD 4 Days #13 capsule 05/04/19 Lorazepam [Ativan] 1 mg PO TID PRN #2 tablet 05/05/19 - Allergies Allergies/Adverse Reactions: Allergies Allergy/AdvReac Type Severity Reaction Status Date / Time tramadol Allergy Unknown Anxiety Verified 05/15/19 05:29 cyclosporine Allergy Unknown Verified 05/15/19 05:29 bupropion HCl * AdvReac Unknown Anxiety Verified 05/15/19 05:29 [From Wellbutrin] fluoxetine HCl * AdvReac Unknown Hallucinati Verified 05/15/19 05:29 [From Prozac] ons rosiglitazone AdvReac Unknown Rash Verified 05/15/19 05:29 - Social History Does the pt smoke?: Yes Smoking Status: Current every day smoker Does the pt drink ETOH?: Yes Does the pt have substance abuse?: Yes - Immunizations Immunizations are current?: Yes - POLST Patient has POLST: No PD ED PE NORMAL - Vitals Vital signs reviewed: Yes - General General: Alert and oriented X 3, Well developed/nourished, Other (anxious, tearful at times but only briefly) - HEENT HEENT: PERRL, EOMI, Moist mucous membranes - Neck Neck: Supple, no meningeal sign - Cardiac Cardiac: RRR, No murmur - Respiratory Respiratory: No respiratory distress, Clear bilaterally - Abdomen Abdomen: Soft, Non tender PD ED PE EXPANDED - Derm Derm: Rash, Other (plaques on extensor surfaces, face c/w psoriasis) Results - Vitals Vitals: Vital Signs - 24 hr 05/15/19 05/15/19 05/15/19 05:27 06:02 06:07 Temperature 36.4 C L Heart Rate 124 H Respiratory 19 18 18 Rate Blood Pressure 149/89 H O2 Saturation 100 Oxygen O2 Source Room air PD MEDICAL DECISION MAKING - ED course Complexity details: reviewed old records, considered differential, d/w patient ED course: declines offer for SW consult in AM. Given 2mg PO ativan and discharged. Departure - Departure Disposition: 01 Home, Self Care Clinical Impression: Alcohol abuse, Psoriasis Condition: Good Instructions: ED Psoriasis, ED Alcohol Abuse Follow-Up: Petar Velazquez MD [Provider Admit Priv/Credential] - Discharge Date/Time: 05/15/19 06:08
[2019-05-15] MEDS ORDERED: LORazepam 1 MG TABLET PO STA (05:56)
== END 2019-05-15 06:08 | disposition home or self-care (01) ==
LOC: ED 05:18
DX: F10.10 Alcohol abuse, uncomplicated (principal); L40.9 Psoriasis, unspecified; I10 Essential (primary) hypertension; E11.9 Type 2 diabetes mellitus without complications; Z79.4 Long term (current) use of insulin; F17.200 Nicotine dependence, unspecified, uncomplicated
CPT/HCPCS: 99283

== ENCOUNTER 2019-05-15 19:38 | Outpatient (CLI) | payer OTHER | END 2019-05-15 19:39 | disposition critical access hospital (66) | LOC: EMS 19:38 | PROVIDERS: ATTEND Surgery | DX: R45.851 Suicidal ideations (principal) | CPT/HCPCS: A0425; A0429 ==

== ENCOUNTER 2019-05-15 19:59 | Emergency (ER) | payer OTHER ==
[2019-05-15 22:07] LABS: BASOPHILS # (AUTO) 0.1 10^3/uL (0.0-0.1); BASOPHILS % (AUTO) 1.4 %; EOSINOPHILS # (AUTO) 0.2 10^3/uL (0.0-0.7); EOSINOPHILS % (AUTO) 3.8 %; HGB - HEMOGLOBIN 11.3 g/dL (12.0-16.0); LYMPHOCYTES # (AUTO) 2.1 10^3/uL (1.5-3.5); LYMPHOCYTES % (AUTO) 36.7 %; MEAN CORPUSCULAR HEMOGLOBIN 29.6 pg (27.0-31.0); MEAN CORPUSCULAR HGB CONC 31.7 g/dL (32.0-36.0); MEAN CORPUSCULAR VOLUME 93.2 fL (81.0-99.0); MEAN PLATELET VOLUME 9.4 fL (7.9-10.8); MONOCYTES # (AUTO) 0.3 10^3/uL (0.0-1.0); MONOCYTES % (AUTO) 5.9 %; NEUTROPHILS % (AUTO) 51.7 %; PLT - PLATELET COUNT 244 10^3/uL (130-450); RED BLOOD COUNT 3.82 10^6/uL (4.20-5.40); RED CELL DISTRIBUTION WIDTH 14.3 % (12.0-15.0); WHITE BLOOD COUNT 5.8 x10^3/uL (4.8-10.8)
[2019-05-15 22:26] LABS: ACETAMINOPHEN < 10 ug/mL (10-30); ALBUMIN 3.6 g/dL (3.2-5.5); ALBUMIN/GLOBULIN RATIO 0.9 (1.0-2.2); ALKALINE PHOSPHATASE 58 IU/L (42-121); ALT ALANINE AMINOTRANSFERASE 18 IU/L (10-60); AST ASPARTATE AMINOTRANSFERASE 27 IU/L (10-42); BILIRUBIN,TOTAL 0.6 mg/dL (0.2-1.0); BUN - BLOOD UREA NITROGEN 10 mg/dL (6-20); CALCIUM 9.2 mg/dL (8.5-10.3); CARBON DIOXIDE - CO2 24 mmol/L (21-32); CHLORIDE 106 mmol/L (101-111); CREATININE 0.8 mg/dL (0.4-1.0); GFR - MDRD 76 (>89); GLUCOSE 271 mg/dL (70-100); LIPASE 53 U/L (22-51); SALICYLATE < 6.0 mg/dL; SODIUM 143 mmol/L (135-145); TOTAL PROTEIN 7.7 g/dL (6.7-8.2)
--- NOTE | 2019-05-15 22:46 | ED Physician Documentation ---
PD HPI MHE - Stated complaint Stated Complaint: SI, ETOH - Chief complaint Chief Complaint: MHE - History obtained from History obtained from: Patient, EMS, Police - History of Present Illness Primary symptom: Suicidal ideation Contributing factors: Sig other, Substance abuse - ETOH Recently seen: Emergency Dept - Additional information Additional information: This is third time this patient is registered into [facility] ED over past 24 hours. For previous encounter, please refer to my ED note from earlier 05/15/19. In brief, patient called 911 in early AM hours but when medics arrived she would not cooperate with them nor talk to them after initial assessment. She refused transport to ED and thus medics left. She called 911 again approximately 1-2 hours later and was then transported to ED. She was assessed by ED RN for triage but patient then left ED before I could assess her. She then went to waiting samantha m and within 1 hour checked back into the ED; she admitted to drinking alcohol and was conversant with me but despite long conversation with her, she could not provide me with why she came to ED nor issues that she wanted me to address from an emergency medical standpoint. She repeatedly refused SW consult and denied any SI. Tonight she is brought in by ambulance after police assessed her. Per logistics supply officer's printed report (copy is available to me in ED on her chart), patient was on the couch of someone else's residence crying. control officer's report makes note of statements from patient that she wanted to jump off of [place] bridge. control officer's report notes that he had medics transport patient to ED involuntarily due to concerns of SI. Patient denies SI on my HPI. She repeatedly tells me she wants to go home back to her . Patient has had several [facility] ED visits earlier this month including inpatient stay for alcohol withdrawal and DKA. Review of Systems Cardiac: reports: Reviewed and negative Respiratory: reports: Reviewed and negative GI: reports: Reviewed and negative Neurologic: reports: Reviewed and negative Psychiatric: reports: Insomnia. 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: section, Dilation and currettage - Present Medications Home Medications: Ambulatory Orders Medication Instructions Recorded Confirmed Gabapentin 300 mg PO TID 05/01/19 05/01/19 Halobetasol Propionate 1 applic TOP BID PRN 05/01/19 05/01/19 Insulin Aspart [NovoLOG] 10 units SUBQ TIDWM 05/01/19 05/01/19 Insulin Glargine [Lantus Solostar] 54 units SUBQ DAILY 05/01/19 05/01/19 Lisinopril 40 mg PO DAILY 05/01/19 05/01/19 Metformin HCl 500 mg PO BIDWM 05/01/19 05/01/19 Metoprolol Tartrate 25 mg PO BID 05/01/19 05/01/19 Simvastatin 40 mg PO DAILY 05/01/19 05/01/19 Venlafaxine ER [Effexor ER] 75 mg PO DAILY 05/01/19 05/01/19 Zolpidem Tartrate [Zolpidem 12.5 mg PO QPM PRN 05/01/19 05/01/19 Tartrate ER] amLODIPine [Norvasc] 5 mg PO DAILY 05/01/19 05/01/19 hydrOXYzine pamoate [Hydroxyzine 25 mg PO QPM PRN 05/01/19 05/01/19 Pamoate] Cholecalciferol [Vitamin D3] 5,000 unit PO DAILY #30 capsule 05/03/19 [place]-3 Acid Ethyl Esters [Lovaza] 1 gm PO BID #60 capsule 05/03/19 chlordiazePOXIDE [Librium] 25 mg PO UD #6 capsule 05/03/19 chlordiazePOXIDE [Librium] See Taper PO UD 4 Days #13 capsule 05/04/19 Lorazepam [Ativan] 1 mg PO TID PRN #2 tablet 05/05/19 - Allergies Allergies/Adverse Reactions: Allergies Allergy/AdvReac Type Severity Reaction Status Date / Time tramadol Allergy Unknown Anxiety Verified 05/15/19 20:15 cyclosporine Allergy Unknown Verified 05/15/19 20:15 bupropion HCl * AdvReac Unknown Anxiety Verified 05/15/19 20:15 [From Wellbutrin] fluoxetine HCl * AdvReac Unknown Hallucinati Verified 06/20/19 20:15 [From Prozac] ons rosiglitazone AdvReac Unknown Rash Verified 05/15/19 20:15 - Social History Does the pt smoke?: Yes Smoking Status: Current every day smoker Does the pt drink ETOH?: Yes Does the pt have substance abuse?: Yes - Immunizations Immunizations are current?: Yes - POLST Patient has POLST: No PD ED PE NORMAL - Vitals Vital signs reviewed: Yes - General General: Alert and oriented X 3, No acute distress (NAD, although she is clearly upset with being in ED), Well developed/nourished - HEENT HEENT: PERRL, EOMI - Cardiac Cardiac: RRR, No murmur - Respiratory Respiratory: No respiratory distress, Clear bilaterally - Derm Derm: Other (diffuse psoriasis) - Neuro Neuro: Alert and oriented X 3 Eye Opening: Spontaneous Motor: Obeys Commands Verbal: Oriented GCS Score: 15 PD ED PE EXPANDED - Psych Psych: Other (angry but oriented and conversant) Results - Vitals Vitals: Vital Signs - 24 hr 05/15/19 05/16/19 05/16/19 22:37 00:40 01:03 Temperature 36.8 C Heart Rate 107 H Respiratory 16 20 16 Rate Blood Pressure 133/89 H O2 Saturation 99 05/16/19 05/16/19 05/16/19 02:10 02:26 02:50 Temperature Heart Rate Respiratory 16 17 16 Rate Blood Pressure O2 Saturation 05/16/19 05/16/19 05/16/19 02:52 03:07 04:05 Temperature Heart Rate Respiratory 16 16 16 Rate Blood Pressure O2 Saturation 05/16/19 05/16/19 05/16/19 05:19 05:46 06:13 Temperature Heart Rate Respiratory 16 16 16 Rate Blood Pressure O2 Saturation 05/16/19 06:40 Temperature Heart Rate 89 Respiratory 17 Rate Blood Pressure O2 Saturation 99 Oxygen O2 Source Room air - Labs Labs: Laboratory Tests 05/15/19 05/15/19 05/15/19 21:49 21:49 21:49 WBC 5.8 RBC 3.82 L Hgb 11.3 L Hct 35.6 L MCV 93.2 MCH 29.6 MCHC 31.7 L RDW 14.3 Plt Count 244 MPV 9.4 Neut # (Auto) 3.0 Lymph # (Auto) 2.1 [place] # (Auto) 0.3 Eos # (Auto) 0.2 Baso # (Auto) 0.1 Absolute Nucleated RBC 0.00 Nucleated RBC % 0.0 Sodium 143 Potassium 3.4 L Chloride 106 Carbon Dioxide 24 Anion Gap 13.0 BUN 10 Creatinine 0.8 Estimated GFR (MDRD) 76 L Glucose 271 H POC Whole Bld Glucose Calcium 9.2 Total Bilirubin 0.6 AST 27 ALT 18 Alkaline Phosphatase 58 Total Protein 7.7 Albumin 3.6 Globulin 4.1 Albumin/Globulin Ratio 0.9 L Lipase 53 H TSH 0.47 Urine Color Urine Clarity Urine pH Ur Specific [place] Urine Protein Urine Glucose (UA) Urine Ketones Urine Occult Blood Urine Nitrite Urine Bilirubin Urine Urobilinogen Ur Leukocyte Esterase Ur Microscopic Review Urine Culture Comments Salicylates < 6.0 Urine Opiates Screen Ur Oxycodone Screen Urine Methadone Screen Ur Propoxyphene Screen Acetaminophen < 10 L Ur Barbiturates Screen Ur Tricyclics Screen Ur Phencyclidine Scrn Ur Amphetamine Screen U Methamphetamines Scrn U Benzodiazepines Scrn Urine Cocaine Screen U Cannabinoids Screen Ethyl Alcohol 231.8 05/16/19 05/16/19 05/16/19 00:45 05:14 07:52 WBC RBC Hgb Hct MCV MCH MCHC RDW Plt Count MPV Neut # (Auto) Lymph # (Auto) [place] # (Auto) Eos # (Auto) Baso # (Auto) Absolute Nucleated RBC Nucleated RBC % Sodium Potassium Chloride Carbon Dioxide Anion Gap BUN Creatinine Estimated GFR (MDRD) Glucose POC Whole Bld Glucose 213 H Calcium Total Bilirubin AST ALT Alkaline Phosphatase Total Protein Albumin Globulin Albumin/Globulin Ratio Lipase TSH Urine Color YELLOW Urine Clarity CLEAR Urine pH 6.0 Ur Specific [place] 1.010 Urine Protein NEGATIVE Urine Glucose (UA) 500 H Urine Ketones NEGATIVE Urine Occult Blood TRACE-INTA Urine Nitrite NEGATIVE Urine Bilirubin NEGATIVE Urine Urobilinogen 0.2 (NORMAL) Ur Leukocyte Esterase NEGATIVE Ur Microscopic Review NOT INDICATED Urine Culture Comments NOT INDICATED Salicylates Urine Opiates Screen NEGATIVE Ur Oxycodone Screen NEGATIVE Urine Methadone Screen NEGATIVE Ur Propoxyphene Screen NEGATIVE Acetaminophen Ur Barbiturates Screen NEGATIVE Ur Tricyclics Screen NEGATIVE Ur Phencyclidine Scrn NEGATIVE Ur Amphetamine Screen NEGATIVE U Methamphetamines Scrn NEGATIVE U Benzodiazepines Scrn POSITIVE H Urine Cocaine Screen NEGATIVE U Cannabinoids Screen NEGATIVE Ethyl Alcohol 41.3 05/16/19 12:12 WBC RBC Hgb Hct MCV MCH MCHC RDW Plt Count MPV Neut # (Auto) Lymph # (Auto) [place] # (Auto) Eos # (Auto) Baso # (Auto) Absolute Nucleated RBC Nucleated RBC % Sodium Potassium Chloride Carbon Dioxide Anion Gap BUN Creatinine Estimated GFR (MDRD) Glucose POC Whole Bld Glucose 213 H Calcium Total Bilirubin AST ALT Alkaline Phosphatase Total Protein Albumin Globulin Albumin/Globulin Ratio Lipase TSH Urine Color Urine Clarity Urine pH Ur Specific [place] Urine Protein Urine Glucose (UA) Urine Ketones Urine Occult Blood Urine Nitrite Urine Bilirubin Urine Urobilinogen Ur Leukocyte Esterase Ur Microscopic Review Urine Culture Comments Salicylates Urine Opiates Screen Ur Oxycodone Screen Urine Methadone Screen Ur Propoxyphene Screen Acetaminophen Ur Barbiturates Screen Ur Tricyclics Screen Ur Phencyclidine Scrn Ur Amphetamine Screen U Methamphetamines Scrn U Benzodiazepines Scrn Urine Cocaine Screen U Cannabinoids Screen Ethyl Alcohol PD MEDICAL DECISION MAKING - ED course Complexity details: reviewed old records, reviewed results, re-evaluated patient, considered differential, d/w patient ED course: Telepsych consult obtained and they recommend detaining patient. Social work consult obtained in AM for placement. Case signed out to oncoming ED physician at end of my shift (Dr. Santana) pending completion of social work evaluation Departure - Departure Disposition: 01 Home, Self Care Clinical Impression: Alcohol intoxication, Depressive disorder Condition: Good Instructions: ED Depression Comments: Go directly to the detox center in [place] as arranged by the social media project manager. Do not drink on the way there. Discharge Date/Time: 05/16/19 16:10
[2019-05-16 00:40] VITALS: BP 133/89
[2019-05-16 00:52] LABS: MUDS CUTOFF CONCENTRATIONS CUTOFF CONC BELOW:
[2019-05-16 00:53] LABS: BILIRUBIN,URINE NEGATIVE (NEGATIVE); GLUCOSE, URINE (UA) 500 mg/dL (NEGATIVE); KETONES,URINE (UA) NEGATIVE (NEGATIVE); LEUKOCYTE ESTERASE, URINE NEGATIVE (NEGATIVE); NITRITE,URINE NEGATIVE (NEGATIVE); OCCULT BLOOD,URINE TRACE-INTA (NEGATIVE); PROTEIN,URINE NEGATIVE (NEGATIVE); UROBILINOGEN,URINE 0.2 (NORMAL) E.U./dL (NORMAL)
[2019-05-16 00:54] LABS: CLARITY,URINE CLEAR (CLEAR)
[2019-05-16 01:03] LABS: COCAINE SCREEN URINE NEGATIVE (NEGATIVE); METHAMPHETAMINES SCREEN, URINE NEGATIVE (NEGATIVE)
[2019-05-16 01:04] LABS: AMPHETAMINE SCREEN,URINE NEGATIVE (NEGATIVE); BENZODIAZEPINES SCREEN, URINE POSITIVE (NEGATIVE); METHADONE SCREEN, URINE NEGATIVE (NEGATIVE); OPIATE SCREEN, URINE NEGATIVE (NEGATIVE); OXYCODONE SCREEN, URINE NEGATIVE (NEGATIVE); PROPOXYPHENE SCREEN, URINE NEGATIVE (NEGATIVE); TRICYCLIC ANTIDEPRESSANT,URINE NEGATIVE (NEGATIVE)
[2019-05-16] MEDS ORDERED: LORazepam 0.5 MG TABLET PO STA (03:31)
--- NOTE | 2019-05-16 07:37 | TELEPSYCH PHYS NOTE ---
Telepsych Note - CHIEF COMPLAINT/HX OF PRESENT ILLNESS Cheif Complaint and History of Present Illness: Name: Jasmin Brandon : [birth year]. 53F Date: 05/16/19 Time: 9:20am Location of patient: [facility] Location of doctor: [facility] This evaluation was conducted via telepsychiatry with the assistance of onsite staff Chief Complaint: Depression/SI Im an alcoholic and drinking everyday for the past month. History of Present Illness: Pt seen via televideo with the help of onsite staff. Pt is a 53 yo female with hx of Depression, anxiety and severe alcoholism. Pt presented to the hospital BIB police after she went to a strangers home in an intoxicated state asking for help. Of note, pt also called 911 hours earlier, then refused transport to the hospital. She then hours later called again, was transported to the hospital then left. Pt also has several other ED visits this past month due to ETOH. Pt notes a long history of depression and alcohol abuse. States she has been sober but drinks wine in the mornings for several months. States she relapsed last month due to marital discord. States she has been drinking every day, throughout the day. States she drinks because her is upset with her and states her is upset with her because she drinks. Seems to minimize her role in her abuse. Pt states she recalls making SI threats however states she said it to get attention from her . States she also reiterated it to the police as he did not react when she threatened it to her . States she does not want to . Cites her granddaughter as a deterrent. Of note, her relationship with her daughter is strained due to the drinking and she is not allowed to see her grandchild unsupervised also due to the drinking. Pt states she would like to go home. States she is not interested in psychiatric nor substance abuse treatment at this time. On ROS, pt denies AVHs, delusions nor SI/HI. Of note, pts account of her prior and recent hx was contradicted by her . Collateral: Spoke to the pts Tori @ [phone]. He states he is very concerned about his . State over the last few months she has relapsed on ETOH and has been much more severe. States she was not drinking a lot for almost a year as she was on probation for making threats with a knife to harm him and her daughter. States she recently got off probation and feels this is why she is drinking more heavily again. Does believe there is an underlying mood component. States doctors in the past have mentioned bipolar disorder vs. depression. States recently she has been making SI statements and threats. States she did threaten to jump off a bridge last night. States she also has made other statements and threats recently. Despite the pt reporting only one attempt, he reports she has attempted at least 6 times, all via overdose on pills. States last attempt was approximately 1 year prior. States he feels that she is currently testing herself. Has been overusing or overdosing herself on her sleep medications and mixing it with alcohol. States she has not been caring for herself nor her ADLs. States she is sleeping excessively and not ea ting. Sleeping excessively due to the alcohol. States she drinks until she passes out then wakes up and starts over again. States she has not been taking her necessary medical medications. States she is not doing well and needs help. Of note, he states she recently got a Rx for Ambien late last week for #30 pills and the bottle is empty. Feels that she is trying to test the pompa. Scared that he is going to come home from work and either he or his daughters will find her on the floor He confirms that there are no guns in the home. SI/ Self harm: Pt reports a prior hx of suicidal ideation and attempt in 2002 via overdose on Tylenol/ibuprofen. Pt reported only one suicide attempt while intoxicated however per collateral, the pt has attempted at least 6 times if not more. All via overdose. Collateral also notes that the pt has been abusing and overusing her Rx sleep aids. HI/Violence: Pt denies. However per collateral, pt recently off probation for threatening her and adult daughter with a knife. Trauma history: none reported Access to weapons: per pt and confirmed by , no guns in the home. Legal: recently off probation. Psychiatric History/Treatment History: Prior admissions and also previous hx of inpt detox/rehab. Drug/Alcohol History: ETOH Medical History DMII, Psoriasis, HTN, Hchol, GERD, Seasonal Allergies, Asthma Medications & Freq: see chart. Allergies: Tramadol, Cyclosporine, Bupropion, Fluoxetine, Rosiglitazone Sleep: increased Family Psych History/History of suicide none reported Social History: lives with her . Has 2 adult daughters and grandchildren. Very strained relationship with her daughters and is not allowed to see her granddaughter unsupervised. Employment: unemployed. Education: not reported Stressors: marital discord, severe alcohol addiction. Strengths/supports: , daughter Appearance and attire: hospital attire Attitude and behavior: guarded Affect and mood: down/stressed / constricted, at times tearful. Association and thought processes: minimizing, inconsistencies. Thought content: denies delusions. Denies HI. Denies current SI. However made SI threat to jump off a specific bridge to her and police judge. Pt states she did it for attention. Perception: Denies AVHs Sensorium, memory, and orientation: AxOx3 Intellectual functioning: unable to assess fully Insight and judgment: impaired. - SI/HI/SELF HARM SI/HI/SELF HARM (CURRENT OR HISTORY OF):: SI - VIOLENCE/LEGAL/COLLATERAL Violence - Legal - Collateral: recently off probation for threatening her and daughter with a knife. - PSYCHIATRIC HX/TREATMENT HX Psychiatric: Depression, Anxiety, Other - DRUG/ALCOHOL HX ETOH Use: Liquor Substance use/abuse/alcohol text: ETOH dependence, severe, hx of inpt detox and rehab. - MEDICAL HX Does the pt have a hx of MRSA?: No Neurological History: None Eyes, Ears, Nose, Throat: None Cardiovascular: Hypertension, High cholesterol Respiratory: Asthma Skin: Psoriasis Endocrine/Autoimmune: Type 2 diabetes Gastrointestinal: GERD Is Patient ?: No Urinary: None Musculoskeletal: None Blood Disorders: None - SURGICAL HX Gynecologic: section, Dilation and currettage - HOME MEDICATIONS Home Meds (as last confirmed): Patient History Medication Instructions Recorded Confirmed Gabapentin 300 mg PO TID 05/01/19 05/01/19 Halobetasol Propionate 1 applic TOP BID PRN 05/01/19 05/01/19 Insulin Aspart [NovoLOG] 10 units SUBQ TIDWM 05/01/19 05/01/19 Insulin Glargine [Lantus Solostar] 54 units SUBQ DAILY 05/01/19 05/01/19 Lisinopril 40 mg PO DAILY 05/01/19 05/01/19 Metformin HCl 500 mg PO BIDWM 05/01/19 05/01/19 Metoprolol Tartrate 25 mg PO BID 05/01/19 05/01/19 Simvastatin 40 mg PO DAILY 05/01/19 05/01/19 Venlafaxine ER [Effexor ER] 75 mg PO DAILY 05/01/19 05/01/19 Zolpidem Tartrate [Zolpidem 12.5 mg PO QPM PRN 05/01/19 05/01/19 Tartrate ER] amLODIPine [Norvasc] 5 mg PO DAILY 05/01/19 05/01/19 hydrOXYzine pamoate [Hydroxyzine 25 mg PO QPM PRN 05/01/19 05/01/19 Pamoate] - ALLERGIES Allergies (as last confirmed): Allergies Allergy/AdvReac Type Severity Reaction Status Date / Time tramadol Allergy Unknown Anxiety Verified 05/15/19 20:15 cyclosporine Allergy Unknown Verified 05/15/19 20:15 bupropion HCl * AdvReac Unknown Anxiety Verified 05/15/19 20:15 [From Wellbutrin] fluoxetine HCl * AdvReac Unknown Hallucinati Verified 05/15/19 20:15 [From Prozac] ons rosiglitazone AdvReac Unknown Rash Verified 05/15/19 20:15 - FAMILY PSYCH/SUICIDE/SOCIAL HX-MENTAL Family - Suicide - Social Hx and Mental Status Exam: none reported - TREATMENT/PHARMACOLOGICAL RECOMMENDATION Treatment - Pharmacological - Therapy Recommendations: Diagnosis: Unspecified Depressive Disorder, Alcohol Use Disorder, Severe. Impression/Risk Assessment: Pt is a 53 yo female with hx of Depression and Alcoholism. Pt presents to the ED intoxicated and making SI threats to her and police. 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 She also minimizes the extent of her severe alcohol addiction. She has a hx per collateral of multiple suicide attempts and aggression towards others while intoxicated. She has been overusing her Rxed sleep medications as well and mixing with alcohol. She has not been taking her medical meds, not caring for her ADLs. Pt presents as a danger to herself requiring inpt psychiatric stabilization for safety, stabilization and treatment. Dual diagnosis, TESHA treatment recommended. Treatment Recommendation: Inpatient Psychiatric admission For safety, stabilization and treatment Recc dual diagnosis, TESHA treatment. If pt does not agree to voluntary placement, she CANNOT leave and will require involuntary placement. Continue the pts current medication regimen Continue to monitor and treat for si/sxs of ETOH withdrawal per ED protocol. - TIME SPENT & PROVIDER LOCATION Telepsych consultation conducted via videoconferencing: Yes List names and roles of persons who participated in consult: melo covington (psychiatrist), tori () Telepsych Provider Location: [place] Time Telepsych consult began: 09:20 Time Telepsych consult completed: 09:55
[2019-05-16] MEDS ORDERED: INSULIN GLARGINE 300 UNIT/3 ML PEN SUBQ STA (08:01)
[2019-05-16] MEDS ORDERED: LORazepam 1 MG TABLET PO STA (15:20)
== END 2019-05-16 16:10 | disposition home or self-care (01) ==
LOC: EDUNIT# → ED 19:59
DX: F10.129 Alcohol abuse with intoxication, unspecified (principal); F32.9 Major depressive disorder, single episode, unspecified; L40.9 Psoriasis, unspecified; I10 Essential (primary) hypertension; E11.9 Type 2 diabetes mellitus without complications; Z79.4 Long term (current) use of insulin; F17.200 Nicotine dependence, unspecified, uncomplicated
CPT/HCPCS: 36415; 80320; 80329; 81003; 83690; 99283; 99285; A9270; G0425; J1815; J8499; Q3014; 80053; 80306; 80307; 81001; 84443; 85025; 87086

== ENCOUNTER 2019-05-27 21:53 | Outpatient (CLI) | payer OTHER | END 2019-05-27 21:54 | disposition critical access hospital (66) | LOC: EMS 21:53 | PROVIDERS: ATTEND Surgery | DX: F32.9 Major depressive disorder, single episode, unspecified (principal) | CPT/HCPCS: A0425; A0429 ==

== ENCOUNTER 2019-05-27 22:12 | Emergency (ER) | payer OTHER ==
--- NOTE | 2019-05-28 00:10 | ED Physician Documentation ---
History of Present Illness - Stated complaint Stated Complaint: ETOH/DEPRESSED - Chief complaint Chief Complaint: MHE - History obtained from History obtained from: Patient, EMS - History of Present Illness Timing: Unknown (no specific medical complaint) Pain level now: 4 ("everywhere because of my psoriasis" (per patient)) - Additonal information Additional information: [place]. patient admits to heavy alcohol consumption today and this evening. When I ask her what medical issues she would like me to address tonight, she tells me her psoriasis has been bothering her for "a long time" and that she is thinking of moving to the [facility] because it was less severe there. In redirecting her to what I can do for her tonight from an emergency medical standpoint, she says she is upset with her because he told her that she needs to quit drinking; she tells me this criticism is why she drinks so much. She has made the same comment to me on previous ED visits last month. I again try to refocus the conversation on what she would like me to help her with tonight from the emergency medicine standpoint. She requests librium. I remind her that I prescribed this for her last month with instructions to not drink alcohol and she said she would follow up the next day with her PCP, and instead she returned to ED the next day heavily intoxicated. She does not appear to be in withdrawal at this time. For these reasons, I would not give nor prescribe librium at this time. She then requests ativan and I explained that this is a very similar medication to Librium and thus I would not be ordering nor prescribing this medication for the same reasons. she then requests discharge. This patient was in [facility] ED seven times last month, the first visit resulted in admission to hospital for multiple issues, primarily DKA and alcohol intoxication and subsequent withdrawal. On May 15, she checked into the [facility] ED three times (I was on duty for all three of these occasions) and the third visit culminated in telepsych and SW consults and patient was sent to inpatient detox/rehab in [place]. Review of Systems Cardiac: reports: Reviewed and negative Respiratory: reports: Reviewed and negative GI: reports: Reviewed and negative Skin: reports: Rash Musculoskeletal: reports: Neck pain, Back pain, Extremity pain, Joint pain, Other (c/o "pain everywhere") Neurologic: reports: Headache Psychiatric: reports: Anxiety. denies: Depressed, Suicidal, Homicidal PD PAST MEDICAL HISTORY - Past Medical History Past Medical History: Yes Cardiovascular: Hypertension, High cholesterol Respiratory: Asthma Neuro: None Endocrine/Autoimmune: Type 2 diabetes GI: GERD VP COMMUNICATIONS: None : None HEENT: None Psych: Depression, Anxiety, Other Musculoskeletal: None Derm: Psoriasis - Past Surgical History Past Surgical History: No /VP COMMUNICATIONS: section, Dilation and currettage - Present Medications Home Medications: Ambulatory Orders Medication Instructions Recorded Confirmed Gabapentin 300 mg PO TID 05/01/19 05/01/19 Halobetasol Propionate 1 applic TOP BID PRN 05/01/19 05/01/19 Insulin Aspart [NovoLOG] 10 units SUBQ TIDWM 05/01/19 05/01/19 Insulin Glargine [Lantus Solostar] 54 units SUBQ DAILY 05/01/19 05/01/19 Lisinopril 40 mg PO DAILY 05/01/19 05/01/19 Metformin HCl 500 mg PO BIDWM 05/01/19 05/01/19 Metoprolol Tartrate 25 mg PO BID 05/01/19 05/01/19 Simvastatin 40 mg PO DAILY 05/01/19 05/01/19 Venlafaxine ER [Effexor ER] 75 mg PO DAILY 05/01/19 05/01/19 Zolpidem Tartrate [Zolpidem 12.5 mg PO QPM PRN 05/01/19 05/01/19 Tartrate ER] amLODIPine [Norvasc] 5 mg PO DAILY 05/01/19 05/01/19 hydrOXYzine pamoate [Hydroxyzine 25 mg PO QPM PRN 05/01/19 05/01/19 Pamoate] Cholecalciferol [Vitamin D3] 5,000 unit PO DAILY #30 capsule 05/03/19 [place]-3 Acid Ethyl Esters [Lovaza] 1 gm PO BID #60 capsule 05/03/19 chlordiazePOXIDE [Librium] 25 mg PO UD #6 capsule 05/03/19 chlordiazePOXIDE [Librium] See Taper PO UD 4 Days #13 capsule 05/04/19 Lorazepam [Ativan] 1 mg PO TID PRN #2 tablet 05/05/19 - Allergies Allergies/Adverse Reactions: Allergies Allergy/AdvReac Type Severity Reaction Status Date / Time tramadol Allergy Unknown Anxiety Verified 05/28/19 21:16 cyclosporine Allergy Unknown Verified 05/28/19 21:16 bupropion HCl * AdvReac Unknown Anxiety Verified 05/28/19 21:16 [From Wellbutrin] fluoxetine HCl * AdvReac Unknown Hallucinati Verified 05/28/19 21:16 [From Prozac] ons rosiglitazone AdvReac Unknown Rash Verified 05/28/19 21:16 - Social History Does the pt smoke?: Yes Smoking Status: Current every day smoker Does the pt drink ETOH?: Yes Does the pt have substance abuse?: No - Immunizations Immunizations are current?: Yes - POLST Patient has POLST: No PD ED PE NORMAL - Vitals Vital signs reviewed: Yes - General General: Alert and oriented X 3, No acute distress, Well developed/nourished, Other (speech is clear and articulate, answers quickly and appropriately alth ough answers are frequently not relevant to emergent medical issues and rambling) - HEENT HEENT: PERRL, EOMI, Moist mucous membranes, Other (right forehead faint abrasion without swelling or tenderness) - Neck Neck: No bony TTP - Cardiac Cardiac: No murmur - Respiratory Respiratory: No respiratory distress, Clear bilaterally - Abdomen Abdomen: Soft, Non tender - Derm Derm: Other (flaking, scaly, dry plaques diffusely c/w psoriasis) - Extremities Extremities: No edema - Neuro Neuro: Alert and oriented X 3, 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 Eye Opening: Spontaneous Motor: Obeys Commands Verbal: Oriented GCS Score: 15 PD ED PE EXPANDED - Cardiac Cardiac: Tachy, Regular Rhythm Results - Vitals Vitals: Vital Signs - 24 hr 05/28/19 05/28/19 00:02 00:11 Temperature 36.2 C L Heart Rate 109 H Respiratory 16 Rate Blood Pressure 159/90 H O2 Saturation 98 Oxygen O2 Source Room air PD MEDICAL DECISION MAKING - ED course Complexity details: reviewed old records, considered differential, d/w patient Departure - Departure Disposition: 01 Home, Self Care Clinical Impression: Alcoholic intoxication Qualifiers: Complication of substance-induced condition: uncomplicated Qualified Code(s): F10.920 - Alcohol use, unspecified with intoxication, uncomplicated Condition: Good Instructions: ED Alcohol Intoxication Follow-Up: Petar Velazquez MD [Provider Admit Priv/Credential] - Comments: As we discussed, you need to contact your PCP's office to arrange for next available appointment. Discharge Date/Time: 05/28/19 00:38
[2019-05-28 00:12] VITALS: BP 159/90
== END 2019-05-28 00:38 | disposition home or self-care (01) ==
LOC: EDUNIT# → ED 22:12
DX: F10.129 Alcohol abuse with intoxication, unspecified (principal); I10 Essential (primary) hypertension; E11.9 Type 2 diabetes mellitus without complications; L40.9 Psoriasis, unspecified; F17.200 Nicotine dependence, unspecified, uncomplicated; Z79.84 Long term (current) use of oral hypoglycemic drugs
CPT/HCPCS: 80053; 80307; 80320; 80329; 83690; 84443; 85025; 85610; 99283

== ENCOUNTER 2019-05-28 20:50 | Outpatient (CLI) | payer OTHER | END 2019-05-28 21:09 | disposition critical access hospital (66) | LOC: EMS 20:50 | PROVIDERS: ATTEND Surgery | DX: R41.82 Altered mental status, unspecified (principal) | CPT/HCPCS: A0425; A0429 ==

== ENCOUNTER 2019-05-28 21:11 | Emergency (ER) | payer OTHER ==
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
[2019-05-28 21:30] LABS: BASOPHILS # (AUTO) 0.1 10^3/uL (0.0-0.1); BASOPHILS % (AUTO) 1.9 %; EOSINOPHILS # (AUTO) 0.2 10^3/uL (0.0-0.7); EOSINOPHILS % (AUTO) 3.6 %; HGB - HEMOGLOBIN 13.7 g/dL (12.0-16.0); LYMPHOCYTES # (AUTO) 2.5 10^3/uL (1.5-3.5); MEAN CORPUSCULAR HEMOGLOBIN 31.1 pg (27.0-31.0); MEAN CORPUSCULAR HGB CONC 33.9 g/dL (32.0-36.0); MEAN CORPUSCULAR VOLUME 91.8 fL (81.0-99.0); MEAN PLATELET VOLUME 9.5 fL (7.9-10.8); MONOCYTES # (AUTO) 0.6 10^3/uL (0.0-1.0); MONOCYTES % (AUTO) 9.5 %; NEUTROPHILS # (AUTO) 2.5 10^3/uL (1.5-6.6); NEUTROPHILS % (AUTO) 42.2 %; PLT - PLATELET COUNT 252 10^3/uL (130-450); RED CELL DISTRIBUTION WIDTH 13.2 % (12.0-15.0); WHITE BLOOD COUNT 5.9 x10^3/uL (4.8-10.8)
[2019-05-28 21:45] LABS: ACETAMINOPHEN < 10 ug/mL (10-30); BUN - BLOOD UREA NITROGEN 21 mg/dL (6-20); CALCIUM 9.2 mg/dL (8.5-10.3); CARBON DIOXIDE - CO2 29 mmol/L (21-32); CHLORIDE 101 mmol/L (101-111); CREATININE 0.9 mg/dL (0.4-1.0); GFR - MDRD 66 (>89); GLUCOSE 388 mg/dL (70-100); SALICYLATE < 6.0 mg/dL; SODIUM 143 mmol/L (135-145)
[2019-05-28 22:17] LABS: MUDS CUTOFF CONCENTRATIONS CUTOFF CONC BELOW:
[2019-05-28 22:21] LABS: BILIRUBIN,URINE NEGATIVE (NEGATIVE); GLUCOSE, URINE (UA) >=1000 mg/dL (NEGATIVE); KETONES,URINE (UA) NEGATIVE (NEGATIVE); LEUKOCYTE ESTERASE, URINE NEGATIVE (NEGATIVE); NITRITE,URINE NEGATIVE (NEGATIVE); OCCULT BLOOD,URINE TRACE-LYSE (NEGATIVE); PROTEIN,URINE TRACE mg/dL (NEGATIVE); UROBILINOGEN,URINE 0.2 (NORMAL) E.U./dL (NORMAL)
[2019-05-28 22:25] LABS: CLARITY,URINE CLEAR (CLEAR); HCG UR QUAL NEGATIVE
[2019-05-28 22:30] LABS: AMPHETAMINE SCREEN,URINE NEGATIVE (NEGATIVE); BENZODIAZEPINES SCREEN, URINE POSITIVE (NEGATIVE); COCAINE SCREEN URINE NEGATIVE (NEGATIVE); METHADONE SCREEN, URINE NEGATIVE (NEGATIVE); METHAMPHETAMINES SCREEN, URINE NEGATIVE (NEGATIVE); OPIATE SCREEN, URINE NEGATIVE (NEGATIVE); OXYCODONE SCREEN, URINE NEGATIVE (NEGATIVE); PROPOXYPHENE SCREEN, URINE NEGATIVE (NEGATIVE); TRICYCLIC ANTIDEPRESSANT,URINE NEGATIVE (NEGATIVE)
[2019-05-28] MEDS ORDERED: LORazepam 1 MG TABLET PO STA (22:44)
[2019-05-28] MEDS ORDERED: OLANZapine 10 MG VIAL IM STA (23:24)
--- NOTE | 2019-05-29 11:27 | ED Physician Documentation ---
ED Addendum - Addendum Addendum: 05/29/19 11:25The patient is seen by social work. She is deemed to not be imminently dangerous to herself. She does contract for safety. The social director talks extensively with her about counseling and substance abuse. The counselor makes an appointment for the patient in close follow-up in addition to providing resources. This point will discharge the patient and contact her to pick her up. Final diagnoses #1 alcohol intoxication #2 suicidal ideation #3 psoriasis Disposition: the patient is discharged home stable
[2019-05-29 12:22] VITALS: BP 152/98
== END 2019-05-29 12:27 | disposition home or self-care (01) ==
LOC: EDUNIT# → ED 21:11
DX: F10.129 Alcohol abuse with intoxication, unspecified (principal); R45.851 Suicidal ideations; L40.9 Psoriasis, unspecified; E11.9 Type 2 diabetes mellitus without complications; I10 Essential (primary) hypertension; F17.200 Nicotine dependence, unspecified, uncomplicated; Z79.84 Long term (current) use of oral hypoglycemic drugs
CPT/HCPCS: 36415; 80048; 80320; 80329; 81003; 81025; 84443; 85025; 96372; 99283; 99284; J8499; 80306; 80307; 81001; 87086

== ENCOUNTER 2019-06-02 11:21 | Emergency (ER) | payer OTHER ==
[2019-06-02] MEDS ORDERED: LORazepam 1 MG TABLET PO STA ×3 (12:33→22:59)
[2019-06-02] MEDS ORDERED: THIAMINE 100 MG TABLET PO STA (12:33)
[2019-06-02] MEDS ORDERED: ONDANSETRON ODT 4 MG TABLET TL STA (12:33)
--- NOTE | 2019-06-02 12:35 | ED Physician Documentation ---
History of Present Illness - Stated complaint Stated Complaint: ETOH WITHDRAWL - Chief complaint Chief Complaint: Neuro - History obtained from History obtained from: Patient, Family () - History of Present Illness Timing: Last night (53-year-old woman with problems with alcoholism, but also diabetes and severe psoriasis last in detox a few weeks ago. She was drinking heavily over the weekend and hard to arouse this morning. Now feeling shaky and wants to go to detox. Tried to get in with her primary care physician today but he is out of the office and they were referred here for evaluation. She denies any pain. She is nauseous but has not vomited.) Review of Systems Ten Systems: 10 systems reviewed and negative Constitutional: denies: Fever, Chills Cardiac: denies: Chest pain / pressure, Palpitations Respiratory: denies: Dyspnea, Cough PD PAST MEDICAL HISTORY - Past Medical History Cardiovascular: Hypertension, High cholesterol Respiratory: Asthma Neuro: None Endocrine/Autoimmune: Type 2 diabetes GI: GERD CLINICAL RESEARCH COORDINATOR: None : None HEENT: None Psych: Depression, Anxiety, Other Musculoskeletal: None Derm: Psoriasis - Past Surgical History Past Surgical History: No /CLINICAL RESEARCH COORDINATOR: section, Dilation and currettage - Present Medications Home Medications: Ambulatory Orders Medication Instructions Recorded Confirmed Gabapentin 300 mg PO TID 05/01/19 05/01/19 Halobetasol Propionate 1 applic TOP BID PRN 05/01/19 05/01/19 Insulin Aspart [NovoLOG] 10 units SUBQ TIDWM 05/01/19 05/01/19 Insulin Glargine [Lantus Solostar] 54 units SUBQ DAILY 05/01/19 05/01/19 Lisinopril 40 mg PO DAILY 05/01/19 05/01/19 Metformin HCl 500 mg PO BIDWM 05/01/19 05/01/19 Metoprolol Tartrate 25 mg PO BID 05/01/19 05/01/19 Simvastatin 40 mg PO DAILY 05/01/19 05/01/19 Venlafaxine ER [Effexor ER] 75 mg PO DAILY 05/01/19 05/01/19 Zolpidem Tartrate [Zolpidem 12.5 mg PO QPM PRN 05/01/19 05/01/19 Tartrate ER] amLODIPine [Norvasc] 5 mg PO DAILY 05/01/19 05/01/19 hydrOXYzine pamoate [Hydroxyzine 25 mg PO QPM PRN 05/01/19 05/01/19 Pamoate] Cholecalciferol [Vitamin D3] 5,000 unit PO DAILY #30 capsule 05/03/19 [place]-3 Acid Ethyl Esters [Lovaza] 1 gm PO BID #60 capsule 05/03/19 chlordiazePOXIDE [Librium] 25 mg PO UD #6 capsule 05/03/19 chlordiazePOXIDE [Librium] See Taper PO UD 4 Days #13 capsule 05/04/19 Lorazepam [Ativan] 1 mg PO TID PRN #2 tablet 05/05/19 Lorazepam [Ativan] 1 mg PO TID PRN #4 tablet 06/02/19 - Allergies Allergies/Adverse Reactions: Allergies Allergy/AdvReac Type Severity Reaction Status Date / Time tramadol Allergy Unknown Anxiety Verified 06/02/19 11:32 cyclosporine Allergy Unknown Verified 06/02/19 11:32 bupropion HCl * AdvReac Unknown Anxiety Verified 06/02/19 11:32 [From Wellbutrin] fluoxetine HCl * AdvReac Unknown Hallucinati Verified 06/02/19 11:32 [From Prozac] ons rosiglitazone AdvReac Unknown Rash Verified 06/02/19 11:32 - Social History Does the pt smoke?: Yes Smoking Status: Current every day smoker Does the pt drink ETOH?: Yes Does the pt have substance abuse?: No - Family History Family history: reports: Non contributory - Immunizations Immunizations are current?: Yes - POLST Patient has POLST: No PD ED PE NORMAL - Vitals Vital signs reviewed: Yes - General General: Alert and oriented X 3, Other (Mildly shaky but otherwise in no distress) - HEENT HEENT: PERRL, EOMI - Neck Neck: Supple, no meningeal sign, No bony TTP - Cardiac Cardiac: RRR, No murmur - Respiratory Respiratory: No respiratory distress, Clear bilaterally - Abdomen Abdomen: Normal bowel sounds, Soft, Non tender - Back Back: No CVA TTP, No spinal TTP - Derm Derm: Other (Severe psoriasis, she has had it worse in the past.) - Extremities Extremities: No edema, No calf tenderness / cord - Neuro Neuro: Alert and oriented X 3, qualitative field project manager 2-12 intact, Normal speech Eye Opening: Spontaneous Motor: Obeys Commands Verbal: Oriented GCS Score: 15 - Psych Psych: Normal mood, Normal affect Results - Vitals Vitals: Vital Signs - 24 hr 06/02/19 06/02/19 06/02/19 11:30 16:05 19:51 Temperature 36.7 C 36.4 C L Heart Rate 116 H 124 H 88 Respiratory 18 20 18 Rate Blood Pressure 163/93 H 185/90 H 141/88 H O2 Saturation 100 100 06/02/19 20:52 Temperature 36.4 C L Heart Rate 94 Respiratory 18 Rate Blood Pressure 145/86 H O2 Saturation 100 Oxygen O2 Source Room air - EKG (time done) 1648 Rate: Rate (enter#) (108) Rhythm: Sinus tachycardia [place]: Normal Intervals: Normal [place] QRS: Normal Ischemia: Normal ST segments Computer interpretation: Agree with computer - Labs Labs: Laboratory Tests 06/02/19 06/02/19 06/02/19 11:29 12:40 12:40 WBC RBC Hgb Hct MCV MCH MCHC RDW Plt Count MPV Neut # (Auto) Lymph # (Auto) [place] # (Auto) Eos # (Auto) Baso # (Auto) Absolute Nucleated RBC Nucleated RBC % Sodium Potassium Chloride Carbon Dioxide Anion Gap BUN Creatinine Estimated GFR (MDRD) Glucose POC Whole Bld Glucose 238 H Calcium Total Bilirubin AST ALT Alkaline Phosphatase Total Protein Albumin Globulin Albumin/Globulin Ratio Lipase Ur Specific [place] 1.015 Urine HCG, Qual NEGATIVE Salicylates Urine Opiates Screen NEGATIVE Ur Oxycodone Screen NEGATIVE Urine Methadone Screen NEGATIVE Ur Propoxyphene Screen NEGATIVE Acetaminophen Ur Barbiturates Screen NEGATIVE Ur Tricyclics Screen NEGATIVE Ur Phencyclidine Scrn NEGATIVE Ur Amphetamine Screen NEGATIVE U Methamphetamines Scrn NEGATIVE U Benzodiazepines Scrn POSITIVE H Urine Cocaine Screen NEGATIVE U Cannabinoids Screen NEGATIVE Ethyl Alcohol 06/02/19 06/02/19 06/02/19 12:44 12:44 16:23 WBC 9.3 RBC 4.56 Hgb 13.9 Hct 41.3 MCV 90.6 MCH 30.5 MCHC 33.7 RDW 13.0 Plt Count 220 MPV 9.7 Neut # (Auto) 6.3 Lymph # (Auto) 2.1 [place] # (Auto) 0.4 Eos # (Auto) 0.2 Baso # (Auto) 0.1 Absolute Nucleated RBC 0.00 Nucleated RBC % 0.0 Sodium 134 L Potassium 4.0 Chloride 100 L Carbon Dioxide 22 Anion Gap 12.0 BUN 26 H Creatinine 0.9 Estimated GFR (MDRD) 66 L Glucose 224 H POC Whole Bld Glucose 294 H Calcium 8.5 Total Bilirubin 0.9 AST 60 H ALT 52 Alkaline Phosphatase 74 Total Protein 7.9 Albumin 3.8 Globulin 4.1 Albumin/Globulin Ratio 0.9 L Lipase 41 Ur Specific [place] Urine HCG, Qual Salicylates < 6.0 Urine Opiates Screen Ur Oxycodone Screen Urine Methadone Screen Ur Propoxyphene Screen Acetaminophen < 10 L Ur Barbiturates Screen Ur Tricyclics Screen Ur Phencyclidine Scrn Ur Amphetamine Screen U Methamphetamines Scrn U Benzodiazepines Scrn Urine Cocaine Screen U Cannabinoids Screen Ethyl Alcohol 103.6 06/02/19 20:47 WBC RBC Hgb Hct MCV MCH MCHC RDW Plt Count MPV Neut # (Auto) Lymph # (Auto) [place] # (Auto) Eos # (Auto) Baso # (Auto) Absolute Nucleated RBC Nucleated RBC % Sodium Potassium Chloride Carbon Dioxide Anion Gap BUN Creatinine Estimated GFR (MDRD) Glucose POC Whole Bld Glucose 161 H Calcium Total Bilirubin AST ALT Alkaline Phosphatase Total Protein Albumin Globulin Albumin/Globulin Ratio Lipase Ur Specific [place] Urine HCG, Qual Salicylates Urine Opiates Screen Ur Oxycodone Screen Urine Methadone Screen Ur Propoxyphene Screen Acetaminophen Ur Barbiturates Screen Ur Tricyclics Screen Ur Phencyclidine Scrn Ur Amphetamine Screen U Methamphetamines Scrn U Benzodiazepines Scrn Urine Cocaine Screen U Cannabinoids Screen Ethyl Alcohol PD MEDICAL DECISION MAKING - ED course ED course: 53-year-old woman with history of diabetes, hypertension, depression, and alcoholism presents with alcohol withdrawal and requesting detox. She was seen by the social services aide who put out referrals. [facility] was considering but monitor blood pressure and blood sugar better controlled and she was administered her regular meds for this and reassessed several times with improvement. [facility] was still considering after about 11 hours length of stay and the family requested discharge with a couple of lorazepam to retake up the question of detox in the morning. Departure - Departure Disposition: 01 Home, Self Care Clinical Impression: Depression with anxiety, Alcohol withdrawal, Diabetes, Hypertension Condition: Good Record reviewed to determine appropriate education?: Yes Health Concerns: alcoholism Plan of Treatment: ativan prn Care Goals: no alcohol Assessment: as above Instructions: ED Withdrawal Alcohol Prescriptions: Lorazepam [Ativan] 1 mg PO TID PRN #4 tablet PRN Reason: Anxiety Comments: Return anytime, otherwise use the resources you have tomorrow to seek alcohol detoxification options. Avoid alcohol. Continue your current medications.
[2019-06-02 12:50] LABS: BASOPHILS # (AUTO) 0.1 10^3/uL (0.0-0.1); BASOPHILS % (AUTO) 1.2 %; EOSINOPHILS # (AUTO) 0.2 10^3/uL (0.0-0.7); EOSINOPHILS % (AUTO) 1.8 %; HGB - HEMOGLOBIN 13.9 g/dL (12.0-16.0); LYMPHOCYTES # (AUTO) 2.1 10^3/uL (1.5-3.5); MEAN CORPUSCULAR HEMOGLOBIN 30.5 pg (27.0-31.0); MEAN CORPUSCULAR HGB CONC 33.7 g/dL (32.0-36.0); MEAN CORPUSCULAR VOLUME 90.6 fL (81.0-99.0); MEAN PLATELET VOLUME 9.7 fL (7.9-10.8); MONOCYTES # (AUTO) 0.4 10^3/uL (0.0-1.0); MONOCYTES % (AUTO) 4.6 %; NEUTROPHILS # (AUTO) 6.3 10^3/uL (1.5-6.6); NEUTROPHILS % (AUTO) 68.6 %; PLT - PLATELET COUNT 220 10^3/uL (130-450); RED BLOOD COUNT 4.56 10^6/uL (4.20-5.40); WHITE BLOOD COUNT 9.3 x10^3/uL (4.8-10.8)
[2019-06-02 12:50] LABS: MUDS CUTOFF CONCENTRATIONS CUTOFF CONC BELOW:
[2019-06-02 12:58] LABS: HCG UR QUAL NEGATIVE
[2019-06-02 13:05] LABS: ACETAMINOPHEN < 10 ug/mL (10-30); ALBUMIN 3.8 g/dL (3.2-5.5); ALBUMIN/GLOBULIN RATIO 0.9 (1.0-2.2); ALKALINE PHOSPHATASE 74 IU/L (42-121); ALT ALANINE AMINOTRANSFERASE 52 IU/L (10-60); AST ASPARTATE AMINOTRANSFERASE 60 IU/L (10-42); BILIRUBIN,TOTAL 0.9 mg/dL (0.2-1.0); BUN - BLOOD UREA NITROGEN 26 mg/dL (6-20); CALCIUM 8.5 mg/dL (8.5-10.3); CARBON DIOXIDE - CO2 22 mmol/L (21-32); CHLORIDE 100 mmol/L (101-111); CREATININE 0.9 mg/dL (0.4-1.0); GFR - MDRD 66 (>89); GLUCOSE 224 mg/dL (70-100); LIPASE 41 U/L (22-51); SALICYLATE < 6.0 mg/dL; SODIUM 134 mmol/L (135-145); TOTAL PROTEIN 7.9 g/dL (6.7-8.2)
[2019-06-02 13:07] LABS: AMPHETAMINE SCREEN,URINE NEGATIVE (NEGATIVE); BENZODIAZEPINES SCREEN, URINE POSITIVE (NEGATIVE); COCAINE SCREEN URINE NEGATIVE (NEGATIVE); METHADONE SCREEN, URINE NEGATIVE (NEGATIVE); METHAMPHETAMINES SCREEN, URINE NEGATIVE (NEGATIVE); OPIATE SCREEN, URINE NEGATIVE (NEGATIVE); OXYCODONE SCREEN, URINE NEGATIVE (NEGATIVE); PROPOXYPHENE SCREEN, URINE NEGATIVE (NEGATIVE); TRICYCLIC ANTIDEPRESSANT,URINE NEGATIVE (NEGATIVE)
[2019-06-02] MEDS ORDERED: IBUPROFEN 800 MG TABLET PO STA (17:05)
[2019-06-02] MEDS ORDERED: INSULIN ASPART 300 UNIT/3 ML PEN SUBQ ONE (17:29)
[2019-06-02] MEDS ORDERED: METOPROLOL TARTRATE 50 MG TABLET PO STA (17:29)
[2019-06-02] MEDS ORDERED: metFORMIN 500 MG TABLET PO STA (17:29)
[2019-06-02] MEDS ORDERED: LISINOPRIL 20 MG TABLET PO STA (17:29)
[2019-06-02] MEDS ORDERED: INSULIN REGULAR HUMAN 100 UNIT/1 ML 10 ML MDV SUBQ STA (17:55)
[2019-06-02 23:13] VITALS: BP 153/82
== END 2019-06-02 23:21 | disposition home or self-care (01) ==
LOC: ED 11:21
DX: F10.239 Alcohol dependence with withdrawal, unspecified (principal); F32.9 Major depressive disorder, single episode, unspecified; F41.9 Anxiety disorder, unspecified; F17.200 Nicotine dependence, unspecified, uncomplicated; I10 Essential (primary) hypertension; E11.9 Type 2 diabetes mellitus without complications; Z79.4 Long term (current) use of insulin
CPT/HCPCS: 36415; 80053; 80320; 80329; 81025; 83690; 85025; 93005; 99284; A9270; J1815; J8499; Q0162; 80306; 80307

== ENCOUNTER 2020-03-09 08:15 | Outpatient (CLI) | payer OTHER | END 2020-03-09 23:59 | disposition home or self-care (01) | LOC: LAB.WCP 08:15 | PROVIDERS: ATTEND Family Medicine | DX: R30.0 Dysuria (principal) | CPT/HCPCS: 87086; 87181 ==

== ENCOUNTER 2020-04-27 07:00 | Outpatient (CLI) | payer OTHER ==
[2020-04-27 18:17] LABS: BASOPHILS # (AUTO) 0.1 10^3/uL (0.0-0.1); BASOPHILS % (AUTO) 1.9 %; EOSINOPHILS # (AUTO) 0.2 10^3/uL (0.0-0.7); EOSINOPHILS % (AUTO) 3.8 %; HGB - HEMOGLOBIN 13.9 g/dL (12.0-16.0); LYMPHOCYTES % (AUTO) 34.4 %; MEAN CORPUSCULAR HEMOGLOBIN 29.1 pg (27.0-31.0); MEAN CORPUSCULAR HGB CONC 32.9 g/dL (32.0-36.0); MEAN CORPUSCULAR VOLUME 88.5 fL (81.0-99.0); MEAN PLATELET VOLUME 10.5 fL (7.9-10.8); MONOCYTES # (AUTO) 0.4 10^3/uL (0.0-1.0); PLT - PLATELET COUNT 185 10^3/uL (130-450); RED BLOOD COUNT 4.77 10^6/uL (4.20-5.40); WHITE BLOOD COUNT 5.8 x10^3/uL (4.8-10.8)
[2020-04-27 18:29] LABS: CREATININE,URINE 24.6 mg/dL; MICROALBUM/CREATININE RATIO,UR 20.3 ug/mg (<30.0); MICROALBUMIN,URINE 0.5 mg/dL (0-300.0)
[2020-04-27 18:33] LABS: ALBUMIN 3.9 g/dL (3.2-5.5); ALBUMIN/GLOBULIN RATIO 1.1 (1.0-2.2); ALKALINE PHOSPHATASE 63 IU/L (42-121); ALT ALANINE AMINOTRANSFERASE 19 IU/L (10-60); AST ASPARTATE AMINOTRANSFERASE 18 IU/L (10-42); BILIRUBIN,TOTAL 0.7 mg/dL (0.2-1.0); BUN - BLOOD UREA NITROGEN 19 mg/dL (6-20); CALCIUM 9.5 mg/dL (8.5-10.3); CARBON DIOXIDE - CO2 27 mmol/L (21-32); CHLORIDE 93 mmol/L (101-111); CHOL/HDL RATIO 6.7 (<4.4); CHOLESTEROL 336 mg/dL; HDL CHOLESTEROL 50 mg/dL; SODIUM 131 mmol/L (135-145); TOTAL PROTEIN 7.6 g/dL (6.7-8.2)
[2020-04-27 19:09] LABS: LDL CHOLESTEROL,DIRECT 178 mg/dL; LDLD/HDL RATIO 3.6 (<4.4)
[2020-04-27 19:58] LABS: GLUCOSE 607 mg/dL (70-100)
== END 2020-04-27 23:59 | disposition home or self-care (01) ==
LOC: LAB.WCP 07:00
PROVIDERS: ATTEND Family Medicine
DX: E11.9 Type 2 diabetes mellitus without complications (principal)
CPT/HCPCS: 36415; 80050; 80061; 82043; 82570; 83721

== ENCOUNTER 2020-10-14 11:34 | Outpatient (CLI) | payer OTHER | END 2020-10-14 11:35 | disposition EMS.NT | LOC: EMS 11:34 | PROVIDERS: ATTEND Surgery | DX: F41.9 Anxiety disorder, unspecified (principal) ==

== ENCOUNTER 2021-07-29 21:33 | Outpatient (CLI) | payer OTHER | END 2021-07-29 21:34 | disposition EMS.NT | LOC: EMS 21:33 | DX: S50.312A Abrasion of left elbow, initial encounter (principal); V09.00XA Pedestrian injured in nontraffic accident involving unspecified motor vehicles, initial encounter ==

== ENCOUNTER 2021-11-29 08:00 | Outpatient (CLI) | payer OTHER ==
[2021-11-29 18:09] LABS: BASOPHILS # (AUTO) 0.1 10^3/uL (0.0-0.1); BASOPHILS % (AUTO) 1.7 %; EOSINOPHILS # (AUTO) 0.4 10^3/uL (0.0-0.7); EOSINOPHILS % (AUTO) 6.3 %; HCT - HEMATOCRIT 39.7 % (37.0-47.0); HGB - HEMOGLOBIN 13.6 g/dL (12.0-16.0); LYMPHOCYTES # (AUTO) 2.1 10^3/uL (1.5-3.5); LYMPHOCYTES % (AUTO) 31.5 %; MEAN CORPUSCULAR HGB CONC 34.3 g/dL (32.0-36.0); MEAN CORPUSCULAR VOLUME 93.4 fL (81.0-99.0); MEAN PLATELET VOLUME 10.9 fL (7.9-10.8); MONOCYTES # (AUTO) 0.7 10^3/uL (0.0-1.0); MONOCYTES % (AUTO) 10.1 %; NEUTROPHILS # (AUTO) 3.3 10^3/uL (1.5-6.6); NEUTROPHILS % (AUTO) 49.5 %; PLT - PLATELET COUNT 207 10^3/uL (130-450); RED BLOOD COUNT 4.25 10^6/uL (4.20-5.40); RED CELL DISTRIBUTION WIDTH 11.9 % (12.0-15.0); WHITE BLOOD COUNT 6.6 x10^3/uL (4.8-10.8)
[2021-11-29 18:21] LABS: ALBUMIN 3.9 g/dL (3.2-5.5); ALKALINE PHOSPHATASE 55 IU/L (42-121); ALT ALANINE AMINOTRANSFERASE 72 IU/L (10-60); AST ASPARTATE AMINOTRANSFERASE 65 IU/L (10-42); BILIRUBIN,TOTAL 0.5 mg/dL (0.2-1.0); BUN - BLOOD UREA NITROGEN 20 mg/dL (6-20); CALCIUM 10.2 mg/dL (8.5-10.3); CARBON DIOXIDE - CO2 27 mmol/L (21-32); CHLORIDE 99 mmol/L (101-111); CHOL/HDL RATIO 5.3 (<4.4); CHOLESTEROL 262 mg/dL; CREATININE 0.9 mg/dL (0.4-1.0); GFR - MDRD 65 (>89); GLUCOSE 232 mg/dL (70-100); HDL CHOLESTEROL 49 mg/dL; LDL CHOLESTEROL,CALCULATED 170 mg/dL; LDL/HDL RATIO 3.5 (<4.4); POTASSIUM 4.6 mmol/L (3.5-5.0); SODIUM 136 mmol/L (135-145); TRIGLYCERIDES 215 mg/dL; VLDL CHOLESTEROL 43 mg/dL
[2021-11-29 18:30] LABS: CREATININE,URINE 71.4 mg/dL; MICROALBUM/CREATININE RATIO,UR 390.8 ug/mg (<30.0); MICROALBUMIN,URINE 27.9 mg/dL (0-300.0)
[2021-11-29 18:31] LABS: BILIRUBIN,URINE NEGATIVE (NEGATIVE); GLUCOSE, URINE (UA) >=1000 mg/dL (NEGATIVE); KETONES,URINE (UA) NEGATIVE (NEGATIVE); LEUKOCYTE ESTERASE, URINE NEGATIVE (NEGATIVE); NITRITE,URINE NEGATIVE (NEGATIVE); OCCULT BLOOD,URINE NEGATIVE (NEGATIVE); PROTEIN,URINE 30 mg/dL (NEGATIVE); UROBILINOGEN,URINE 0.2 (NORMAL) E.U./dL (NORMAL)
[2021-11-29 18:39] LABS: CLARITY,URINE CLEAR (CLEAR)
[2021-11-29 18:54] LABS: WBC,URINE 0-3 /HPF (0-5)
[2021-11-29 18:55] LABS: BACTERIA,URINE Rare /HPF (None Seen); RBC,URINE 0-5 /HPF (0-5); SQUAMOUS EPITHELIAL CELL,UR FEW Squamous (<= Few)
[2021-11-29 19:41] LABS: ESTIMATED AVERAGE GLUCOSE 200 mg/dL (70-100); HEMOGLOBIN A1c% 8.6 % (4.27-6.07)
== END 2021-11-29 23:59 | disposition home or self-care (01) ==
LOC: LAB.WCP 08:00
PROVIDERS: ATTEND Nurse Practitioner
DX: I10 Essential (primary) hypertension (principal); E78.5 Hyperlipidemia, unspecified; E11.8 Type 2 diabetes mellitus with unspecified complications; R30.0 Dysuria
CPT/HCPCS: 36415; 80053; 80061; 81001; 82043; 82570; 83036; 83721; 85025; 87086

== ENCOUNTER 2021-12-29 20:57 | Outpatient (CLI) | payer OTHER | END 2021-12-29 20:58 | disposition left against medical advice (07) | LOC: EMS 20:57 | DX: F32.A Depression, unspecified (principal); Z72.89 Other problems related to lifestyle ==

== ENCOUNTER 2022-06-14 22:31 | Outpatient (CLI) | payer OTHER | END 2022-06-14 22:32 | disposition EMS.NT | LOC: EMS 22:31 | DX: R06.02 Shortness of breath (principal); F41.9 Anxiety disorder, unspecified; Z72.89 Other problems related to lifestyle ==

== ENCOUNTER 2022-07-24 08:00 | Outpatient (CLI) | payer OTHER ==
--- NOTE | 2022-07-25 14:38 | XRAY Report ---
PROCEDURE: Lumbar Spine 2 View INDICATIONS: R SIDED LOW BACK PX TECHNIQUE: 3 views of the lumbar spine were acquired. COMPARISON: 12/20/2013. FINDINGS: Bones: 5 [id number] vertebrae are present. There is 4 mm retrolisthesis of L2 on L3. Degenerat emy endplate changes, loss of disc height and bilateral facet arthrosis throughout lumbar spine is se en. No vertebral body compression fractures. No suspicious bony lesions. Soft tissues: Overlying bowel gas pattern is normal. No suspicious soft tissue calcifications. IMPRESSION: 4 mm retrolisthesis of L2 on L3. Mild degenerative disc disease throughout lumbar spine. No acute compression fracture. Reviewed by: Jonatan Carrillo MD on 07/25/2022 2:37 PM PDT Approved by: Jonatan Carrillo MD on 07/25/2022 2:37 PM PDT Station ID: [id number]
== END 2022-07-24 23:59 | disposition home or self-care (01) ==
LOC: DI.N 08:00
PROVIDERS: ATTEND Physician Assistant Medical
DX: M54.41 Lumbago with sciatica, right side (principal); M43.16 Spondylolisthesis, lumbar region; M47.816 Spondylosis without myelopathy or radiculopathy, lumbar region; M51.36 Other intervertebral disc degeneration, lumbar region

== ENCOUNTER 2022-09-05 11:31 | Emergency (ER) | payer OTHER ==
[2022-09-05 12:04] VITALS: BP 133/70
[2022-09-05] MEDS ORDERED: HYDROcod/ACETAM 5/325 MG TABLET PO STA (13:47)
--- NOTE | 2022-09-05 13:54 | ED Physician Documentation ---
PD HPI LOWER EXT INJURY - Stated complaint Stated Complaint: RT LEG PX - Chief complaint Chief Complaint: Back Pain - History obtained from History obtained from: Patient - Additional information Additional information: 6 months of right groin pain worse with walking and certain movements of the right hip. No associated rash or vaginal discharge or bleeding. She has a history of poorly controlled diabetes, psoriasis, and psoriatic arthritis. There was no injury. Review of Systems Eyes: reports: Reviewed and negative Ears: reports: Reviewed and negative Cardiac: reports: Reviewed and negative Respiratory: reports: Reviewed and negative PD PAST MEDICAL HISTORY - Past Medical History Cardiovascular: Hypertension, High cholesterol Respiratory: Asthma Neuro: None Endocrine/Autoimmune: Type 2 diabetes GI: GERD WINDCHILL ADMINISTRATOR: None : None HEENT: None Psych: Depression, Anxiety, Other Musculoskeletal: None Derm: Psoriasis - Past Surgical History Past Surgical History: No /WINDCHILL ADMINISTRATOR: section, Dilation and currettage - Present Medications Home Medications: Ambulatory Orders Medication Instructions Recorded Confirmed Gabapentin 300 mg PO TID 05/01/19 05/01/19 Halobetasol Propionate 1 applic TOP BID PRN 05/01/19 05/01/19 Insulin Aspart [NovoLOG] 10 units SUBQ TIDWM 05/01/19 05/01/19 Insulin Glargine [Lantus Solostar] 54 units SUBQ DAILY 05/01/19 05/01/19 Metformin HCl 500 mg PO BIDWM 05/01/19 05/01/19 Metoprolol Tartrate 25 mg PO BID 05/01/19 05/01/19 Simvastatin 40 mg PO DAILY 05/01/19 05/01/19 Venlafaxine ER [Effexor ER] 75 mg PO DAILY 05/01/19 05/01/19 Zolpidem Tartrate [Zolpidem 12.5 mg PO QPM PRN 05/01/19 05/01/19 Tartrate ER] amLODIPine [Norvasc] 5 mg PO DAILY 05/01/19 05/01/19 hydrOXYzine pamoate [Hydroxyzine 25 mg PO QPM PRN 05/01/19 05/01/19 Pamoate] lisinopriL [Lisinopril] 40 mg PO DAILY 05/01/19 05/01/19 Cholecalciferol [Vitamin D3] 5,000 unit PO DAILY #30 capsule 05/03/19 [place]-3 Acid Ethyl Esters [Lovaza] 1 gm PO BID #60 capsule 05/03/19 chlordiazePOXIDE [Librium] 25 mg PO UD #6 capsule 05/03/19 chlordiazePOXIDE [Librium] See Taper PO UD 4 Days #13 capsule 05/04/19 Lorazepam [Ativan] 1 mg PO TID PRN #2 tablet 05/05/19 Lorazepam [Ativan] 1 mg PO TID PRN #4 tablet 06/02/19 Cyclobenzaprine [Flexeril] 10 mg PO TID PRN #20 tablet 07/21/22 Oxycodone HCl/Acetaminophen 1 - 2 each PO Q6H PRN #14 tablet 07/21/22 [Percocet 5-325 mg Tablet] HYDROcod/ACETAM 5/325 [[place] 5/325] 1 - 2 tab PO Q6H PRN #15 tablet 09/05/22 - Allergies Allergies/Adverse Reactions: Allergies Allergy/AdvReac Type Severity Reaction Status Date / Time tramadol Allergy Unknown Anxiety Verified 09/05/22 12:04 cyclosporine Allergy Unknown Verified 09/05/22 12:04 bupropion HCl * AdvReac Unknown Anxiety Verified 09/05/22 12:04 [From Wellbutrin] fluoxetine HCl * AdvReac Unknown Hallucinati Verified 09/05/22 12:04 [From Prozac] ons rosiglitazone AdvReac Unknown Rash Verified 09/05/22 12:04 - Social History Does the pt smoke?: Yes Smoking Status: Current every day smoker Does the pt drink ETOH?: Yes Does the pt have substance abuse?: No - Immunizations Immunizations are current?: Yes - POLST Patient has POLST: No PD ED PE NORMAL - Vitals Vital signs reviewed: Yes - General General: Alert and oriented X 3, No acute distress - Derm Derm: Normal color, Warm and dry - Extremities Extremities: No calf tenderness / cord, Other (She has pain with internal and external rotation of the right hip. She is tender over the greater trochanter and the groin. No masses. Lower abdomen is nontender.) - Neuro Neuro: Alert and oriented X 3, Normal speech Results - Vitals Vitals: Vital Signs - 24 hr 09/05/22 12:01 Temperature 37.6 C Heart Rate 79 Respiratory 16 Rate Blood Pressure 133/70 H O2 Saturation 100 Oxygen O2 Source Room air - Rads (name of study) 2 view x-ray of the right hip demonstrates moderate OA without other acute findings. Radiology: EMP read contemporaneously Departure - Departure Disposition: 01 Home, Self Care Clinical Impression: Hip osteoarthritis Condition: Good Record reviewed to determine appropriate education?: Yes Instructions: Hip Osteoarthritis Follow-Up: Orthopedic Care [Provider Group] Prescriptions: HYDROcod/ACETAM 5/325 [[place] 5/325] 1 - 2 tab PO Q6H PRN #15 tablet PRN Reason: Pain Comments: I sent your prescription electronically to [facility] in [place]. You do have arthritis in your right hip. Is fine to follow-up with a high school science teacher, but you might also consider seeing an orthopedist as well. Return for new or worsening symptoms. I am prescribing a short course of narcotic pain medication for you. These are potentially dangerous and addictive medications that should be used carefully. These medications may constipate you. Take an [id number] stool softener (docusate) twice daily with plenty of water while taking these medications. If you go 24 hours without a bowel movement, take [id number] miralax, per package instructions. Do not drink or drive while taking these medications. If you received narcotic or sedating medications while in the emergency department, do not drive for 24 hours. Store this medication in a safe, secure place and out of reach of children. It is a violation of federal law to give or sell this medication to another person or to use in a manner other than prescribed. The ED will not refill narcotic prescriptions, including prescriptions lost or stolen. To dispose of unwanted medications: 1. [facility] at [address] in [place] has a medication drop box. They accept prescription medications (in pill form) Sunday through Sunday 9:00 a.m. to 5:00 p.m. 2. The [facility] [employer] accepts prescription medications (in pill form only) for disposal year round. Call for more information. 3. Contact the [facility] for the next [facility] sponsored prescription drug collection event. , [phone], or [phone]; Note that many narcotic pain relievers also contain Tylenol/acetaminophen. Plea se ensure that your total dose of acetaminophen from all sources does not exceed 3 g (3000 mg) per day.
--- NOTE | 2022-09-05 14:10 | XRAY Report ---
PROCEDURE: Hip w/Pelvis 2-3V RT INDICATIONS: hip pain TECHNIQUE: AP pelvis with lateral view(s) of the right hip(s). COMPARISON: None. FINDINGS: Bones: No fractures or dislocations. Pelvic ring appears intact. No suspicious bony lesions. Hip joint space is mildly decreased bilaterally, with marginal osteophytosis and subchondral sclerosis no emily. Findings more pronounced on the right. Soft tissues: The visualized bowel gas pattern is normal. No suspicious soft tissue calcifications. IMPRESSION: Right greater than left moderate hip osteoarthritis. No acute finding. Reviewed by: Derik Estrada MD on 09/05/2022 2:09 PM PDT Approved by: Derik Estrada MD on 09/05/2022 2:09 PM PDT Station ID: [id number]
== END 2022-09-05 14:36 | disposition home or self-care (01) ==
LOC: ED 11:31
DX: M16.0 Bilateral primary osteoarthritis of hip (principal); R10.31 Right lower quadrant pain; L40.50 Arthropathic psoriasis, unspecified; E11.9 Type 2 diabetes mellitus without complications; Z79.4 Long term (current) use of insulin; Z79.84 Long term (current) use of oral hypoglycemic drugs; I10 Essential (primary) hypertension; F17.200 Nicotine dependence, unspecified, uncomplicated; Z79.899 Other long term (current) drug therapy
CPT/HCPCS: 73502; 99283; A9270

== ENCOUNTER 2022-09-08 17:17 | Outpatient (CLI) | payer OTHER | END 2022-09-08 17:18 | disposition critical access hospital (66) | LOC: EMS 17:17 | DX: M25.551 Pain in right hip (principal) | CPT/HCPCS: A0425; A0429 ==

== ENCOUNTER 2022-09-11 16:35 | Outpatient (CLI) | payer OTHER | END 2022-09-11 16:36 | disposition critical access hospital (66) | LOC: EMS 16:35 | DX: M16.11 Unilateral primary osteoarthritis, right hip (principal); M17.11 Unilateral primary osteoarthritis, right knee; Z72.89 Other problems related to lifestyle | CPT/HCPCS: A0425; A0429 ==

== ENCOUNTER 2022-09-11 16:58 | Emergency (ER) | payer OTHER ==
[2022-09-11] MEDS ORDERED: KETOROLAC 60 MG/2 ML VIAL IM STA (17:16)
[2022-09-11] MEDS ORDERED: DEXAMETHASONE 10 MG/ML VIAL IM STA (17:16)
--- NOTE | 2022-09-11 17:52 | ED Physician Documentation ---
History of Present Illness - Stated complaint Stated Complaint: ETOH - Chief complaint Chief Complaint: MHE - History obtained from History obtained from: Patient, EMS - Additonal information Additional information: The patient is brought to the emergency department by EMS for chief complaint of alcohol intoxication and "I need pain meds". The patient was recently diagnosed with osteoarthritis of her right hip and states that she has not been able to get any pain medication from her primary doctor, due to her chronic alcoholism. The patient has a history of drinking very heavily for years, though she did have a 6-month period of sobriety. However, she has been drinking for months since. The patient has been given narcotic prescriptions a couple of times from the emergency department, but when she finished the medications early and called asking for another refill, clearly intoxicated on the phone, the Patient was prescribed Mobic and no further narcotics. Patient states that she just cannot take the pain and this is why she keeps drinking. She states she believes that she would not be drinking if it were not for the pain, not withstanding that she was already drinking heavily for years before that. The patient is already been drinking heavily just prior to coming to the emergency department. No other complaints at this time. No recent injury. Review of Systems Ten Systems: 10 systems reviewed and negative Constitutional: reports: Reviewed and negative Eyes: reports: Reviewed and negative Ears: reports: Reviewed and negative Nose: reports: Reviewed and negative Throat: reports: Reviewed and negative Cardiac: reports: Reviewed and negative Respiratory: reports: Reviewed and negative GI: reports: Reviewed and negative : reports: Reviewed and negative Skin: reports: Reviewed and negative Musculoskeletal: reports: Joint pain Neurologic: reports: Reviewed and negative Psychiatric: reports: Reviewed and negative Endocrine: reports: Reviewed and negative Immunocompromised: reports: Reviewed and negative PD PAST MEDICAL HISTORY - Past Medical History Past Medical History: Yes Cardiovascular: Hypertension, High cholesterol Respiratory: Asthma Neuro: None Endocrine/Autoimmune: Type 2 diabetes GI: GERD PRACTICE NURSE: None : None HEENT: None Psych: Depression, Anxiety, Other Musculoskeletal: None Derm: Psoriasis - Past Surgical History Past Surgical History: No /PRACTICE NURSE: section, Dilation and currettage - Present Medications Home Medications: Ambulatory Orders Medication Instructions Recorded Confirmed Gabapentin 300 mg PO TID 05/01/19 05/01/19 Halobetasol Propionate 1 applic TOP BID PRN 05/01/19 05/01/19 Insulin Aspart [NovoLOG] 10 units SUBQ TIDWM 05/01/19 05/01/19 Insulin Glargine [Lantus Solostar] 54 units SUBQ DAILY 05/01/19 05/01/19 Metformin HCl 500 mg PO BIDWM 05/01/19 05/01/19 Metoprolol Tartrate 25 mg PO BID 05/01/19 05/01/19 Simvastatin 40 mg PO DAILY 05/01/19 05/01/19 Venlafaxine ER [Effexor ER] 75 mg PO DAILY 05/01/19 05/01/19 Zolpidem Tartrate [Zolpidem 12.5 mg PO QPM PRN 05/01/19 05/01/19 Tartrate ER] amLODIPine [Norvasc] 5 mg PO DAILY 05/01/19 05/01/19 hydrOXYzine pamoate [Hydroxyzine 25 mg PO QPM PRN 05/01/19 05/01/19 Pamoate] lisinopriL [Lisinopril] 40 mg PO DAILY 05/01/19 05/01/19 Cholecalciferol [Vitamin D3] 5,000 unit PO DAILY #30 capsule 05/03/19 [place]-3 Acid Ethyl Esters [Lovaza] 1 gm PO BID #60 capsule 05/03/19 chlordiazePOXIDE [Librium] 25 mg PO UD #6 capsule 05/03/19 chlordiazePOXIDE [Librium] See Taper PO UD 4 Days #13 capsule 05/04/19 Lorazepam [Ativan] 1 mg PO TID PRN #2 tablet 05/05/19 Lorazepam [Ativan] 1 mg PO TID PRN #4 tablet 06/02/19 Cyclobenzaprine [Flexeril] 10 mg PO TID PRN #20 tablet 07/21/22 Oxycodone HCl/Acetaminophen 1 - 2 each PO Q6H PRN #14 tablet 07/21/22 [Percocet 5-325 mg Tablet] HYDROcod/ACETAM 5/325 [[place] 5/325] 1 - 2 tab PO Q6H PRN #15 tablet 09/05/22 Meloxicam [Mobic] 7.5 mg PO BID PRN #10 tablet 09/08/22 - Allergies Allergies/Adverse Reactions: Allergies Allergy/AdvReac Type Severity Reaction Status Date / Time tramadol Allergy Unknown Anxiety Verified 09/08/22 17:49 cyclosporine Allergy Unknown Verified 09/08/22 17:49 bupropion HCl * AdvReac Unknown Anxiety Verified 09/08/22 17:49 [From Wellbutrin] fluoxetine HCl * AdvReac Unknown Hallucinati Verified 09/08/22 17:49 [From Prozac] ons rosiglitazone AdvReac Unknown Rash Verified 09/08/22 17:49 - Social History Does the pt smoke?: Yes Smoking Status: Current every day smoker Does the pt drink ETOH?: Yes Does the pt have substance abuse?: No - Immunizations Immunizations are current?: Yes - POLST Patient has POLST: No PD ED PE NORMAL - Vitals Vital signs reviewed: Yes - General General: Alert and oriented X 3, No acute distress, Well developed/nourished, Other (Patient smells strongly of alcohol and appears mildly clinically intoxicated.) - HEENT HEENT: Atraumatic, PERRL, EOMI, Moist mucous membranes - Neck Neck: Supple, no meningeal sign - Cardiac Cardiac: RRR, No murmur, Strong equal pulses - Respiratory Respiratory: No respiratory distress, Clear bilaterally - Abdomen Abdomen: Soft, Non tender, Non distended - Derm Derm: Normal color, Warm and dry, No rash - Extremities Extremities: No deformity, No tenderness to palpate, Other (Ambulates without difficulty on a normal and narrow based gait.) - Neuro Neuro: Other (Patient is alert and answers questions appropriately, though somewhat emotionally labile. She is steady on her feet and coordinated. She appears mildly intoxicated. No other gross deficits.) - Psych Psych: Normal mood, Other (Intermittently tearful) Results - Vitals Vitals: Oxygen O2 Source Room air - Labs Labs: Laboratory Tests 09/11/22 17:33 Ethyl Alcohol 252.6 PD MEDICAL DECISION MAKING - ED course Complexity details: reviewed results, re-evaluated patient, considered differential, d/w patient ED course: The patient's ethanol level was found to be 252. I discussed with the patient that I would not treat her with narcotics, either here in the emergency department or to go home with. The patient has demonstrated a longstanding his tory of alcohol abuse and although she is blaming her current drinking on the pain, her longstanding prior history makes no indication that she is only drinking because of the pain and that she would not otherwise be drinking. As she has just recently gone through her medications sooner than the prescription allowed, She is not fit to be given narcotics as an outpatient, particularly with the ongoing drinking. I have redirected her back to her primary doctor to discuss orthopedic referral and other strategies for pain control. Her will pick her up and take her home. Departure - Departure Disposition: 01 Home, Self Care Clinical Impression: Alcoholism Osteoarthritis Qualifiers: Osteoarthritis location: hip Osteoarthritis type: unspecified Laterality: right Qualified Code(s): M16.11 - Unilateral primary osteoarthritis, right hip Condition: Stable Instructions: Hip Osteoarthritis, Hip Osteoarthritis Exercise, ED Alcohol Abuse Comments: You have been given medication to help with your hip discomfort here in the emergency department. Unfortunately, review of your records reveals that you do not only Drinking the last time you were given pain medication, but you have finished the pain medication early. As such, it is too much of a concern with regard to use of both sedating narcotics and heavy alcohol intake to prescribe narcotics again from the emergency department. You will need to work with your primary provider to come up with a chronic pain plan. As far as your os teoarthritis, this is a chronic condition that is not going to be solved simply with a visit to a specialist. They may recommend a hip replacement, but you will most likely need to get help with your alcoholism first before they will be willing to do surgery. Please work with your primary provider to get help with your drinking. Discharge Date/Time: 09/11/22 18:08
[2022-09-11 18:02] VITALS: BP 132/86
== END 2022-09-11 18:08 | disposition home or self-care (01) ==
LOC: EDUNIT# → ED 16:58
DX: F10.129 Alcohol abuse with intoxication, unspecified (principal); M16.11 Unilateral primary osteoarthritis, right hip; E11.9 Type 2 diabetes mellitus without complications; Z79.4 Long term (current) use of insulin; I10 Essential (primary) hypertension; F17.200 Nicotine dependence, unspecified, uncomplicated
CPT/HCPCS: 36415; 80320; 96372; 99283

== ENCOUNTER 2022-10-09 12:39 | Outpatient (CLI) | payer OTHER ==
--- NOTE | 2022-10-09 11:02 | XRAY Report ---
PROCEDURE: Hip 2 View RT INDICATIONS: RIGHT HIP PAIN TECHNIQUE: 2 views of the hip were acquired. COMPARISON: None FINDINGS: Bones: AP view of the pelvis and lateral view of the right hip were performed. Mild degenerative sherley nges of both hips. No fractures or dislocations. No suspicious bony lesions. The visualized pelvic ring appears intact. Soft tissues: No suspicious soft tissue calcifications or masses. IMPRESSION: Mild degenerative changes of the bilateral hips. Reviewed by: Tre Woods on 10/09/2022 11:00 AM [facility] Approved by: Tre Woods on 10/09/2022 11:00 AM [facility] Station ID: [id number]
== END 2022-10-09 12:40 | disposition home or self-care (01) ==
LOC: DI.WOS 12:39
PROVIDERS: ATTEND Orthopaedic Surgery
DX: M16.0 Bilateral primary osteoarthritis of hip (principal)

== ENCOUNTER 2022-10-18 09:14 | Outpatient (CLI) | payer OTHER ==
--- NOTE | 2022-10-18 15:01 | MRI Report ---
PROCEDURE: HIP WO - RT INDICATIONS: RIGHT HIP PAIN TECHNIQUE: Noncontrast coronal T1 spin echo and STIR through the bony pelvis. Coronal and axial T2 fast spin ec ho with fat saturation, sagittal T1 spin echo, and oblique axial T2 fast spin echo with fat saturatio n through the hip. COMPARISON: Right hip radiographs 10/09/2022. FINDINGS: Image quality: Excellent. Bones and joints: Bone marrow of the pelvic ring and proximal femurs show normal signal throughout. No intraosseous lesions or fractures. No avascular necrosis of the femoral heads. Disc desiccation and facet hypertrophy are seen in the included lumbar spine. Tendons: The gluteus medius and minimus tendons demonstrate mild insertional tendinosis. The iliops oas tendon appears intact, without adjacent bursal fluid collections. The origin of the hamstring te ndon is intact at the ischial tuberosity. The tendons for the direct and indirect heads of the rectu s femoris muscle appear intact. Labrum and cartilage: No displaced labral tear is seen. No focal cartilage defect. Mild marginal ost eophyte formation is seen in the lateral acetabulum. There is normal morphology of the femoral head a nd acetabulum. Soft tissues: Mild soft tissue edema is seen within the right adductor sander and obturator externus muscles adjacent to the pubic bone. A lobular cyst is seen extending medially from the inferior join t capsule over the pelvic rim into the right pelvis, which measures approximately 3.6 x 1.4 x 2.9 cm in extent and likely represents a dissecting ganglion cyst. Visualized muscles otherwise demonstrate normal bulk and internal signal. The proximal sciatic neurovascular bundle appears normal adjacent t o the hamstring tendons. No acute abnormality is seen in the included pelvis. IMPRESSION: 1.No discrete labral tear or focal cartilage defect in the right hip. Mild lateral acetabular margina l osteophyte formation. 2.A 3.6 cm lobular cyst is seen extending medially from the inferior right hip. The pelvic rim into t he right pelvis. Findings likely represent a dissecting ganglion cyst although other considerations w ould include a paralabral cyst or other cystic lesion such as a lymphatic malformation. 3.Mild soft tissue edema adjacent to the right pubic bone is suspicious for low-grade strains of the adductor sander and obturator externus muscles. 4.Mild gluteus medius and minimus tendinosis. 5.Degenerative changes are seen in the lumbar spine. Reviewed by: Bry Botello MD on 10/18/2022 3:00 PM PST Approved by: Bry Botello MD on 10/18/2022 3:00 PM PST Station ID: [id number]
== END 2022-10-18 09:15 | disposition home or self-care (01) ==
LOC: DI 09:14
PROVIDERS: ATTEND Orthopaedic Surgery
DX: M67.951 Unspecified disorder of synovium and tendon, right thigh (principal); M47.816 Spondylosis without myelopathy or radiculopathy, lumbar region; M51.36 Other intervertebral disc degeneration, lumbar region

== ENCOUNTER 2022-10-30 09:40 | Outpatient (CLI) | payer OTHER ==
--- NOTE | 2022-10-30 16:23 | XRAY Report ---
PROCEDURE: Chest 2 View X-Ray INDICATIONS: ANTERIOR CHEST PAIN TECHNIQUE: 2 views of the chest were acquired. COMPARISON: Chest x-ray 2 views, 10/11/2018. FINDINGS: Surgical changes and devices: None. Lungs and pleura: No pleural effusions or pneumothorax. Lungs are clear. Mediastinum: Mediastinal contours are normal. Heart size is normal. Bones and chest wall: No suspicious bony abnormalities. Soft tissues appear unremarkable. IMPRESSION: No acute cardiopulmonary disease. Reviewed by: Javier Green MD on 10/30/2022 4:22 PM PST Approved by: Javier Green MD on 10/30/2022 4:22 PM PST Station ID: [id number]
== END 2022-10-30 09:41 | disposition home or self-care (01) ==
LOC: DI 09:40
PROVIDERS: ATTEND Family Medicine
DX: R07.89 Other chest pain (principal)

== ENCOUNTER 2022-11-06 16:26 | Emergency (ER) | payer OTHER ==
[2022-11-06 16:35] VITALS: BP 133/62
--- NOTE | 2022-11-06 17:13 | ED Physician Documentation ---
History of Present Illness - Stated complaint Stated Complaint: PELVIC PX - Chief complaint Chief Complaint: Abd Pain - History obtained from History obtained from: Patient - History of Present Illness Timing: Other (several months) Pain level max: 6 Pain level now: 4 - Additonal information Additional information: Patient is a 57-year-old female who presents to the emergency department right- sided pelvic pain. She states is been ongoing for several months. She has seen gynecology and been told it is secondary to an ovarian cyst. She states that Motrin and Tylenol do not help. She states she has been using vodka to medicate herself for pain. Does not feel suicidal or homicidal. Currently has minimal pain. No fevers. No chills. No vomiting. No vaginal bleeding or discharge. Review of Systems Constitutional: denies: Fever, Chills Respiratory: denies: Cough GI: denies: Vomiting, Diarrhea Skin: denies: Rash Musculoskeletal: denies: Neck pain, Back pain Neurologic: denies: Headache PD PAST MEDICAL HISTORY - Past Medical History Cardiovascular: Hypertension, High cholesterol Respiratory: Asthma Neuro: None Endocrine/Autoimmune: Type 2 diabetes GI: GERD DRILLER'S ASSISTANT: None : None HEENT: None Psych: Depression, Anxiety, Other Musculoskeletal: None Derm: Psoriasis - Past Surgical History Past Surgical History: No /DRILLER'S ASSISTANT: section, Dilation and currettage - Present Medications Home Medications: Ambulatory Orders Medication Instructions Recorded Confirmed Gabapentin 300 mg PO TID 05/01/19 05/01/19 Halobetasol Propionate 1 applic TOP BID PRN 05/01/19 05/01/19 Insulin Aspart [NovoLOG] 10 units SUBQ TIDWM 05/01/19 05/01/19 Insulin Glargine [Lantus Solostar] 54 units SUBQ DAILY 05/01/19 05/01/19 Metformin HCl 500 mg PO BIDWM 05/01/19 05/01/19 Metoprolol Tartrate 25 mg PO BID 05/01/19 05/01/19 Simvastatin 40 mg PO DAILY 05/01/19 05/01/19 Venlafaxine ER [Effexor ER] 75 mg PO DAILY 05/01/19 05/01/19 Zolpidem Tartrate [Zolpidem 12.5 mg PO QPM PRN 05/01/19 05/01/19 Tartrate ER] amLODIPine [Norvasc] 5 mg PO DAILY 05/01/19 05/01/19 hydrOXYzine pamoate [Hydroxyzine 25 mg PO QPM PRN 05/01/19 05/01/19 Pamoate] lisinopriL [Lisinopril] 40 mg PO DAILY 05/01/19 05/01/19 Cholecalciferol [Vitamin D3] 5,000 unit PO DAILY #30 capsule 05/03/19 [place]-3 Acid Ethyl Esters [Lovaza] 1 gm PO BID #60 capsule 05/03/19 chlordiazePOXIDE [Librium] 25 mg PO UD #6 capsule 05/03/19 chlordiazePOXIDE [Librium] See Taper PO UD 4 Days #13 capsule 05/04/19 Lorazepam [Ativan] 1 mg PO TID PRN #2 tablet 05/05/19 Lorazepam [Ativan] 1 mg PO TID PRN #4 tablet 06/02/19 Cyclobenzaprine [Flexeril] 10 mg PO TID PRN #20 tablet 07/21/22 Oxycodone HCl/Acetaminophen 1 - 2 each PO Q6H PRN #14 tablet 07/21/22 [Percocet 5-325 mg Tablet] HYDROcod/ACETAM 5/325 [[place] 5/325] 1 - 2 tab PO Q6H PRN #15 tablet 09/05/22 Meloxicam [Mobic] 7.5 mg PO BID PRN #10 tablet 09/08/22 - Allergies Allergies/Adverse Reactions: Allergies Allergy/AdvReac Type Severity Reaction Status Date / Time tramadol Allergy Unknown Anxiety Verified 09/08/22 17:49 cyclosporine Allergy Unknown Verified 09/08/22 17:49 bupropion HCl * AdvReac Unknown Anxiety Verified 09/08/22 17:49 [From Wellbutrin] fluoxetine HCl * AdvReac Unknown Hallucinati Verified 09/08/22 17:49 [From Prozac] ons rosiglitazone AdvReac Unknown Rash Verified 09/08/22 17:49 - Social History Does the pt smoke?: Yes Smoking Status: Current every day smoker Does the pt drink ETOH?: Yes Does the pt have substance abuse?: No - Immunizations Immunizations are current?: Yes - POLST Patient has POLST: No PD ED PE NORMAL - Vitals Vital signs reviewed: Yes - General General: Alert and oriented X 3, No acute distress - HEENT HEENT: PERRL, Moist mucous membranes - Neck Neck: Supple, no meningeal sign - Cardiac Cardiac: RRR, Strong equal pulses - Respiratory Respiratory: No respiratory distress, Clear bilaterally - Abdomen Abdomen: Soft, Non tender, Non distended - Back Back: No CVA TTP, No spinal TTP - Derm Derm: Warm and dry - Extremities Extremities: No edema, No calf tenderness / cord - Neuro Neuro: Alert and oriented X 3 - Psych Psych: Normal mood, Normal affect Results - Vitals Vitals: Vital Signs - 24 hr 11/06/22 16:32 Temperature 36.3 C L Heart Rate 74 Respiratory 14 Rate Blood Pressure 133/62 H O2 Saturation 99 Oxygen O2 Source Room air - Rads (name of study) Pelvic ultrasound Radiology: Final report received, See rad report PD MEDICAL DECISION MAKING - ED course Complexity details: reviewed results, re-evaluated patient, considered differential, d/w patient ED course: No significant abnormality on pelvic ultrasound. Patient has no tenderness on examination. No indication for lab work. This been ongoing for several months and has been worked up extensively by her doctor. Given a dose of Toradol. Recommend that she follow-up with her doctor for pain control. Do not feel comfortable utilizing narcotic pain medication for this intoxicated patient, who drinks regularly. Patient counseled regarding signs and symptoms for which I believe and urgent re-evaluation would be necessary. Patient with good understanding of and agreement to plan and is comfortable going home at this time This document was made in part using voice recognition software. While efforts are made to proofread this document, sound alike and grammatical errors may occur. Departure - Departure Disposition: 01 Home, Self Care Clinical Impression: Pelvic pain in female Alcoholic intoxication Qualifiers: Complication of substance-induced condition: uncomplicated Qualified Code(s): F10.920 - Alcohol use, unspecified with intoxication, uncomplicated Condition: Good Instructions: ED Pelvic Pain [facility] Follow-Up: Your,doctor in 1 week [Other] Comments: The cause of your symptoms is unclear. Please follow-up with your doctor for further care. There is no cyst on your pelvic ultrasound today. Discharge Date/Time: 11/06/22 19:15
[2022-11-06] MEDS ORDERED: KETOROLAC 60 MG/2 ML VIAL IM STA (18:39)
--- NOTE | 2022-11-06 18:58 | Ultrasound Report ---
PROCEDURE: Pelvic w/Transvag+Doppler Comp INDICATIONS: pelvic pain, R, states known cyst TECHNIQUE: Real-time scanning was performed of the pelvic organs, with image documentation. Additional endovagi nal scanning was necessary due to incomplete visualization of the adnexal and endometrial structures by transabdominal scanning. Doppler interrogation was performed of the ovaries bilaterally. COMPARISON: None FINDINGS: Uterus: 5.3 x 3.6 x 4.4 cm. Retroverted. Overall mildly heterogeneous echotexture. Endometrium measur es 4 mm at the upper limit of normal. Ovaries: Right ovary measures 1.2 cc. Left ovary measures 1.9 cc. Color and spectral flows are docume nted. Other: No pathologic fluid. At the area of pain in the right groin, no sonographic abnormality is noted. IMPRESSION: No sonographic abnormality identified for pelvic pain. Reviewed by: Dorian Lemus MD on 11/06/2022 6:57 PM PST Approved by: Dorian Lemus MD on 11/06/2022 6:57 PM PST Station ID: [id number]
== END 2022-11-06 19:15 | disposition home or self-care (01) ==
LOC: ED 16:26
DX: R10.2 Pelvic and perineal pain (principal); F10.129 Alcohol abuse with intoxication, unspecified; F17.200 Nicotine dependence, unspecified, uncomplicated; I10 Essential (primary) hypertension; E11.9 Type 2 diabetes mellitus without complications; F32.A Depression, unspecified; F41.9 Anxiety disorder, unspecified; Z79.84 Long term (current) use of oral hypoglycemic drugs; Z79.4 Long term (current) use of insulin
CPT/HCPCS: 93975; 96372; 99282; 99284

== ENCOUNTER → 2022-11-06 | Outpatient (CLI) | payer OTHER | END | disposition critical access hospital (66) | LOC: EMS 15:59 | DX: R10.2 Pelvic and perineal pain (principal); N94.89 Other specified conditions associated with female genital organs and menstrual cycle; R41.82 Altered mental status, unspecified; R47.81 Slurred speech; Z72.89 Other problems related to lifestyle | CPT/HCPCS: A0425; A0429 ==

== ENCOUNTER 2023-04-28 17:07 | Outpatient (CLI) | payer OTHER | END 2023-04-28 23:59 | disposition EMS.NT | LOC: EMS 17:07 | DX: R06.02 Shortness of breath (principal); F10.129 Alcohol abuse with intoxication, unspecified ==

== ENCOUNTER 2023-07-04 10:02 | Outpatient (CLI) | payer OTHER ==
--- NOTE | 2023-07-04 11:03 | XRAY Report ---
PROCEDURE: Chest 2 View X-Ray INDICATIONS: ENCOUNTER FOR SCREENING FOR RESPIRATORY TUBERCULOS TECHNIQUE: 2 views of the chest were acquired. COMPARISON: Chest radiograph 10/30/2022. FINDINGS: Surgical changes and devices: None. Lungs and pleura: No pleural effusions or pneumothorax. Lungs are clear. Mediastinum: Mediastinal appears normal. Heart size is normal. Bones and chest wall: No suspicious bony lesions. Overlying soft tissues appear unremarkable. IMPRESSION: No acute cardiopulmonary process. Reviewed by: Esther Ramirez MD on 07/04/2023 11:02 AM PDT Approved by: Esther Ramirez MD on 07/04/2023 11:02 AM PDT Station ID: [id number]
== END 2023-07-04 10:03 | disposition home or self-care (01) ==
LOC: DI 10:02
PROVIDERS: ATTEND Physician Assistant Medical
DX: Z11.1 Encounter for screening for respiratory tuberculosis (principal)
CPT/HCPCS: 81599; 86480

== ENCOUNTER 2023-10-16 22:39 | Outpatient (CLI) | payer OTHER | END 2023-10-16 22:40 | disposition left against medical advice (07) | LOC: EMS 22:39 | DX: M79.672 Pain in left foot (principal); M79.671 Pain in right foot; L40.9 Psoriasis, unspecified ==

== ENCOUNTER 2023-11-01 22:49 | Outpatient (CLI) | payer OTHER | END 2023-11-01 22:50 | disposition critical access hospital (66) | LOC: EMS 22:49 | DX: L40.9 Psoriasis, unspecified (principal); M79.672 Pain in left foot; M79.671 Pain in right foot; F10.129 Alcohol abuse with intoxication, unspecified; R45.89 Other symptoms and signs involving emotional state | CPT/HCPCS: A0425; A0429 ==

== ENCOUNTER 2023-11-01 23:14 | Emergency (ER) | payer OTHER ==
[2023-11-01] MEDS ORDERED: KETOROLAC 30 MG/ML VIAL IM STA (23:35)
--- NOTE | 2023-11-01 23:42 | ED Physician Documentation ---
PD HPI LOWER EXT INJURY - Stated complaint Stated Complaint: BILAT FOOT PX - Chief complaint Chief Complaint: Ext Problem - History obtained from History obtained from: Patient - Additional information Additional information: 58yF with pmh dm, etoh abuse, BL chronic foot pain, p/w BL foot pain X several weeks. patient states she couldn't sleep tonight so came in for pain control . she has appointment with podiatry 11/13. denies injury. denies fevers or swelling/redness. PD PAST MEDICAL HISTORY - Past Medical History Past Medical History: Yes Cardiovascular: Hypertension, High cholesterol Respiratory: Asthma Neuro: None Endocrine/Autoimmune: Type 2 diabetes GI: GERD CASE FILLER: None : None HEENT: None Psych: Depression, Anxiety, Other Musculoskeletal: None Derm: Psoriasis - Past Surgical History Past Surgical History: No /CASE FILLER: section, Dilation and currettage - Present Medications Home Medications: Ambulatory Orders Medication Instructions Recorded Confirmed Gabapentin 300 mg PO TID 05/01/19 05/01/19 Halobetasol Propionate 1 applic TOP BID PRN 05/01/19 05/01/19 Insulin Aspart [NovoLOG] 10 units SUBQ TIDWM 05/01/19 05/01/19 Insulin Glargine [Lantus Solostar] 54 units SUBQ DAILY 05/01/19 05/01/19 Metformin HCl 500 mg PO BIDWM 05/01/19 05/01/19 Metoprolol Tartrate 25 mg PO BID 05/01/19 05/01/19 Simvastatin 40 mg PO DAILY 05/01/19 05/01/19 Venlafaxine ER [Effexor ER] 75 mg PO DAILY 05/01/19 05/01/19 Zolpidem Tartrate [Zolpidem 12.5 mg PO QPM PRN 05/01/19 05/01/19 Tartrate ER] amLODIPine [Norvasc] 5 mg PO DAILY 05/01/19 05/01/19 hydrOXYzine pamoate [Hydroxyzine 25 mg PO QPM PRN 05/01/19 05/01/19 Pamoate] lisinopriL [Lisinopril] 40 mg PO DAILY 05/01/19 05/01/19 Cholecalciferol [Vitamin D3] 5,000 unit PO DAILY #30 capsule 05/03/19 [place]-3 Acid Ethyl Esters [Lovaza] 1 gm PO BID #60 capsule 05/03/19 chlordiazePOXIDE [Librium] 25 mg PO UD #6 capsule 05/03/19 chlordiazePOXIDE [Librium] See Taper PO UD 4 Days #13 capsule 05/04/19 Lorazepam [Ativan] 1 mg PO TID PRN #2 tablet 05/05/19 Lorazepam [Ativan] 1 mg PO TID PRN #4 tablet 06/02/19 Cyclobenzaprine [Flexeril] 10 mg PO TID PRN #20 tablet 07/21/22 Oxycodone HCl/Acetaminophen 1 - 2 each PO Q6H PRN #14 tablet 07/21/22 [Percocet 5-325 mg Tablet] HYDROcod/ACETAM 5/325 [Ucon 5/325] 1 - 2 tab PO Q6H PRN #15 tablet 09/05/22 Meloxicam [Mobic] 7.5 mg PO BID PRN #10 tablet 09/08/22 Ketorolac [Toradol] 10 mg PO Q6H PRN #20 tablet 11/01/23 Miconazole Nitrate [Athlete's Foot 130 gm TP QDBREAKFAST #130 gm 11/01/23 Reasnor] - Allergies Allergies/Adverse Reactions: Allergies Allergy/AdvReac Type Severity Reaction Status Date / Time tramadol Allergy Unknown Anxiety Verified 11/01/23 23:22 cyclosporine Allergy Unknown Verified 11/01/23 23:22 bupropion HCl * AdvReac Unknown Anxiety Verified 11/01/23 23:22 [From Wellbutrin] fluoxetine HCl * AdvReac Unknown Hallucinati Verified 11/01/23 23:22 [From Prozac] ons rosiglitazone AdvReac Unknown Rash Verified 11/01/23 23:22 - Social History Does the pt smoke?: Yes Smoking Status: Current every day smoker Does the pt drink ETOH?: Yes Does the pt have substance abuse?: No - Immunizations Immunizations are current?: Yes - POLST Patient has POLST: No PD ED PE NORMAL - Vitals Vital signs reviewed: Yes - General General: Alert and oriented X 3, No acute distress, Well developed/nourished - Derm Derm: Normal color, Warm and dry, Other (dry skin on BL feet without erythema or open sores. no cracked skin between toes. BL first toes with large bunions. ) - Extremities Extremities: Other (2+ BL DP pulses. CSM intact BL LE) Results - Vitals Vitals: Vital Signs - 24 hr 11/01/23 11/01/23 23:22 23:28 Temperature 36.5 C 36.5 C Heart Rate 76 79 Respiratory 18 17 Rate Blood Pressure 119/57 L 119/57 L O2 Saturation 97 100 Oxygen O2 Source Room air PD Medical Decision Making - ED course ED course: 58yF p/w BL foot pain X several weeks. symptomatic improvement with IM toradol. rx sent to pharmacy. symptomatic care at home discussed. return precautions given. plan to f/u podiatry 11/13. Departure - Departure Disposition: Home, Self Care Clinical Impression: Pain of lower extremity Condition: Stable Instructions: Bunion Prescriptions: Miconazole Nitrate [Athlete's Foot [place]] 130 gm TP QDBREAKFAST #130 gm Ketorolac [Toradol] 10 mg PO Q6H PRN #20 tablet PRN Reason: Pain Comments: You were seen in the emergency department for chronic pain to your feet. Please buy a bottle of eucerin cream and massage into your feet nightly before bed. make sure the space between the toes and all creases stay dry during the day to prevent worsening of fungal infection. A prescription for athletes foot spray and pain medicine was sent electronically to [facility] in [place]. Please follow-up with your private branch exchange service advisor and return to the emergency department if you have any new or worsening symptoms or other concerns. Forms: PCP List
[2023-11-02 00:07] VITALS: BP 126/71; O2SAT 98
== END 2023-11-01 23:58 | disposition home or self-care (01) ==
LOC: EDUNIT# → ED 23:14
DX: M79.672 Pain in left foot (principal); M79.671 Pain in right foot; G89.29 Other chronic pain; F17.200 Nicotine dependence, unspecified, uncomplicated
CPT/HCPCS: 96372; 99283

== ENCOUNTER 2024-02-24 13:56 | Outpatient (CLI) | payer OTHER | END 2024-02-24 23:59 | disposition EMS.NT | LOC: EMS 13:56 | DX: F10.129 Alcohol abuse with intoxication, unspecified (principal) ==